=== PATIENT | male | born 1950 | race African-American/Black ===

== ENCOUNTER 2017-07-04 13:39 | Emergency (ER) | payer OTHER ==
[~2017-07-04] VITALS: Ht 180.3 cm; Wt 136.1 kg
[2017-07-04] MEDS ORDERED: METFORMIN HCL500 MG PO (13:54)
[2017-07-04] MEDS ORDERED: GLIPIZIDE 10 MG10 MG PO (13:54)
[2017-07-04] MEDS ORDERED: NEURONTIN300 MG PO (13:55)
[2017-07-04] MEDS ORDERED: ACTOS 30 MG TAB30 M2 PO (13:55)
[2017-07-04] MEDS ORDERED: MAXZIDE-25 MG1 EACH PO (13:55)
[2017-07-04] MEDS ORDERED: PROTONIX40 M1 PO (13:55)
[2017-07-04] MEDS ORDERED: FARXIGA10 MG PO (13:55)
[2017-07-04 16:24] LABS: HEMATOCRIT 39.8 % (42.0-52.0); HEMOGLOBIN 12.7 gm/dL (14.0-18.0); MCH 22.9 pg (26.0-34.0); MCV 71.7 fL (80.0-100.0); RBC 5.55 mil/uL (4.50-6.00); RDW 14.8 % (10.5-14.5); WBC 9.3 thou/uL (4.0-11.0)
[2017-07-04 16:31] LABS: CREATININE 2.1 mg/dL (0.7-1.3); POTASSIUM 3.9 mmol/L (3.5-5.1)
[2017-07-04 16:38] VITALS: BP 163/83
[2017-07-04] MEDS ORDERED: ELIQUIS5 MG PO (16:54)
[2017-07-04] MEDS ORDERED: HYDROCODONE-AP1 EAC6 PO (16:54)
== END 2017-07-04 19:00 | disposition home or self-care (01) ==
LOC: ER 13:39
PROVIDERS: Physician Assistant
DX: I82.412 Acute embolism and thrombosis of left femoral vein (principal); I82.432 Acute embolism and thrombosis of left popliteal vein; N17.9 Acute kidney failure, unspecified

== ENCOUNTER → 2017-07-09 | Outpatient (CLI) | payer OTHER ==
[~2017-07-09] MED LIST: ACTOS 30 MG TAB30 M2 PO; AMLODIPINE BESY10 MG PO; ELIQUIS5 MG PO; ENOXAPARIN150 MG/11 SUBQ; FARXIGA10 MG PO; GLIPIZIDE 10 MG10 MG PO; HYDROCODONE-AP1 EAC6 PO; LISINOPRIL20 MG PO; MAXZIDE-25 MG1 EACH PO; METFORMIN HCL500 MG PO; METOCLOPRAM5 MG/1 ML IV PUSH; MIRALAX17 GM PO; NEURONTIN300 MG PO; NOVOLOG100 UNIT/1 SUBQ; ONDANSETRON HCL4 M1 IV PUSH; PROTONIX40 M1 PO; [UNRECOGNIZED DRUG - CODE] IV
== END ==
LOC: ULTRA 10:44
DX: I82.4Y2 Acute embolism and thrombosis of unspecified deep veins of left proximal lower extremity (principal)

== ENCOUNTER 2017-08-10 12:38 | Inpatient (IN) | payer OTHER ==
[~2017-08-10] VITALS: Ht 180.3 cm; Wt 140.2 kg
--- NOTE | ~2017-08-10 | D ---
[facility] [place] [address] DISCHARGE SUMMARY Name: OLIVERCHRISTOPHER Room #: 459-P [facility] IN ..#: [id number] Admission: 08/10/17 Attend Phys: Emmanuel Carreon MD Discharge: 08/16/17 Date of : 46 Report #: [id number] THIS REPORT FOR: //name// CC: Emmanuel Carreon DATE OF SERVICE: 08/16/2017 SUMMARY OF HISTORY AND PHYSICAL: The patient presented to my office with a history of progressive intermittent abdominal pain with nausea and vomiting that became more constant over the previous 2 weeks. He attributed his symptoms to Eliquis, a new medication that was started when he was diagnosed with an acute left leg DVT in the [facility] on 07/04/2017. He required admission because he was dehydrated, he was unable to keep any fluids down, and he was in constant discomfort. SUMMARY OF HOSPITAL COURSE: He was admitted and placed on intravenous fluids, and had a noncontrast CT scan of his abdomen and pelvis. The CT showed marked distention of the stomach with recently ingested food and fluid with mild stranding along the side of the descending segment of the duodenum to the right of the pancreatic head suggesting possible duodenitis. Minor strand-like atelectasis of the lower lungs bilaterally was the only other abnormal finding. Mild mesenteric fat stranding along the side of the descending segment of the duodenum suggested possible duodenitis. He was seen in GI consultation and underwent an EGD the following day that revealed thickened folds in the second portion of the duodenum, either inflammatory or neoplastic in nature. There was some edema in the second portion of the duodenum as well as thickened folds of otherwise normal mucosa. The lumen was narrowed, but the scope passed easily. There was no obvious mass effect. Multiple biopsies were obtained. The stomach showed retained food material. The rest of the EGD examination and structures examined were normal. The patient was then started on intravenous metoclopramide 10 mg IV every 6 hours. His nausea improved slightly, but persisted over the next 3 days prior to his transfer to [facility]. He was able to drink only a mild amount of clear liquids, and was able to drink an occasional Ensure type supplement drink. Because of his poor oral intake he was started on peripheral intravenous protein solution. LABORATORY DATA: His biopsies from the second portion of the duodenum showed small bowel mucosa with mild peptic duodenitis; no evidence for celiac sprue nor dysplasia was seen. Stool for hidden blood was positive, but was obtained several days after the EGD [address] [address] DISCHARGE SUMMARY Name: CHRISTOPHER OLIVER Room #: 459-P [facility] IN [facility]#: [id number] Admission: 08/10/17 Attend Phys: Emmanuel Carreon MD Discharge: 08/16/17 Date of : 46 Report #: [id number] and biopsy were done. Admitting creatinine was 2.8, baseline in the office had been 2.4, but with adequate rehydration his baseline creatinine dropped to 1.5. BUN was 33 on admission and dropped to 14. His diabetes was handled by sliding scale insulin. His albumin the day after admission, with rehydration, was low at 2.7, fulfilling the criteria for severe malnutrition, consistent with his history of not eating much in the previous 2 weeks. He took a tremendous amount of magnesium containing antacid the 2 weeks prior to admission, and his admitting magnesium was elevated at 2.6. With rehydration it normalized to 1.9, and then immediately prior to transfer it was low at 1.6. WBCs on admission were 10.1 thousand with a very mild left shift of 70% segmented neutrophils. Hemoglobin was 11.8. Immediately prior to discharge hemoglobin was stable at 10.8. MCV was low at 71. Platelets were normal at 374,000. His hemoglobin A1c was elevated at 10.5, consistent with his previous history of poorly controlled diabetes. Urinalysis on admission was normal with the exception of trace protein and trace glucose. Ultrasound of the left leg was compared with 07/04/2017: At that time deep venous thrombosis involved the popliteal vein and the 2 distal left superficial femoral veins above the knee, with the common femoral, posterior tibial and peroneal veins remaining patent. The study of 07/09/2017 showed persisting thrombus in the superficial femoral vein, and the current Doppler on 08/10/2017 showed resolution with the exception of a small portion of the popliteal vein remaining thrombosed. There is an overall decrease in the amount of popliteal thrombus, but it remained occlusive. PA and lateral chest film showed shallow inspiration with mild strand-like atelectasis in both bases. DISCHARGE DIAGNOSES: 1. Functional gastric outlet obstruction. 2. Abnormal second portion of the duodenum with thickened folds and mucosal edema. No mass effect was seen, and the scope passed easily through this region. However, food particles were identified stuck in this area, and it is functionally obstructing drainage from the stomach. 3. Uncontrolled type 2 diabetes. [facility] [address] [place] [address] DISCHARGE SUMMARY Name: CHRISTOPHER OLIVER Room #: 459-P DIS IN M.R.#: [id number] Admission: 08/10/17 Attend Phys: Emmanuel Carreon MD Discharge: 08/16/17 Date of : 46 Report #: [id number] 4. Noncompliance with diet and diabetic medications. 5. Morbid obesity. 6. Criteria are met for severe malnutrition. 7. Hypertension. 8. Microcytic anemia. 9. Creatinine criteria were met for acute renal failure/acute kidney injury. 10. Mild to moderate chronic kidney disease. 11. Diabetic peripheral neuropathy. 12. Other problems as in the H & P. PLAN: The patient is being transferred to [facility] to obtain a procedure not available at our institution, endoscopic ultrasound biopsy of the abnormal area of the second portion of the duodenum. This area is deep to the surface, and not easily reached externally for a needle biopsy. For the patient's safety this procedure is much preferred as the next step in his evaluation. Despite full medical management, he still remains with a functional gastric outlet obstruction. A copy of this dictation will be sent to the accepting institution along with the complete medical record. By: 1118 1150 Emmanuel Carreon MD /nt
--- NOTE | ~2017-08-10 | H ---
[facility] [place] [address] HISTORY AND PHYSICAL Name: CHRISTOPHER OLIVER Room #: 459-P [facility] IN .R.#: [id number] Admission: 08/10/17 Attend Phys: Emmanuel Carreon MD Discharge: Date of : 46 Report #: [id number] THIS REPORT FOR: //name// CC: Emmanuel Carreon DATE OF SERVICE: 08/10/2017 MEDICATIONS: Triamterene 37.5 at nighttime, HCTZ 25 mg 1 daily, dicyclomine 20 mg every hours as needed for stomach pain, metformin 1000 mg twice daily, meloxicam 15 mg once daily as needed for arthritis pain, furosemide 40 mg 1 daily as needed for swelling and he has not needed this medicine recently. Fish oil daily. Amlodipine and/benazepril 20 one daily at nighttime, Farxiga 10 mg twice daily for diabetes, pioglitazone 30 mg once daily at night for diabetes, pantoprazole 40 mg daily at night, glipizide 10 mg twice daily, Eliquis 5 mg twice daily, Toujeo 10 units in the evening at bedtime, warfarin has adjusted, and hydrocodone 5/325 from his recent time in the Emergency Room. OBJECTIVE: GENERAL: Shows an obese -[place]ib[place] male who appears uncomfortable and weak. HEENT: His oropharynx mucosa is dry. LUNGS: Clear. CARDIOVASCULAR: His heart tones are unremarkable. EXTREMITIES: He has trace 1+ ankle edema. LABORATORY DATA: His creatinine is elevated at 2.8 compared with his baseline of 2.4. CT scan of the abdomen with [id number] shows a large amount of retained fluid and food debris in the stomach itself. Blood sugars varied between 146 and 206. His blood pressures are 148/53-172/72. Urinalysis is unremarkable. Abdominal report of the CT scan showed marked distention of the stomach with recently ingested food and fluid as contents. There is mild stranding along the descending segment of the duodenum (to the right of the pancreatic head) thus, suggesting possibly duodenitis. The gallbladder is mildly distended, but no pericholecystic inflammatory changes are identified. ASSESSMENT: 1. Acute gastric retention. 2. Dehydration with acute kidney injury/ creatinine rise criteria for acute renal failure. 3. Hypertension. 4. Uncontrolled DM II [address] [address] HISTORY AND PHYSICAL Name: CHRISTOPHER OLIVER Room #: 459-P [facility] IN [facility].#: [id number] Admission: 08/10/17 Attend Phys: Emmanuel Carreon MD Discharge: Date of : 46 Report #: [id number] 5. Subacute DVT left knee PLAN: He will be seen in GI consultation for an EGD. His INR will be corrected. He was on 1/2 dose of eliquis with last dose yesterday, and it is on hold, to wait up to 5 days from the last dose. With all his nausea and vomiting, he will be n.p.o. If symptoms are worse, then an NG tube will be placed. By: 0133 [id number] Emmanuel Carreon MD /romel
--- NOTE | ~2017-08-10 | P ---
[facility] [place] [address] PROCEDURE REPORT Name: CHRISTOPHER OLIVER Room #: 459-P [facility] IN M.R.#: [id number] Admission: 08/10/17 Attend Phys: Emmanuel Carreon MD Discharge: Date of : 46 Report #: [id number] THIS REPORT FOR: //name// CC: Emmanuel Carreon MD BRIEF HISTORY: The patient is a 67-year-old male with nausea and vomiting and abnormal CT with fat necrosis in the region of the duodenum. PREOPERATIVE DIAGNOSES: Nausea, vomiting, and abnormal duodenum. POSTOPERATIVE DIAGNOSES: 1. Thickened folds in the second portion of duodenum, inflammatory versus neoplastic. 2. Retained food material in the stomach, partial outlet obstruction versus gastroparesis. MEDICATIONS: Deep sedation with propofol per anesthesia. SPECIMEN: Biopsy second portion of duodenum. ESTIMATED BLOOD LOSS: 3 mL. PROCEDURE: EGD with biopsy. DESCRIPTION OF PROCEDURE: Prior to propofol sedation, the procedure of upper endoscopy was discussed with the patient as well as potential risks, benefits, and complications. He indicates he understands and desires to proceed. With the patient in left lateral decubitus position, the [employer] video endoscope was inserted in the cervical esophagus under direct vision without difficulty. Examination of this organ through its entire length revealed normal esophageal mucosa down the squamocolumnar junction. Squamocolumnar junction was inspected and noted to be unremarkable. Scope was advanced in the stomach, which was examined on end view as well as retroflexed views. There was a pool of amorphous specimen material in the fundus of the stomach. There was a minimal amount of liquid. Within these limitations, exam of the stomach on end view as well as retroflexed views revealed unremarkable gastric mucosa. No mass lesions were seen. The pylorus was noted to be unremarkable , duodenal bulb was normal. However, in the very distal bulb, there was a small amount of food debris. The lumen was narrowed, but the scope passed easily through the second portion of duodenum into the third portion of duodenum, which had normal mucosa and normal luminal size. As well as we could the second portion of duodenum was inspected. The mucosa was intact. There was some edema. I do not see any obvious mass effect, but a neoplastic lesion could not be entirely excluded. The scope was passed through this area on several occasions. Multiple biopsies were obtained. At that point, the scope was slowly withdrawn and careful [address] [address] PROCEDURE REPORT Name: OLIVERCHRISTOPHER Room #: 459-P [facility] IN .R.#: [id number] Admission: 08/10/17 Attend Phys: Emmanuel Carreon MD Discharge: Date of : 46 Report #: [id number] circumferential views confirmed the above findings. The patient tolerated the procedure well. DISPOSITION: The patient with evidence of a process in the second portion of duodenum. The mucosa appeared to be edematous, a neoplastic process cannot be entirely excluded. We will follow up on biopsies. If biopsies are nondiagnostic, may need to consider further investigation, possibly a needle biopsy or surgical evaluation. <ELECTRONICALLY SIGNED> By: Steve Gil MD 08/12/17 1759 1403 1624 Steve Gil MD /nt
--- NOTE | ~2017-08-10 | S ---
[facility] [place] [address] SURGICAL PATH RPT PROCEDURE Name: CHRISTOPHER OLIVER Room #: 459-P ADM IN M.R.#: [id number] Admission: 08/10/17 Date of : 46 Discharge: Report #: [id number] Path Case #: [id number] PATHOLOGY REPORT COLLECTION DATE: 08/12/2017 RECEIVED DATE: 08/12/2017 SUBMITTING PHYS: Dr. Steve Gil OTHER PHYS: Dr. Emmanuel Carreon SPECIMEN(S) RECEIVED: A.2nd portion duodenum * * * * * * * * * * * * FINAL DIAGNOSIS: "Second portion duodenum", biopsy: - Small bowel mucosa with mild peptic duodenitis; no evidence of celiac sprue and no dysplasia seen. (CLW:marquita; 08/13/2017) PATHOLOGIST: Arina Lockett M.D. REPORT ELECTRONICALLY SIGNED BY: Arina Lockett M.D. DATE/TIME: 08/13/2017 13:48 * * * * * * * * * * * * GROSS PATHOLOGY: Received in formalin labeled "BOB Vigil second portion duodenum, rule out neoplasm," are 4 segments of moralez soft tissue measuring 1.4 x 1.3 x 0.3 cm in aggregate dimensions and ranging from 0.1 to 0.4 cm in maximum dimension. The specimen is submitted entirely in cassette A1. (TSD; 08/12/2017) CLINICAL HISTORY: Pre-OP DX: Nausea, vomiting, abnormal duodenum on CT Post-OP DX: Abnormal duodenum INITIAL CPT CODE(S): A; 07444 Professional services performed by [facility] at [facility] [address], [place] [address] Technical services performed by [facility] at [address] [place] [address]. [facility] [address] [place] [address] SURGICAL PATH RPT PROCEDURE Name: CHRISTOPHER OLIVER Room #: 459-P ADM IN M.R.#: [id number] Admission: 08/10/17 Date of : 46 Discharge: Report #: [id number] Path Case #: [id number] [facility] [address] [address] PHONE: [phone] DIRECTOR: Nikunj Mary M.D. * * * END OF REPORT * * *
[2017-08-10 13:45] VITALS: BP 143/81
[2017-08-10 15:15] LABS: ABSOLUTE NEUTROPHILS 7.5 thou/uL (1.4-8.2); BASOPHILS 1.2 % (0.0-2.0); EOSINOPHILS 1.7 % (0.0-3.0); HEMATOCRIT 37.5 % (42.0-52.0); HEMOGLOBIN 11.8 gm/dL (14.0-18.0); LYMPHOCYTES 15.3 % (24.0-44.0); MCH 22.3 pg (26.0-34.0); MCHC 31.4 g/dL (28.0-37.0); MONOCYTES 11.6 % (1.0-8.0); PLATELET COUNT 374 thou/uL (150-400); POLYS 70.2 % (36.0-66.0); RBC 5.28 mil/uL (4.50-6.00); RDW 14.6 % (10.5-14.5); WBC 10.6 thou/uL (4.0-11.0)
[2017-08-10 15:30] LABS: ALBUMIN 3.2 g/dL (3.4-5.0); CALCIUM 10.3 mg/dL (8.5-10.1); CREATININE 2.8 mg/dL (0.7-1.3); POTASSIUM 4.4 mmol/L (3.5-5.1); TOTAL BILIRUBIN 0.2 mg/dL (<0.1-1.0); TOTAL PROTEIN 7.6 g/dL (6.4-8.2)
[2017-08-10 15:33] LABS: APTT 32.9 Seconds (24.5-32.8); INR 1.9
[2017-08-10 15:46] LABS: ANISOCYTOSIS 1+; HYPOCHROMASIA 1+
[2017-08-10 15:57] LABS: % SATURATION 15 % (20-39); IRON 38 ug/dL (65-175); TIBC 255 ug/dL (250-450)
[2017-08-10 16:35] VITALS: BP 149/83
[2017-08-10 19:16] VITALS: BP 144/67
[2017-08-11 02:10] LABS: GLYCOHEMOGLOBIN (HGB A1C) 10.5 % (4.8-5.6)
[2017-08-11 04:10] VITALS: BP 147/78
[2017-08-11 06:02] LABS: URINE BILIRUBIN NEGATIVE (Negative); URINE BLOOD NEGATIVE (Negative); URINE CLARITY CLEAR; URINE COLOR YELLOW; URINE GLUCOSE-RANDOM* TRACE (Negative); URINE KETONES NEGATIVE (Negative); URINE LEUKOCYTES-REFLEX NEGATIVE (Negative); URINE NITRITE-REFLEX NEGATIVE (Negative); URINE PROTEIN (DIPSTICK) TRACE (Negative); URINE SPECIFIC GRAVITY 1.015 (1.005-1.035); URINE UROBILINOGEN 0.2 E.U./dl (0.2-1.0)
[2017-08-11 06:12] LABS: HEMATOCRIT 34.7 % (42.0-52.0); HEMOGLOBIN 11.1 gm/dL (14.0-18.0); MCH 22.6 pg (26.0-34.0); MCV 70.7 fL (80.0-100.0); RBC 4.91 mil/uL (4.50-6.00); RDW 14.3 % (10.5-14.5); WBC 7.6 thou/uL (4.0-11.0)
[2017-08-11 06:15] LABS: ALBUMIN 2.7 g/dL (3.4-5.0); CALCIUM 9.4 mg/dL (8.5-10.1); CREATININE 2.4 mg/dL (0.7-1.3); POTASSIUM 3.8 mmol/L (3.5-5.1); TOTAL BILIRUBIN 0.2 mg/dL (<0.1-1.0); TOTAL PROTEIN 6.7 g/dL (6.4-8.2)
[2017-08-11 06:19] LABS: PROTIME 20.6 Seconds (9.3-11.4)
[2017-08-11 08:00] VITALS: BP 137/62
[2017-08-11 15:48] VITALS: BP 147/70
[2017-08-11 20:53] VITALS: BP 153/75
[2017-08-12 03:19] VITALS: BP 157/75
[2017-08-12 06:44] LABS: INR 1.2; PROTIME 12.1 Seconds (9.3-11.4)
[2017-08-12 06:46] LABS: CALCIUM 9.2 mg/dL (8.5-10.1); CREATININE 1.8 mg/dL (0.7-1.3); MAGNESIUM 1.9 mg/dL (1.8-2.4); POTASSIUM 4.1 mmol/L (3.5-5.1)
[2017-08-12 17:05] VITALS: BP 130/84
[2017-08-12 17:20] VITALS: BP 158/78
[2017-08-12 19:12] VITALS: BP 150/62
[2017-08-12 23:57] VITALS: BP 154/86
[2017-08-13 03:18] VITALS: BP 142/60
[2017-08-13 08:13] VITALS: BP 156/70
[2017-08-13 13:04] LABS: HEMATOCRIT 37.8 % (42.0-52.0); MCH 22.4 pg (26.0-34.0); MCHC 31.7 g/dL (28.0-37.0); MCV 70.7 fL (80.0-100.0); RBC 5.35 mil/uL (4.50-6.00); RDW 14.4 % (10.5-14.5); WBC 11.3 thou/uL (4.0-11.0)
[2017-08-13 15:50] VITALS: BP 171/70
[2017-08-13 16:37] LABS: HEMOGLOBIN 11.7 gm/dL (14.0-18.0); MCH 22.3 pg (26.0-34.0); MCHC 31.5 g/dL (28.0-37.0); MCV 70.8 fL (80.0-100.0); RBC 5.22 mil/uL (4.50-6.00); RDW 14.7 % (10.5-14.5); WBC 9.6 thou/uL (4.0-11.0)
[2017-08-13 16:47] LABS: CALCIUM 9.2 mg/dL (8.5-10.1); CREATININE 1.7 mg/dL (0.7-1.3); POTASSIUM 3.6 mmol/L (3.5-5.1)
[2017-08-13 19:46] VITALS: BP 174/87
[2017-08-14 03:11] VITALS: BP 147/78
[2017-08-14 07:08] VITALS: BP 155/83
[2017-08-14 07:37] LABS: CALCIUM 9.1 mg/dL (8.5-10.1); CREATININE 1.6 mg/dL (0.7-1.3)
[2017-08-14] MEDS ORDERED: ENOXAPARIN150 MG/11 SUBQ (09:12)
[2017-08-14] MEDS ORDERED: NOVOLOG100 UNIT/1 SUBQ (09:12)
[2017-08-14] MEDS ORDERED: PROTONIX40 M1 PO (09:12)
[2017-08-14] MEDS ORDERED: ONDANSETRON HCL4 M1 IV PUSH (09:12)
[2017-08-14] MEDS ORDERED: MIRALAX17 GM PO (09:12)
[2017-08-14] MEDS ORDERED: METOCLOPRAM5 MG/1 ML IV PUSH (09:12)
[2017-08-14 16:09] VITALS: BP 150/73
[2017-08-14 19:35] VITALS: BP 155/75
[2017-08-15 03:45] VITALS: BP 165/70
[2017-08-15 06:33] LABS: CREATININE 1.5 mg/dL (0.7-1.3)
[2017-08-15 08:07] VITALS: BP 174/87
[2017-08-15 16:20] VITALS: BP 151/76
[2017-08-15 19:54] VITALS: BP 163/84
[2017-08-16 03:32] VITALS: BP 142/82
[2017-08-16 05:49] LABS: HEMATOCRIT 34.5 % (42.0-52.0); HEMOGLOBIN 10.8 gm/dL (14.0-18.0); MCHC 31.2 g/dL (28.0-37.0); MCV 70.5 fL (80.0-100.0); RBC 4.89 mil/uL (4.50-6.00); RDW 14.5 % (10.5-14.5); WBC 7.3 thou/uL (4.0-11.0)
[2017-08-16 05:57] LABS: ALBUMIN 2.4 g/dL (3.4-5.0); CALCIUM 9.3 mg/dL (8.5-10.1); CREATININE 1.5 mg/dL (0.7-1.3); PHOSPHORUS 3.7 mg/dL (2.5-4.9); POTASSIUM 3.8 mmol/L (3.5-5.1)
[2017-08-16 09:18] VITALS: BP 154/70
[2017-08-16] MEDS ORDERED: MIRALAX17 GM PO (10:31)
[2017-08-16] MEDS ORDERED: LISINOPRIL20 MG PO (10:31)
[2017-08-16] MEDS ORDERED: AMLODIPINE BESY10 MG PO (10:31)
[2017-08-16] MEDS ORDERED: [UNRECOGNIZED DRUG - CODE] IV (10:36)
[2017-08-19 17:09] LABS: URINE 5-HIAA 2.5 mg/L (Undefined); URINE 5-HIAA 6.3 mg/24 hr (0.0-14.9)
== END 2017-08-16 11:52 | disposition short-term general hospital (02) | DRG 380 ==
LOC: TBA 12:38 → 4W 12:40 → TBACV 13:22 → 4W 13:52
PROVIDERS: Internal Medicine; Internal Medicine Gastroenterology; Nurse Practitioner
PROC: 0DB98ZX Excision of Duodenum, Via Natural or Artificial Opening Endoscopic, Diagnostic (ICD-10-PCS; principal; 2017-08-12)
DX: K31.1 Adult hypertrophic pyloric stenosis (principal); E43 Unspecified severe protein-calorie malnutrition; N17.9 Acute kidney failure, unspecified; I82.4Z2 Acute embolism and thrombosis of unspecified deep veins of left distal lower extremity; Z68.41 Body mass index [BMI] 40.0-44.9, adult; E83.41 Hypermagnesemia; E11.43 Type 2 diabetes mellitus with diabetic autonomic (poly)neuropathy; K31.84 Gastroparesis; D50.9 Iron deficiency anemia, unspecified; K59.00 Constipation, unspecified; E86.0 Dehydration; E11.65 Type 2 diabetes mellitus with hyperglycemia; K31.89 Other diseases of stomach and duodenum; E66.01 Morbid (severe) obesity due to excess calories; E11.22 Type 2 diabetes mellitus with diabetic chronic kidney disease; E11.42 Type 2 diabetes mellitus with diabetic polyneuropathy; I12.9 Hypertensive chronic kidney disease with stage 1 through stage 4 chronic kidney disease, or unspecified chronic kidney disease; N18.3 Chronic kidney disease, stage 3 (moderate); Z83.79 Family history of other diseases of the digestive system; Z79.899 Other long term (current) drug therapy; Z79.4 Long term (current) use of insulin; Z79.84 Long term (current) use of oral hypoglycemic drugs; Z91.19 Patient's noncompliance with other medical treatment and regimen
CPT/HCPCS: 10045; 62110; 62900; 70005

== ENCOUNTER → 2017-08-10 | Outpatient (CLI) | payer OTHER ==
[~2017-08-10] MED LIST changes: -AMLODIPINE BESY10 MG PO; -ENOXAPARIN150 MG/11 SUBQ; -LISINOPRIL20 MG PO; -METOCLOPRAM5 MG/1 ML IV PUSH; -MIRALAX17 GM PO; -NOVOLOG100 UNIT/1 SUBQ; -ONDANSETRON HCL4 M1 IV PUSH; -[UNRECOGNIZED DRUG - CODE] IV
== END ==
LOC: ULTRA 05:53 → TBA 12:28 → ULTRA 12:28
DX: I80.202 Phlebitis and thrombophlebitis of unspecified deep vessels of left lower extremity (principal); M79.89 Other specified soft tissue disorders

== ENCOUNTER 2018-07-09 11:36 | Inpatient (IN) | payer OTHER ==
[~2018-07-09] VITALS: Ht 180.3 cm; Wt 93.9 kg
--- NOTE | ~2018-07-09 | P ---
[facility] [place] [address] PROCEDURE REPORT Name: OLIVERCHRISTOPHER Room #: 453-P [facility] IN ..#: [id number] Admission: 07/09/18 ������������������ Attend Phys: Sil Carreon MD Discharge: ������������������ Date of : 46 Report #: [id number] THIS REPORT FOR: //name// CC: SIL Carreon DATE OF SERVICE: 07/13/2018 PROCEDURE PERFORMED: Upper endoscopy with biopsies. HISTORY OF PRESENT ILLNESS: The patient is a 67-year-old male with a history of pancreatic cancer, status post Whipple resection in 02/2018, was admitted with nausea, vomiting and weakness, decreased appetite. Last chemotherapy was performed in May of this year. The patient underwent a CT scan of the abdomen and pelvis on 07/09/2018, which showed diffuse fatty infiltration of the liver, mild circumferential duodenal wall thickening involving the first and second portions of the duodenum, this may represent infectious or inflammatory duodenitis, although could represent a neoplastic process. Endoscopic correlation recommended. Previous cholecystectomy changes noted, no evidence of gastric outlet obstruction. Gastric emptying study was performed on 07/10/2018, normal gastric emptying time noted. Plan is for EGD. DESCRIPTION OF PROCEDURE: The risks and benefits of the procedure were explained to the patient, those risks including but not limited to bleeding, perforation and the risk of sedation. He understood these risks and gave informed consent. Sedation was given using propofol per anesthesia. Next, using a standard Olympus upper endoscope, the scope was placed in the patient's mouth and advanced under direct vision through the esophagus, the remaining stomach and into both the afferent and efferent limbs of his jejunum. The larynx was normal in appearance. The esophagus was normal throughout. The GE junction was normal. There was a diffuse gastritis noted in the remaining stomach. Biopsies were obtained. No evidence of ulcerations or bleeding. The surgical anastomosis was noted. This was widely patent. I was able to advance the scope both down the efferent and afferent limbs. I advanced the scope as far as possible. Close examination of both limbs showed no abnormalities. There was no evidence of inflammation or ulcerations. No masses were noted. Random biopsies were obtained. At this point, the scope was then withdrawn and the procedure terminated. The patient tolerated the procedure well. IMPRESSION: 1. Gastritis. 2. Surgical anastomosis noted, widely patent. 3. Normal efferent and afferent limbs of the jejunum. No abnormalities noted. RECOMMENDATIONS: 1. Await biopsy results. [address] [address] PROCEDURE REPORT Name: CHRISTOPHER OLIVER Room #: 453-P [facility] IN .R.#: [id number] Admission: 07/09/18 ������������������ Attend Phys: Sil Carreon MD Discharge: ������������������ Date of : 46 Report #: [id number] 2. Continue PPI therapy. 3. The patient has improved somewhat with Zofran, could continue this long-term. Also, consider possibly adding a promotility agent. Thank you for allowing me to participate in his care. ��������������������������������������������� ���������������������������������������� By: ��������������������������������������������� 1224 0152 Surya Martini, /romel
--- NOTE | ~2018-07-09 | D ---
[facility] [place] [address] DISCHARGE SUMMARY Name: BENITOCHRISTOPHER Room #: 453-P [facility] IN ..#: [id number] Admission: 07/09/18 ������������������ Attend Phys: Emmanuel Carreon MD Discharge: 07/14/18 ������������������ Date of : 46 Report #: [id number] THIS REPORT FOR: //name// CC: Gertrudis Carreon DATE OF SERVICE: 07/14/2018 SUMMARY OF HISTORY AND PHYSICAL: The patient presented to the Emergency Room because of progressive weakness, dehydration, and electrolyte abnormalities that got to the point that he was so weak that he fell and hit his head at home. He had persistent epigastric discomfort and abdominal pain that was worse on an empty stomach, but did not really feel better when eating and weight loss. In the Emergency Room, he was found to be dehydrated and have a low magnesium and potassium to require full inpatient hospital evaluation to determine the source. Additionally, he reported that his chemotherapy regimen of FOLFIRINOX and Decadron ordinarily every 2 weeks had been on hold for 1-2 months because of his malaise and poor performance status. SUMMARY OF HOSPITAL COURSE: He was admitted and his potassium and magnesium were replaced intravenously. Initially, his abdominal pain was thought to be from rearrangement of his outpatient medications involving a reduction of his pantoprazole from twice to once a day, institution of duloxetine 30 mg once daily for foot pain by his claims processor, and on his own, he thought it best to discontinue his nighttime gabapentin. His duloxetine was discontinued, twice daily pantoprazole was resumed as was his nighttime 600 mg of gabapentin; but he did not have any relief. CT abdomen showed thickened duodenal folds. A gastric emptying study was performed because of a suggestion of gastroparesis last year prior to his Whipple surgery: Residual activity 1 hour was 73%; 2 hours, 55%; 3 hours, 13%; and 4 hours, 4% -- all in the range of normal. An EGD was performed. As far as the scope would go into both the afferent and efferent limbs of his jejunum: The larynx was normal, the esophagus was normal, GE junction normal with diffuse gastritis in the remaining stomach. Surgical anastomosis was widely patent and appeared normal. Random biopsies are pending at the time of dictation. He was seen on the day of discharge by Dr. Mary Anne Glover, who felt that he was experiencing bile reflux gastritis pain as a result of his Whipple surgery. Sucralfate slurry 1 gram half an hour before meals and again at bedtime was [address] [address] DISCHARGE SUMMARY Name: OLIVERCHRISTOPHER Room #: 453-P [facility] IN ..#: [id number] Admission: 07/09/18 ������������������ Attend Phys: Emmanuel Carreon MD Discharge: 07/14/18 ������������������ Date of : 48 Report #: [id number] recommended and embraced by the patient. She noted that the distal antrectomy and vagotomy as part of the Whipple procedure removed his ability to make stomach acid. He was told to set aside his pantoprazole medication as he might not need it. Despite his constipation, he was able to have stools in the hospital after taking MiraLax. His iron levels were low and he was given 200 mg of Venofer. He reported nonspecific dizziness and unsteadiness while walking. This improved slightly with rehydration and replacement of his electrolytes. His blood pressure was low on admission, but with worship of his fluid volume, his blood pressure came up and his amlodipine 10/benazepril 20 mg capsules were resumed. He did have a small bruise in his left forehead from where he fell and his head hit furniture the night before admission; he was followed neurologically in the hospital without evidence of significant head injury. LABORATORY DATA: Potassium on admission was 3.4 and after replaced was 3.7, BUN was 15 and at discharge was 8. Creatinine was 1.3 and at discharge was 1.1. Fingerstick blood sugars varied from 99-246 and he instructed the nurses on how much insulin he would take according to a regimen evaluated by his disc ruler operator at [facility]. Magnesium was 1.7, and replaced, was again mildly low at 1.7 at discharge. Albumin was 1.8 on admission, qualifying for severe malnutrition. Lactic acid 1.1. Troponin negative at 0.06. Iron was low at 48. INR normal at 1.1. Hemoglobin was 9.7 on admission. He indicated this was hemoconcentrated with his usual hemoglobin being in the middle 7s to the middle 8s. He was 8.3 at discharge after rehydration. MCV 74.3, platelets 267,000. Influenza A and B were negative. Folate 19.6, B12 964. Low iron levels (see below) and given 200mg of venofer. Urinalysis was negative except for trace of glucose and 1+ blood. Blood cultures and urine cultures showed no growth. CT of the head without contrast on admission showed imaged portions of his paranasal sinuses to be well aerated. CT scan of the abdomen and pelvis on admission with 75 mL of Omnipaque showed degenerative diseases of the thoracolumbar spine. Extensive fatty liver. Left adrenal adenoma/mild lipoma is unchanged over the previous year. Calcified atherosclerotic vascular disease was seen. Mild circumferential duodenal wall thickening involving the first and second portions of the duodenum was seen. No pathologic adenopathy was identified. [facility] [address] [place] [address] DISCHARGE SUMMARY Name: CHRISTOPHER OLIVER Room #: 453-P [facility] IN [facility]#: [id number] Admission: 07/09/18 ������������������ Attend Phys: Emmanuel Carreon MD Discharge: 07/14/18 ������������������ Date of : 48 Report #: [id number] Nuclear medicine gastric emptying study was normal. Venous ultrasound of the left leg where an acute DVT was seen 07/04/2017 and three-quarter resolution was seen 08/10/2017, now showed no evidence for DVT or abnormalities in the function of veins of the left leg. DISCHARGE DIAGNOSES: 1. Reflux bile gastritis is felt to be the source of his dyspepsia, malaise and poor performance, volume depletion and electrolyte abnormalities. 2. Profound volume depletion. 3. Hypokalemia. 4. Hypomagnesemia. 5. Anemia with low serum iron and normal folate and B12. 6. Thickened duodenal fold seen on CT scan, normal appearing on EGD with multiple biopsies pending. 7. Constipation, responded to MiraLax. 8. Severe malnutrition. 9. Status post Whipple procedure. 10. Chronic foot pain/diabetic neuropathic pain. 11. Type 2 diabetes requiring low doses of insulin. 12. Imaged portions of the head and skull showed no significant sinusitis -- he was concerned he might have sinusitis. 13. Nonspecific dizziness related to his multiple medical problems. 14. Hypertension. 15. Hyperlipidemia. 16. History of deep venous thrombosis of the left calf in 06/2017 with pulmonary embolus - deep venous thromboses completely resolved. 17. History of obstructive sleep apnea. 18. Chronic abdominal pain requiring oxycodone. 19. Other medical problems as mentioned above. PLAN: 1. He is discharged on 1 gram of sucralfate slurry half an hour before meals and at bedtime - This can be increased to 2 grams later. 2. He is to set aside his pantoprazole in as much as he no longer makes acid. 3. He is to continue his regimen of oxycodone 10, ondansetron 4 or 8 mg, gabapentin 600 mg, Tylenol, and 2 stool softeners at bedtime. He is to continue his morning regimen of tramadol and MiraLax. Amlodipine 10/benazepril 20 mg daily. Eliquis 5 mg twice daily. Sliding scale insulin as he used before at home. 4. Oral iron is to be postponed until his abdominal pain and symptoms have responded to treatment. Oral magnesium may be indicated. 5. He is to see me in my office in approximately 10 days with all of his medications and to bring his insulin; CMP, CBC and magnesium levels will be repeated at that time. [address] [address] DISCHARGE SUMMARY Name: CHRISTOPHER OLIVER Room #: 453-P [facility] IN M.R.#: [id number] Admission: 07/09/18 ������������������ Attend Phys: Emmanuel Carreon MD Discharge: 07/14/18 ������������������ Date of : 46 Report #: [id number] 6. Note: He still has an Infusaport in his right upper chest. 7. Biopsies of duodenum/jejunem pending. Add: June 2017 he delevoped a DVT in his left leg. It is completely resolved now. It may have been caused by his pancreatic cancer, which is now treated. ��������������������������������������������� ���������������������������������������� By: ��������������������������������������������� [id number] Emmanuel Carreon MD /nt
--- NOTE | ~2018-07-09 | H ---
[facility] [place] [address] HISTORY AND PHYSICAL Name: CHRISTOPHER OLIVER Elliott Room #: 453-P [facility] IN ..#: [id number] Admission: 07/09/18 ������������������ Attend Phys: Emmanuel Carreon MD Discharge: ������������������ Date of : 48 Report #: [id number] THIS REPORT FOR: //name// CC: Emmanuel Carreon DATE OF SERVICE: 07/09/2018 CHIEF COMPLAINT: Progressive dyspepsia with dehydration and electrolyte abnormalities. HISTORY OF PRESENT ILLNESS: The patient presented to the Emergency Room with a 1-2 week period of progressive weakness that became so severe that he tripped and fell hitting his left forehead last night. He has had several other falls without injury over the last several days. He had progressive loss of appetite and reduced fluid intake. He had nausea and some vomiting. In the ER he was found to be dehydrated with a low magnesium of 1.7 and a low potassium of 3.4. He remembers that his hemoglobin was either 7+ or 8+ when he was at the oncologist's office 2 weeks ago, and in the Emergency Room, it was markedly elevated at 9.7. A very dry oropharynx on exam also showed significant volume depletion. He was given a liter of IV fluid, but that was not sufficient to relieve the weakness and nausea, and inpatient admission was indicated. Approximately 2 weeks ago, several medication changes took place within a few days of each other: His insurance company refused to cover pantoprazole twice a day, indicating that it simply was not a covered benefit no matter what the medical indication was, so he was no longer able to take the afternoon dose. His emts started a new medication, duloxetine 30 mg once daily. At the same time, he and his thought that it was for swelling in his feet, and hat he should stop taking his gabapentin. He was progressively weak through nausea and not eating or drinking such that he was weak enough that he fell several times. Last night, he fell and hit his left forehead. PMH: An EGD was performed by Dr. Gil on 08/12/2017 at which time, he was felt to have gastroparesis from his diabetes, as well as a possible more distal duodenal obstruction. He was transferred to the [facility] where he was found to have a pancreatic cancer and underwent surgery followed by chemotherapy. He had a port and PEG tube placed. The PEG tube was since removed. He also has morbid obesity and longstanding uncontrolled type 2 diabetes mellitus with diabetic neuropathy. Currently he needs very little insulin because of his baseline weakness, reduced appetite, and poor GI motility. He has essential hypertension, hyperlipidemia, history of deep venous thrombosis in the left calf, history of pulmonary embolus, obstructive sleep apnea, GERD, [facility] [address] [place] [address] HISTORY AND PHYSICAL Name: CHRISTOPHER OLIVER Room #: 453-P [facility] IN ..#: [id number] Admission: 07/09/18 ������������������ Attend Phys: Emmanuel Carreon MD Discharge: ������������������ Date of : 48 Report #: [id number] and blood loss anemia. CURRENT MEDICATIONS: Consist of amlodipine 10/benazepril 20 mg 1 daily, Eliquis 5 mg twice daily, gabapentin 300 mg 2 capsules at bedtime was stopped 2 weeks ago. He is on sliding scale insulin, using only 1or 2 units at bedtime for the last couple of nights. He is on ondansetron 4 mg po two times a day chronicly for nausea, pantoprazole 40 mg once in the morning (used to have a second one in the afternoon), and MiraLax 17 gms powder packet/two packages daily. His bedtime regimen is Oxycodone 10 mg, Zofran 4 or 8mg, Tylenol and 2 stool softeners. His morning regimen is Tramadol and MiraLax. He also uses a liquid antacid like Maalox and unnamed stimulant laxative. REVIEW OF SYSTEMS: As in the HPI above, except he would like a strong effective laxative for his constipation, which has been worse recently. PHYSICAL EXAMINATION: GENERAL: Shows an obese male, appearing pale and weak. HEENT: Oropharynx is quite dry. NECK: Negative. LUNGS: Clear. CARDIOVASCULAR: Heart tones are normal. ABDOMEN: Soft, nontender, without hepatosplenomegaly or masses. EXTREMITIES: There is mild edema in both lower extremities. LABORATORY DATA: His magnesium is low as 1.7. His baseline hemoglobin is around 7+, and in the ER is 9.7. ASSESSMENT: 1. Significant volume depletion/dehydration caused by recent complex change in medications, not the least of which is the unwanted effect of dose reduction by his insurance company from reduction of pantoprazole 40 mg once a day. The discontinuation of gabapentin 600 mg at bedtime, which has been helpful with chronic neuropathic pain, and the initiation of a new medicine duloxetine and its frequent side effect of nausea. 2. Low potassium and low magnesium. 3. Hemoconcentration with an elevated hemoglobin compared to earlier this week. 4. Longstanding poorly controlled type 2 diabetes and neuropathy and gastroparesis. 5. Morbid obesity. 6. Gastroparesis. 7. Pancreatic cancer, stable on chemotherapy with current several month long chemotherapy holiday. 8. Other medical problems in his previous records. 9. Constipation. [facility] [address] [place] [address] HISTORY AND PHYSICAL Name: CHRISTOPHER OLIVER Room #: 453-P [facility] IN [facility]#: [id number] Admission: 07/09/18 ������������������ Attend Phys: Emmanuel Carreon MD Discharge: ������������������ Date of : 48 Report #: [id number] He was given a liter of IV fluid during his 4-hour Emergency Room stay without improvement in his symptoms and without his ability to walk without falling. PLAN: Full admission with slow intravenous fluids. Oral and intravenous potassium and magnesium replacement. Close clinical monitoring. Institution of lactulose protocol for his constipation. ��������������������������������������������� ���������������������������������������� By: ��������������������������������������������� 0122 [id number] Emmanuel Carreon MD /nt
--- NOTE | ~2018-07-09 | D ---
[facility] [place] [address] DISCHARGE SUMMARY Name: CHRISTOPHER OLIVER Room #: 453-P [facility] IN ..#: [id number] Admission: 07/09/18 ������������������ Attend Phys: Emmanuel Carreon MD Discharge: 07/14/18 ������������������ Date of : 48 Report #: [id number] THIS REPORT FOR: //name// CC: Emmanuel Carreon DATE OF SERVICE: 07/14/2018 ADDENDUM. EGD: He first developed a DVT in 06/2017. He thought it was caused by a fall and leg injury that he had at that time. Two months later, he was discovered to have a pancreatic cancer, which is known to be a cause for venous thrombotic activity. With complete resolution of his thrombus, removal and treatment of his pancreatic cancer, it could be considered to discontinue his anticoagulation or relax anticoagulation a little bit more if undergoing procedures. ��������������������������������������������� ���������������������������������������� By: ��������������������������������������������� [id number] Emmanuel Carreon MD /nt
--- NOTE | ~2018-07-09 | H ---
[facility] [place] [address] HISTORY AND PHYSICAL Name: CHRISTOPHER OLIVER Elliott Room #: 453-P [facility] IN ..#: [id number] Admission: 07/09/18 ������������������ Attend Phys: Emmanuel Carreon MD Discharge: ������������������ Date of : 48 Report #: [id number] THIS REPORT FOR: //name// CC: Emmanuel Carreon DATE OF SERVICE: 07/09/2018 CHIEF COMPLAINT: Weakness, nausea, vomiting and decreased appetite. He fell and hit his head. HISTORY OF PRESENT ILLNESS: He reported to the Emergency Room physician for about the last 5-7 days, he has been feeling progressively weaker and lethargic. He has malaise and diffuse dull body aches and constipation. His weakness has made it more difficult for him to walk around his house. He actually fell last night at home and hit his left forehead on some furniture. He did not lose consciousness. He has had episodes of vomiting. He has been able to continue drinking water. He presented to the Emergency Room where he was found to be dehydrated with a low potassium and markedly elevated hemoglobin. His hemoglobin when he saw his cancer doctor last week was either a 7+ or an 8+ and today in the Emergency Room, his hemoglobin is markedly elevated to 9.7. His magnesium was low at 1.7 and his potassium low at 3.4. PHYSICAL EXAMINATION: His oropharynx is very dry. On further questioning, the patient reveals significant medication changes that took place within a few days of each other. His insurance company refused to cover pantoprazole 40 mg twice daily and he was forced (due to the expense of the pantoprazole) to cut out his evening dose of the 40 mg twice a day that he had been on for some time. His community case manager started him on duloxetine 30 mg once daily. He thought it was for swelling in his feet. DICTATION ENDS HERE. ��������������������������������������������� ���������������������������������������� By: ��������������������������������������������� 0103 [id number] Emmanuel Carreon MD /nt
[~2018-07-09 11:36] MED LIST changes: +AMLODIPINE BESY10 MG PO; +ENOXAPARIN150 MG/11 SUBQ; +LISINOPRIL20 MG PO; +METOCLOPRAM5 MG/1 ML IV PUSH; +MIRALAX17 GM PO; +NOVOLOG100 UNIT/1 SUBQ; +ONDANSETRON HCL4 M1 IV PUSH; +[UNRECOGNIZED DRUG - CODE] IV
[2018-07-09 11:37] VITALS: BP 131/84
[2018-07-09 12:10] LABS: HEMOGLOBIN 9.7 gm/dL (14.0-18.0); MCHC 31.6 g/dL (28.0-37.0); PLATELET COUNT 267 thou/uL (150-400); WBC 4.5 thou/uL (4.0-11.0)
[2018-07-09 12:12] LABS: HEMATOCRIT 30.6 % (42.0-52.0); MCH 23.5 pg (26.0-34.0); MCV 74.3 fL (80.0-100.0); RBC 4.12 mil/uL (4.50-6.00); RDW 16.4 % (10.5-14.5)
--- NOTE | 2018-07-09 12:17 | EKG ---
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1950 Requested By: Ambrose Hilton Order Number: [id number] MD: Matt Daniels Measurements Intervals Remer Rate: 100 P: 5 ND: 147 QRS: -8 QRSD: 86 T: 55 QT: 347 QTc: 448 Interpretive Statements Sinus tachycardia Ventricular premature complex Borderline low voltage, extremity leads Baseline wander in lead(s) V2,V4 Compared to ECG 09/22/2017 13:11:01 Ventricular premature complex(es) now present Electronically Signed On 07-09-2018 12:17:37 PMO MANAGER by Matt Daniels [email or web address] ��������������������������������������������� <ELECTRONICALLY SIGNED> ���������������������������������������� By: Matt Daniels MD ��������������������������������������������� 07/09/18 1217 1150 49 Matt Daniels MD /EPI
[2018-07-09 12:18] LABS: ANION GAP 4 mmol/L (7-16); BUN 15 mg/dL (7-18); CALCIUM 8.5 mg/dL (8.5-10.1); CHLORIDE 103 mmol/L (98-107); CO2 30 mmol/L (21-32); CREATININE 1.3 mg/dL (0.7-1.3); GLUCOSE 175 mg/dL (74-106); POTASSIUM 3.4 mmol/L (3.5-5.1); SODIUM 137 mmol/L (136-145)
[2018-07-09 12:21] LABS: INR 1.1; PROTIME 11.6 Seconds (9.3-11.4)
[2018-07-09 12:26] LABS: ALBUMIN 1.8 g/dL (3.4-5.0); LIPASE 95 U/L (73-393); SGOT 34 U/L (15-37); SGPT 40 U/L (30-65); TOTAL BILIRUBIN 0.4 mg/dL (<0.1-1.0); TOTAL PROTEIN 5.8 g/dL (6.4-8.2); TROPONIN-I <0.06 ng/mL (<0.06)
[2018-07-09 13:13] LABS: ABSOLUTE NEUTROPHILS 2.6 thou/uL (1.4-8.2); ANISOCYTOSIS 1+; ATYPICAL LYMPHS 5 %
[2018-07-09 13:14] LABS: MICROCYTES SLIGHT; OVALOCYTES OCCASIONAL; POIKILOCYTOSIS SLIGHT; TARGET CELLS FEW
[2018-07-09] MEDS ORDERED: PROTONIX40 M1 PO (13:50)
[2018-07-09 14:10] LABS: URINE BILIRUBIN NEGATIVE (Negative); URINE BLOOD 1+ (Negative); URINE CLARITY CLEAR; URINE COLOR YELLOW; URINE GLUCOSE-RANDOM* TRACE (Negative); URINE KETONES NEGATIVE (Negative); URINE LEUKOCYTES-REFLEX NEGATIVE (Negative); URINE NITRITE-REFLEX NEGATIVE (Negative); URINE PROTEIN (DIPSTICK) NEGATIVE (Negative); URINE SPECIFIC GRAVITY 1.015 (1.005-1.035)
[2018-07-09 14:21] LABS: BACTERIA-REFLEX None Seen /HPF (None Seen); CASTS None Seen /LPF (None Seen); CRYSTALS None Seen /LPF (None Seen); SQUAMOUS 0-3 Few /LPF (0-3); URINE RBC 3-10 Few /HPF (0-2); URINE WBC-REFLEX None Seen /HPF (0-5)
[2018-07-09 17:24] VITALS: BP 133/72
[2018-07-09 19:16] VITALS: BP 131/70
[2018-07-09 21:12] VITALS: BP 125/65
[2018-07-09] MEDS ORDERED: TYLENOL EXTRA500 MG PO (23:35)
[2018-07-10] VITALS: BP 115/60
[2018-07-10] MEDS ORDERED: ELIQUIS5 MG PO (00:20)
--- NOTE | 2018-07-10 00:47 | NUR ---
ADMITTED PATIENT TO FLOOR FROM ER AT 1940 PER CART. ADMISSION PROCESS COMPLETED. PATIENT RESTING QUIETLY WITHOUT PRESENT COMPLAINTS OF NAUSEA OR PAIN. FAMILY GONE HOME. ORIENTED TO ROOM AND FLOOR POLICIES. VOICED UNDERSTANDING. FALL PRECAUTIONS IN PLACE. CONTINUE TO ASSES CLOESLY.
[2018-07-10 02:24] VITALS: BP 115/60
--- NOTE | 2018-07-10 02:35 | NUR ---
SLEEPING WITHOUT COMPLAINTS. USING URINAL AT BEDSIDE. WORKING ON GOALS AND PLAN OF CARE FOR NOC. NOT PROGRESSING AT THIS TIME TOWARDS DISCHARGE GOALS. CONTINUE TO ASSES.
[2018-07-10 04:23] VITALS: BP 131/75
[2018-07-10 06:22] LABS: HEMATOCRIT 26.8 % (42.0-52.0); HEMOGLOBIN 8.6 gm/dL (14.0-18.0); MCH 24.1 pg (26.0-34.0); MCHC 32.3 g/dL (28.0-37.0); MCV 74.4 fL (80.0-100.0); RBC 3.59 mil/uL (4.50-6.00); RDW 16.4 % (10.5-14.5); WBC 3.9 thou/uL (4.0-11.0)
[2018-07-10 06:31] LABS: ALBUMIN 1.5 g/dL (3.4-5.0); CALCIUM 7.9 mg/dL (8.5-10.1); CREATININE 1.1 mg/dL (0.7-1.3); MAGNESIUM 1.7 mg/dL (1.8-2.4); POTASSIUM 3.4 mmol/L (3.5-5.1); TOTAL BILIRUBIN 0.4 mg/dL (<0.1-1.0)
[2018-07-10 07:30] VITALS: BP 137/65
--- NOTE | 2018-07-10 11:33 | NUR ---
TOWARDS POC PT A/O X4, VSS, AFEBRILE, DENIES PAIN. NO EPISODES OF NV, NO BM AT THIS MOMENT, PRN MEDS GIVEN. NO CONCERNS VOICED, WILL CONTINUE TO MONITOR.
[2018-07-10 14:54] VITALS: BP 144/83
[2018-07-10 19:35] VITALS: BP 141/82
--- NOTE | 2018-07-11 01:04 | NUR ---
patient aox4 makes needs known. pain controlled this shift.patient had bowel movement this shift. patient denied nausea, weakness or vomit this shift. patient ambulates to the bathroom with steady gaits. patient needs minimum assistance with adl, bed mobility, transfer and toileting. patient in bed asleep at this time breathing regular and unlaoured.
[2018-07-11 03:15] VITALS: BP 155/83
[2018-07-11 06:09] LABS: HEMATOCRIT 26.4 % (42.0-52.0); HEMOGLOBIN 8.5 gm/dL (14.0-18.0); MCHC 32.3 g/dL (28.0-37.0); MCV 74.3 fL (80.0-100.0); RBC 3.55 mil/uL (4.50-6.00); RDW 16.6 % (10.5-14.5)
[2018-07-11 06:10] LABS: CALCIUM 7.9 mg/dL (8.5-10.1); CREATININE 1.1 mg/dL (0.7-1.3); MAGNESIUM 1.9 mg/dL (1.8-2.4); POTASSIUM 3.7 mmol/L (3.5-5.1)
[2018-07-11 06:13] LABS: % SATURATION 40 % (20-39); IRON 48 ug/dL (65-175); TIBC 119 ug/dL (250-450)
[2018-07-11 06:41] LABS: FOLIC ACID 19.6 ng/mL (8.6-58.9)
[2018-07-11 07:38] VITALS: BP 187/92
--- NOTE | 2018-07-11 08:30 | NUR ---
ASSUMED CARE OF PT AT 0700. ASSESSMENT COMPLETED. A&O,X4. DENIES PAIN OR CONCERNS AT THIS TIME. ROOM AIR, NO SOA. SR ON VETERINARY MEDICAL OFFICER. LAST BOWEL MOVEMENT LAST NIGHT. RIGHT CHEST PORT IN PLACE, FLUIDS INFUSING. ACHS, NO INSULIN COVERAGE NEEDED THIS AM. PLAN FOR GASTRIC PROCEDURE TOMORROW. WILL CONTINUE TO MONITOR.
[2018-07-11 14:15] VITALS: BP 133/87
--- NOTE | 2018-07-11 18:01 | NUR ---
HGB 48, NEW ORDERS FOR IRON INFUSION. DR. VIEYRA AT BEDSIDE THIS EVENING. ONE LARGE LOOSE BOWEL MOVEMENT NOTED. NO OTHER CHANGE IN STATUS. VSS.
[2018-07-11 19:24] VITALS: BP 142/79
--- NOTE | 2018-07-12 01:21 | NUR ---
PATIENT C/O HEADACHE AND STOMACH BLOATING. TYLENOL GIVEN PER DR. MILLS. PATIENT REQUESTED MALOOX. CALLED AND ODER GIVEN. PATIENT HAS BEEN NPO SINCE MIDNIGHT FOR GASTRIC EMPTYING. DRESSING ON LEFT ABD C/D/I. PATIENT USES A URINAL AT NIGHT. PATIENT AMBULATES WITH STABLE TO THE BATHROOM. PATIENT IN BED ASLEEP NO S/S OF PAIN OR DISCOMFORT. PATIENT IN BED ASLEEP AT THIS TIME BREATHING REGULAR AND UNLABOURED.
[2018-07-12 03:11] VITALS: BP 157/84
[2018-07-12 07:41] LABS: HEMOGLOBIN 8.4 gm/dL (14.0-18.0); MCH 24.3 pg (26.0-34.0); MCHC 32.5 g/dL (28.0-37.0); MCV 74.6 fL (80.0-100.0); RBC 3.48 mil/uL (4.50-6.00); RDW 16.6 % (10.5-14.5); WBC 4.4 thou/uL (4.0-11.0)
[2018-07-12 07:45] VITALS: BP 145/74
[2018-07-12 07:52] LABS: CALCIUM 8.2 mg/dL (8.5-10.1); CREATININE 1.1 mg/dL (0.7-1.3); MAGNESIUM 1.9 mg/dL (1.8-2.4); POTASSIUM 3.9 mmol/L (3.5-5.1)
--- NOTE | 2018-07-12 13:34 | NUR ---
ORDERS RECEIVED FOR EVAL AND TREAT. SPOKE WITH Pt WHO STATES HE IS HAVING NO PROBLEMS WITH HIS STRENGTH OR MOBILITY. HAS BEEN UP ALREADY WITHOUT DIFFICULTY. DECLINING FORMAL P.T. EVAL. FAMILY MEMBER IN ROOM CONFIRMS Pt IS HAVING NO PROBLEMS WITH HIS MOBILITY AND HOPEFULLY HOME TOMORROW
--- NOTE | 2018-07-12 13:41 | NUR ---
PT ADMITTED RELATED TO NAUSEA AND WEAKNESS. CM REVIEWED CHART AND SPOKE WITH CARE TEAM. CM MET WITH PT AND SPOUSE AT BEDSIDE THIS DAY. PT IS A&O X4. CM ROLE INTRODUCED. PT INDICATED HHE LIVES IN A HOUSE WITH HIS WITH 12 STEPS TO ENTER AND NO STEPS INSIDE. 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 PT INDICATED HE HAD HH IN THE PAST BUT CAN'T RECALL PROVIDER. PT PLANS TO RETURN HOME ONCE MEDICALLY STABLE. CM TO FOLLOW INDICATED WITH DC PLANNING.
[2018-07-12 14:30] VITALS: BP 157/85
--- NOTE | 2018-07-12 15:23 | NUR ---
ASSUMED CARE AT 0700. ALERT X4, DENIES PAIN. GASTRIC EMPTY TEST COMPLETED TODAY. RESUMED DIET. EGD PLANNED FOR TOMORROW. NPO TONIGHT MIDNIGHT. SINUS TACH WITH AMBULATION. UP AB YUKI. CALLS APPROPRIATLEY. CALL LIGHT IN REACH. CONTINUE TO MONITOR.
[2018-07-12 20:05] VITALS: BP 137/72
[2018-07-13 04:05] VITALS: BP 141/82
--- NOTE | 2018-07-13 07:24 | NUR ---
Pt. slept fair during the night. Intermittent abdominal pain and nausea. Has scheduled pain med and nausea med. Did not require prn. Kept NPO since MN for EGD today. Consent signed and has no questions. Uses urinal. Up with supervision / SBA. Bed alarm on for safety. Will continue to monitor.
[2018-07-13 07:25] VITALS: BP 146/86
[2018-07-13 13:24] VITALS: BP 170/94
[2018-07-13 16:00] VITALS: BP 151/89
--- NOTE | 2018-07-13 16:42 | NUR ---
PT A&OX4, VSS, WITH NO C/O PAIN. NO SIGNS OF DISTRESS, NO N/V/D NOTED. PT HAD EGD EARLIER TODAY AND HAS REMAINED STABLE ORDER PLACED FOR ANTIHYPERTENSIVE MEDICATION AND PT HAS TAKEN. WILL CONTINUE TO MONITOR.
[2018-07-13 19:27] VITALS: BP 135/70
--- NOTE | 2018-07-14 04:49 | NUR ---
Pt. rested quietly at intervals during the night when checked on during frequent rounds. He was given mylanta (see emar) for c/o a upset stomach with some relief. No c/o shortness of air.
[2018-07-14 05:40] VITALS: BP 130/63
[2018-07-14 07:41] VITALS: BP 129/71
[2018-07-14 08:08] LABS: HEMATOCRIT 25.6 % (42.0-52.0); HEMOGLOBIN 8.3 gm/dL (14.0-18.0); MCH 24.1 pg (26.0-34.0); MCHC 32.4 g/dL (28.0-37.0); MCV 74.2 fL (80.0-100.0); RBC 3.45 mil/uL (4.50-6.00); RDW 16.3 % (10.5-14.5); WBC 4.4 thou/uL (4.0-11.0)
[2018-07-14 08:25] LABS: CALCIUM 8.3 mg/dL (8.5-10.1); CREATININE 1.1 mg/dL (0.7-1.3); MAGNESIUM 1.7 mg/dL (1.8-2.4); POTASSIUM 3.7 mmol/L (3.5-5.1)
[2018-07-14] MEDS ORDERED: OXYCODONE HCL10 MG PO (12:51)
[2018-07-14 14:48] VITALS: BP 133/64
--- NOTE | 2018-07-14 17:01 | NUR ---
CARE TEAM INDICATED THAT PT WILL LIKELY DISCHARGE HOME THIS DAY. IT IS ANTICPATED THAT PT WILL NOT HAVE ANY NEEDS UPON DISHCARGE. SHOULD ANY DC NEEDS ARISE CM IS ABLE TO ASSIST.
[2018-07-14] MEDS ORDERED: NEURONTIN 300300 M1 PO (17:42)
[2018-07-14] MEDS ORDERED: AMLODIPINE-BEN1 EACH PO (17:42)
[2018-07-14] MEDS ORDERED: COLACE 100 MG100 MG PO (17:42)
[2018-07-14] MEDS ORDERED: ONDANSETRON HCL4 M2 PO (17:42)
[2018-07-14] MEDS ORDERED: PROTONIX40 M1 PO (17:42)
[2018-07-14] MEDS ORDERED: CARAFATE 11 GM/10 M1 PO (17:47)
[2018-07-14 18:01] VITALS: BP 133/64
--- NOTE | 2018-07-14 19:46 | NUR ---
Assumed pt care this am, no complaints of nausea and vomiting. Pt requested for mylanta for discomfor through out the day. Pt on blood sugar checks no insulion was required. DC orders given by Dr. Carreon, instructions and scripts given. Heparin flush done for chest port and needle removed. Pt is no dc and went hopme with his .
--- NOTE | 2018-07-15 12:08 | PATH ---
Formerly [facility] [address] [address] PATHOLOGY RPT PROCEDURE Name: ALFREDO MOSS Room #: 453-P DIS IN M.R.#: [id number] ������������������ Admission: 07/09/18 ������������������ Date of : 46 Discharge: 07/14/18 Report #: [id number] Path Case #: [id number] [facility] Accession Number: [id number] . 01 Material submitted: . PART A: JEJUNUM BIOPSY R/O CELIAC PART B: GASTRITIS BIOPSY R/O H. PYLORI . 01 Clinical history: . Pre-OP DX: Nausea and vomiting Post-OP DX: Gastritis . 02 Diagnosis: A. Small bowel mucosa, jejunum rule out celiac, endoscopic biopsy: - No significant diagnostic abnormalities present. - Negative for villous blunting or increase in intraepithelial lymphocytes. . B. Gastric mucosa, gastritis rule out H. pylori, endoscopic biopsy: - Mild active gastritis along with features of reactive gastropathy. - Negative for intestinal metaplasia or atrophy. - Negative for Helicobacter pylori (properly controlled immunohistochemical stain performed). . 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 02 Electronically signed: . Maude Gray MD, Pathologist NPI- [id number] . 01 Gross description: . A. Received in formalin labeled "Alfredo Moss, jejunum BX, rule out celiac," are multiple segments of moralez soft tissue measuring 0.6 x 0.4 x 0.1 cm in aggregate dimensions. The specimen is filtered and entirely submitted in cassette A1. . B. Received in formalin labeled "Alfredo Moss, gastritis, rule out H. pylori," are multiple segments of moralez soft tissue measuring 0.6 x 0.4 x 0.1 cm in aggregate dimensions. The specimen is filtered and entirely submitted in cassette B1. (TSD; 07/13/2018) TOB/TOB . 02 Pathologist provided ICD-10: K29.70, K31.9, R11.2 . 02 [place] [address] PATHOLOGY RPT PROCEDURE Name: ALFREDO MOSS W Room #: 453-P DIS IN M.R.#: [id number] ������������������ Admission: 07/09/18 ������������������ Date of : 46 Discharge: 07/14/18 Report #: [id number] Path Case #: [id number] [facility] . [id number], [id number], [id number] Specimen Comment: A courtesy copy of this report has been sent to Specimen Comment: [phone], . Specimen Comment: Report sent to / DR BARKER Specimen Comment: A duplicate report has been generated due to demographic updates. Performed at: [address], [place] [id number] MD Mike Cordon MD Phone: [phone] Performed at: [address] [id number] MD Maude Gray MD Phone: [phone]
== END 2018-07-14 19:51 | disposition home or self-care (01) | DRG 391 ==
LOC: ER 11:36 → 4W 14:47 → EROBS 14:47 → 4W 20:32 → ENTRNSPT 07-14 19:19 → 4W 07-14 19:51
PROVIDERS: Internal Medicine; Physician Assistant; ADMIT Internal Medicine
PROC: 0DB68ZX Excision of Stomach, Via Natural or Artificial Opening Endoscopic, Diagnostic (ICD-10-PCS; principal; 2018-07-13)
DX: K29.70 Gastritis, unspecified, without bleeding (principal); E43 Unspecified severe protein-calorie malnutrition; E83.42 Hypomagnesemia; E87.6 Hypokalemia; K21.9 Gastro-esophageal reflux disease without esophagitis; I10 Essential (primary) hypertension; E86.9 Volume depletion, unspecified; D50.9 Iron deficiency anemia, unspecified; K59.00 Constipation, unspecified; E78.5 Hyperlipidemia, unspecified; G47.33 Obstructive sleep apnea (adult) (pediatric); E66.01 Morbid (severe) obesity due to excess calories; E86.0 Dehydration; K29.80 Duodenitis without bleeding; E11.43 Type 2 diabetes mellitus with diabetic autonomic (poly)neuropathy; K31.84 Gastroparesis; R26.9 Unspecified abnormalities of gait and mobility; W01.190A Fall on same level from slipping, tripping and stumbling with subsequent striking against furniture, initial encounter; Y93.89 Activity, other specified; Y92.89 Other specified places as the place of occurrence of the external cause; Y99.8 Other external cause status; Z86.718 Personal history of other venous thrombosis and embolism; Z85.07 Personal history of malignant neoplasm of pancreas; Z90.49 Acquired absence of other specified parts of digestive tract; Z92.21 Personal history of antineoplastic chemotherapy; Z68.28 Body mass index [BMI] 28.0-28.9, adult; Z86.711 Personal history of pulmonary embolism; Z87.11 Personal history of peptic ulcer disease; Z79.4 Long term (current) use of insulin; Z79.899 Other long term (current) drug therapy
CPT/HCPCS: 10045; 62110; 62900; 70005

== ENCOUNTER 2018-07-26 16:08 | Inpatient (IN) | payer OTHER ==
[~2018-07-26] VITALS: Ht 180.3 cm; Wt 113.9 kg
--- NOTE | ~2018-07-26 | H ---
[facility] [place] [address] HISTORY AND PHYSICAL Name: CHRISTOPHER OLIVER Elliott Room #: 219-P [facility] IN ..#: [id number] Admission: 07/26/18 ������������������ Attend Phys: Emmanuel Carreon MD Discharge: ������������������ Date of : 46 Report #: [id number] THIS REPORT FOR: //name// CC: Emmanuel Carreon DATE OF SERVICE: 07/26/2018 CHIEF COMPLAINT: New lesion on head CT scan, persistent abdominal pain, nausea, volume depletion and syncope. HISTORY OF PRESENT ILLNESS: The patient is accompanied by his who gives helpful history. Yesterday while taking a shower, he passed out. He does not think he hit his head. He had a similar blackout spell the day before coming to the hospital, 07/09/2018. 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 The cranberry grower noticed that his eyes were widely dilated and was worried that there might be something serious going on. He was referred to the Emergency Room where CT scan showed a low density area, right frontal deep white matter lateral to the anterior right lateral ventricle consistent with a developing infarct. This was not present on the previous CT head from 07/09/2018. In addition to this lesion, he continues to have abdominal pain and nausea and vomiting. 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 This responded favorably to 1 g of sucralfate before meals and at bedtime; however, over the last week or so, his abdominal pain has returned, and he called the office today asking for his prescription to be increased from 1 g dose to 2 g dose. His dictated summary as details of the 07/09/2018 to 07/14/2018 admission: Bile reflux gastritis was felt to be the source of his symptoms. He had profound volume depletion, hypokalemia, hypomagnesemia, persistent anemia with low serum iron and normal folate and B12, thickened duodenal fold seen on CT scan, appeared normal on EGD and multiple biopsies were normal except gastric mucosa that showed mild active gastritis with reactive gastropathy. He had severe malnutrition. He has [facility]. He had type 2 diabetes requiring only low doses of insulin. CT of his head was unremarkable then. Nonspecific dizziness was felt to be related to his multiple medical problems. Hypertension, hyperlipidemia; history of DVT of the left calf, was now completely resolved. He has obstructive sleep apnea, chronic abdominal pain requiring oxycodone and other medical problems as in the body of the history and physical. MEDICATIONS AT THE TIME OF DISCHARGE: He is to set his pantoprazole aside since he no longer makes acid after his Whipple procedure. He is to continue with oxycodone 10, ondansetron 4 or 8 mg, gabapentin 600 mg, Tylenol and 2 stool softeners at bedtime. His morning regimen of tramadol and MiraLax is to be continued, amlodipine 10/benazepril 20 mg 1 daily, Eliquis 5 mg twice daily. [facility] [address] [place] [address] HISTORY AND PHYSICAL Name: CHRISTOPHER OLIVER Room #: 219-P ADM IN M.R.#: [id number] Admission: 07/26/18 ������������������ Attend Phys: Emmanuel Carreon MD Discharge: ������������������ Date of : 46 Report #: [id number] Sliding scale insulin as he has used before. He is to postpone oral iron replacement until his abdominal pain and symptoms have responded to treatment. Oral magnesium might be needed. PHYSICAL EXAMINATION: GENERAL: Shows an elderly male in his Emergency Room bed and he appears mildly uncomfortable. HEENT: Unremarkable except for the dry oral mucosa. NECK: Negative. LUNGS: Clear. CARDIOVASCULAR: The heart tones are normal and regular. ABDOMEN: Soft with mild epigastric tenderness. EXTREMITIES: There is no significant pedal edema. NEUROLOGIC: There are no focal neurological deficits. Electrocardiogram shows atrial fibrillation with ventricular rate varying from 82-91. LABORATORY DATA: His potassium is again low at 3.3, creatinine is down to 1.3, glucose is 228. Troponin is negative. WBCs are 3.8 thousand. Hemoglobin is 8.3. Chest x-ray is unremarkable. Three views of left knee shows joint space narrowing with a small effusion and chronic vascular calcifications with chronic knee joint space narrowing involving the patellofemoral joint. CT of the head shows an interval development of a low density area in the right frontal deep white matter laterally to the anterior right lateral ventricle consistent with a developing infarct measuring 13.9 mm. ASSESSMENT: 1. Persistent abdominal pain and discomfort -- diagnosed on 07/09/2018 as bile reflux gastritis. 2. New right frontal lesion on noncontrast CT scan that may represent a subcortical acute stroke. 3. Pancreatic cancer treated with a Whipple last fall with failure to thrive this spring. 4. Pancreatic cancer -- chemotherapy has been held May, June and up until now in July because of abdominal pain, nausea and poor performance status. 5. Other medical problems as in the history and physical. PLAN: The patient is admitted and given intravenous fluid replacement. He will be seen in neurology consultation after an MRI of his brain is obtained in the morning. He will be seen in Gastroenterology consultation for his persistent abdominal distress. His usual home medications will be continued, and his Carafate slowly will be increased from 1 g to 2 g 4 times daily. [facility] [address] [place] [address] HISTORY AND PHYSICAL Name: CHRISTOPHER OLIVER Elliott Room #: 219-P ADM IN .R.#: [id number] Admission: 07/26/18 ������������������ Attend Phys: Emmanuel Carreon MD Discharge: ������������������ Date of : 46 Report #: [id number] Marques Addison to obtain the information as to why his chemotherapy has been held since May. Also, information as to why his hemoglobin is still low given the fact that he has not been getting chemotherapy. He will be seen in Gastroenterology consultation regarding the abdominal pain. ��������������������������������������������� ���������������������������������������� By: ��������������������������������������������� 0134 0250 Emmanuel Carreon MD /nt
[~2018-07-26 16:08] MED LIST changes: +AMLODIPINE-BEN1 EACH PO; +CARAFATE 11 GM/10 M1 PO; +COLACE 100 MG100 MG PO; +NEURONTIN 300300 M1 PO; +ONDANSETRON HCL4 M2 PO; +OXYCODONE HCL10 MG PO; +TYLENOL EXTRA500 MG PO
[2018-07-26 16:10] VITALS: BP 126/72
--- NOTE | 2018-07-26 16:27 | NUR ---
FAMILY REPORTS THAT THE DECISION TO COME TO THE ER TODAY WAS R/T GOING TO THE EYE DR MARISSA SHEEHAN AND NOTED PUPILS DILATED
--- NOTE | 2018-07-26 17:16 | EKG ---
[place] [address] [facility] [place] [address] ELECTROCARDIOGRAM REPORT Name: BENITOCHRISTOPHER [id number] ������������������ Admission: 07/26/18 ������������������ Attend Phys: Discharge: ������������������ Date of : 46 Report #: [id number] ����������������������������������������������������������������� [id number] THIS REPORT FOR: //name// [facility] ED Test Date: 2018-07-26 Test Time: 16:44:03 Pat Name: CHRISTOPHER OLIVER Department: Room: Gender: Diffusion Operator: RAULNatanael : 1950 Requested By: Chuck Tucker Order Number: [id number] MD: Freddy Virk Measurements Intervals Adrian Rate: 86 P: CO: QRS: 27 QRSD: 76 T: 54 QT: 379 QTc: 454 Interpretive Statements Baseline artifact limits interpretation Probable sinus rhythm Compared to ECG 07/09/2018 11:50:26 No significant change was found Electronically Signed On 07-26-2018 17:16:10 CDT by Freddy Virk [email or web address] ��������������������������������������������� <ELECTRONICALLY SIGNED> ���������������������������������������� By: Freddy Virk MD, [facility] ��������������������������������������������� 07/26/18 1716 1644 1644 Freddy Virk MD, FACC /EPI
[2018-07-26 17:25] LABS: BASOPHILS 0.4 % (0.0-2.0); EOSINOPHILS 1.4 % (0.0-3.0); HEMATOCRIT 25.6 % (42.0-52.0); HEMOGLOBIN 8.3 gm/dL (14.0-18.0); LYMPHOCYTES 34.3 % (24.0-44.0); MCH 23.8 pg (26.0-34.0); MCHC 32.4 g/dL (28.0-37.0); MCV 73.7 fL (80.0-100.0); MONOCYTES 11.6 % (1.0-8.0); PLATELET COUNT 208 thou/uL (150-400); POLYS 52.3 % (36.0-66.0); RBC 3.47 mil/uL (4.50-6.00); RDW 15.9 % (10.5-14.5); WBC 3.8 thou/uL (4.0-11.0)
[2018-07-26 17:33] LABS: ANION GAP 6 mmol/L (7-16); BUN 10 mg/dL (7-18); CALCIUM 7.3 mg/dL (8.5-10.1); CHLORIDE 107 mmol/L (98-107); CO2 27 mmol/L (21-32); CREATININE 1.3 mg/dL (0.7-1.3); GLUCOSE 325 mg/dL (74-106); POTASSIUM 3.3 mmol/L (3.5-5.1); SODIUM 140 mmol/L (136-145)
[2018-07-26 17:42] LABS: TROPONIN-I <0.06 ng/mL (<0.06)
[2018-07-26 20:02] VITALS: BP 141/75
[2018-07-26 20:23] VITALS: BP 126/67
[2018-07-26 20:41] VITALS: BP 134/66
[2018-07-27] VITALS (7 sets, daily range): BP systolic 126–153; BP diastolic 56–91
[2018-07-27 06:39] LABS: ABSOLUTE RETIC COUNT 0.0313 10^6/uL; HEMATOCRIT 24.1 % (42.0-52.0); HEMOGLOBIN 7.9 gm/dL (14.0-18.0); MCH 23.9 pg (26.0-34.0); MCHC 32.9 g/dL (28.0-37.0); MCV 72.9 fL (80.0-100.0); OBSERVED RETIC COUNT 0.95 % (0.6-2.6); PLATELET COUNT 189 thou/uL (150-400); RDW 15.7 % (10.5-14.5)
[2018-07-27 06:58] LABS: % SATURATION 46 % (20-39); ALBUMIN 1.2 g/dL (3.4-5.0); CALCIUM 7.2 mg/dL (8.5-10.1); CREATININE 1.1 mg/dL (0.7-1.3); IRON 47 ug/dL (65-175); MAGNESIUM 1.4 mg/dL (1.8-2.4); POTASSIUM 3.2 mmol/L (3.5-5.1); TIBC 103 ug/dL (250-450); TOTAL BILIRUBIN 0.2 mg/dL (<0.1-1.0); TOTAL PROTEIN 4.4 g/dL (6.4-8.2)
[2018-07-27 07:25] LABS: FOLIC ACID 19.3 ng/mL (8.6-58.9)
--- NOTE | 2018-07-27 07:38 | NUR ---
PT IS ADMITTED FORM THE ER AT 2230 WITH SYNCOPE. NO SIGN OF DISTRESS NOTED, PT IS ALERT AND ORIENTED, FAMILY AT BEDSIDE, MEDS ADMINISTERED TO PT. ADMISSION ASSESSMENT, AND EDUCATION COMPLETED, VITAL SIGNS STABLE. NO SIGN OF DISTRESS NOTED, PT IS ON ROOM AIR AND NSR ON THE HEART MONITOR. PORT-A-CATH ACCESSED IN THE ER, NO FURTHER NEEDS AT THIS TIME
[2018-07-27 08:10] LABS: ABSOLUTE NEUTROPHILS 1.7 thou/uL (1.4-8.2); ATYPICAL LYMPHS 1 %; HYPOCHROMASIA 1+
[2018-07-27 08:11] LABS: MICROCYTES 1+
[2018-07-27 10:40] LABS: CHOLESTEROL 84 mg/dL (<200); HDL CHOLESTEROL 34 mg/dL (>40); LDL CHOLESTEROL 43 mg/dL (<100); TC:HDL 2.5 Ratio (Not establshd); TRIGLYCERIDE 35 mg/dL (<150); VLDL 7 mg/dL (<40)
--- NOTE | 2018-07-27 12:23 | 2DMMODE ---
[facility] [place] [address] 2 D/M-MODE ECHOCARDIOGRAM Name: CHRISTOPHER OLIVER Room #: 219-P [facility] IN [facility]#: [id number] ������������� Admission: 07/26/18 ������������� Attend Phys: Emmanuel Carreon, Discharge: ��� ������������� ��� Date of : 46 Date of Service: 07/27/18 1223 �� Report #: [id number] �������� ��������������������������������������������[id number] THIS REPORT FOR: //name// APPROVED REPORT Study performed: 07/27/2018 10:48:36 EXAM: Comprehensive 2D, Doppler, and color-flow Echocardiogram Patient Location: Echo lab Room #: 219 Status: routine BSA: 2.14 HR: 78 bpm BP: 135/80 mmHg Rhythm: NSR/irregular Other Information Study Quality: Good Indications Emolic strokes, Afib. Hx: HTN, DM, HLP. Echo Enhancing Agent Indication: Rule out Shunt Agent(s) / Amount(s) Used: Agitated Saline 6 cc 2D Dimensions RVDd: 35.90 mm IVSd: 12.00 (7-11mm) LVOT Diam: 22.00 (18-24mm) LVDd: 47.00 mm PWd: 12.00 (7-11mm) Ascending Ao: 36.00 (22-36mm) LVDs: 34.00 (25-40mm) Aortic Root: 40.00 mm Volumes Left Atrial Volume (Systole) Single Plane 4CH: 53.03 mL Single Plane 2CH: 52.55 mL LA ESV Index: 27.00 mL/m2 Aortic Valve AoV Peak Gabriele.: 2.73 m/s AO Peak Gr.: 29.79 mmHg LVOT Max P.11 mmHg AO Mean Gr.: 18.57 mmHg AO V2 Mean: 2.06 m/s LVOT Max V: 1.24 m/s AO V2 VTI: 57.71 cm [facility] [place] [address] 2 D/M-MODE ECHOCARDIOGRAM Name: CHRISTOPHER OLIVER Room #: 219-P [facility] IN ..#: [id number] ������������� Admission: 07/26/18 ������������� Attend Phys: Emmanuel Carreon, Discharge: ��� ������������� ��� Date of : 46 Date of Service: 07/27/18 1223 �� Report #: [id number] �������� ��������������������������������������������[id number] DANGELO Vmax: 1.71 cm2 Mitral Valve E/A Ratio: 0.8 MV Decel. Time: 244.13 ms MV E Max Gabriele.: 0.82 m/s MV A Gabriele.: 0.97 m/s MV PHT: 70.80 ms IVRT: 79.58 ms Pulmonary Valve PV Peak Gabriele.: 0.77 m/s PV Peak Gr.: 2.40 mmHg Pulmonary Vein P Vein S: 0.64 m/s P Vein A: 0.36 m/s P Vein D: 0.28 m/s P Vein A Dur.: 90.0 msec P Vein S/D Ratio: 2.29 Tricuspid Valve TR Peak Gabriele.: 2.08 m/s RAP Estimate: 5.00 mmHg TR Peak Gr.: 17.27 mmHg PA Pressure: 22.00 mmHg Left Ventricle The left ventricle is normal size. There is normal LV segmental wall motion. Mild concentric left ventricular hypertrophy. Left ventricular systolic function is normal. LVEF is 55-60%. Mild diastolic dysfunction is present (impaired relaxation pattern). Right Ventricle The right ventricle is normal size. The right ventricular systolic function is normal. Atria The left atrium size is normal. No shunting with contrast bubble injection. The right atrium size is normal. Aortic Valve Aortic valve is moderately calcified. Mild aortic regurgitation. There is mild valvular aortic stenosis. Calculated aortic valve area is 1.7 cm2 with maximum pressure gradient of 30 mmHg and mean pressure gradient of 19 mmHg. Mitral Valve Mild mitral annular calcification. Trace mitral regurgitation. No [facility] [address] [place] [address] 2 D/M-MODE ECHOCARDIOGRAM Name: CHRISTOPHER OLIVER Room #: 219-P [facility] IN [facility].#: [id number] ������������� Admission: 07/26/18 ������������� Attend Phys: Emmanuel Carreon, Discharge: ��� ������������� ��� Date of : 46 Date of Service: 07/27/18 1223 �� Report #: [id number] �������� ��������������������������������������������[id number] evidence of mitral valve stenosis. Tricuspid Valve The tricuspid valve is normal in structure. Trace tricuspid regurgitation. Estimated PAP is 20-25mmHg. Pulmonic Valve The pulmonary valve is normal in structure. Trace pulmonic regurgitation. Great Vessels Aortic root is borderline dilated at 4.0cm. The ascending aorta is normal in size. IVC is normal in size and collapses >50% with inspiration. Pericardium There is no pericardial effusion. <Conclusion> Left ventricular systolic function is normal. There is normal LV segmental wall motion. LVEF is 55-60%. Mild diastolic dysfunction No shunting with contrast bubble injection. Aortic valve is moderately calcified. Mild stenosis and insufficiency Calculated aortic valve area is 1.7 cm2 with maximum pressure gradient of 30 mmHg and mean pressure gradient of 19 mmHg. Mild mitral annular calcification. Trace mitral regurgitation. Trace tricuspid regurgitation. Estimated pulmonary artery pressure of 20-25mmHg. There is no pericardial effusion. ��������������������������������������������� <ELECTRONICALLY SIGNED> ���������������������������������������� By: Freddy Virk MD, FACC ��������������������������������������������� 07/27/18 1223 1223 1223 Freddy Virk MD, FACC /INF
--- NOTE | 2018-07-27 14:41 | NUR ---
ORDERS RECEIVED FOR EVAL AND TREAT. PER IMAGING, Pt HAD ACUTE R INFARCT IN CORONARY PARIETAL PERIVENTRICULAR WHITE MATTER. SPOKE WITH Pt WHO STATED HE WAS NOT HAVING DIFFICULTY WITH MOBILITY AT THIS TIME. Pt ABLE TO DEMONSTRATE FOR PT THAT HE COULD WALK 200 FT WITHOUT AD SUPERVISION. INDEPENDENT WITH BED MOBILITY AND SIT<>STAND AT THIS TIME. Pt STATED HE WAS AWARE OF WHEN HE BECOMES LIGHTHEADED AND HAS BEEN TAKING RESTS BETWEEN TRANSITIONS TO PREVENT LIGHTHEADEDNESS WITH MOBILITY; Pt WAS ABLE TO DEMO THIS FOR PT. NO ACUTE PT NEEDS IDENTIFIED AT THIS TIME. ACUTE PT TO SIGN OFF. PER Pt, HE PLANS TO CONTINUE WITH HIS OP PT UPON D/C.
--- NOTE | 2018-07-27 15:53 | NUR ---
ASSUMED CARE OF PT AT 0700. PT A&OX4, UP WITH STANDBY DUE TO HISTORY OF FALLS. PT HAD MRI SHOWING POSITIVE FOR INFARCT. DR. BARKER NOTIFIED AND ORDERED CARDIOLOGY CONSULT, MRA, AND LOVENOX. DR. WHITE ROUNDED ON PT AND PUT IN ORDERS. DR. WHITE RECOMMENDED XARELTO INSTEAD OF LOVENOX. DR. WHITE PUT IN ORDERS FOR US CAROTIDS. WILL CONTINUE WITH POC.
--- NOTE | 2018-07-27 17:33 | NUR ---
PT ADMITTED RELATED TO SYNCOPE AND ABN CT OF THE HEAD. CM REVIEWED CHART AND SPOKE WITH CARE TEAM. CM HAD ASSESSED PT PREVIOUSLY. CM MET WITH PT AND SPOUSE AT BEDSIDE THIS DAY. PT IS A&O X4. CM ROLE INTRODUCED. PT DIDN'T ANSWER ASSESSMENT QUESTIONS PT'S SPOUSE DID. SHE INDICATED THEY LIVE IN A HOUSE WITH 8-12 STEPS TO ENTER AND NO STEPS INSIDE. 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 SPOUSE INDICATED THAT HE HAD HH IN THE PAST BUT CAN'T RECALL PROVIDER. PT PLANS TO RETURN HOME ONCE MEDICALLY STABLE. CM TO FOLLOW INDICATED WITH DC PLANNING. PT HAD BEEN UNDERGOING CHEMO TREATMENT BUT HAD STOPPED RECIEVING THEM IT SPECIALIST.
[2018-07-28 01:09] LABS: GLYCOHEMOGLOBIN (HGB A1C) 6.4 % (4.8-5.6)
[2018-07-28 05:04] VITALS: BP 142/91
--- NOTE | 2018-07-28 05:32 | NUR ---
ASSUMED PT CARE AT 1900 WITH NO SIGN OF DISTRESS NOTED. PT IS STABLE LAYING IN BED. PT IS COMPLIANING ABOUT CONSTIPATION. PT IS SEEN BY DR BARKER WHO ORDERS LACTULOSE. LABS ORDERS ON PATIENT. SCHEDULED MEDS ADMINISTERED TO PT. PT TOLERATED PO INTAKE. PT IS STABLE THROUGHOUT THE NIGHT. DENIES ANY FURTHER NEEDS AT THIS TIME.
[2018-07-28 07:07] LABS: CALCIUM 7.6 mg/dL (8.5-10.1); CREATININE 1.1 mg/dL (0.7-1.3); MAGNESIUM 1.7 mg/dL (1.8-2.4); POTASSIUM 3.6 mmol/L (3.5-5.1)
--- NOTE | 2018-07-28 08:14 | HC ---
[facility] [place] [address] CONSULTATION Name: CHRISTOPHER OLIVER Room #: 219-P [facility] IN ..#: [id number] Admission: 07/26/18 ������������������ Attend Phys: Emmanuel Carreon MD Discharge: ������������������ Date of : 48 Report #: [id number] THIS REPORT FOR: //name// CC: Surya Carreon MD REQUESTING PHYSICIAN: Emmanuel Carreon MD REASON FOR CONSULTATION: Pancreatic cancer. HISTORY OF PRESENT ILLNESS: The patient is a 67-year-old gentleman followed by my partner, Dr. Perez Crocker, who began having GI difficulties about a year ago, had an EUS 09/08/2017 with an FNA that showed adenocarcinoma. He received neoadjuvant FOLFIRINOX times 6 between 09/30/2017 and 12/15/2017. He underwent a Whipple by Dr. Landeros on 01/26/2018. The pathology found a 3.7 cm tumor with negative margins and none of 21 lymph nodes involved. This will be a stage 1B, T2 N0 M0 cancer. He then began adjuvant FOLFIRINOX on 01/07/2018 and I believe received 4 cycles, was held after cycle 10 because of poor performance status. His last CAT scan in the office in 06/01/2018 did not reveal any disease. The patient was in the hospital about 2 weeks ago for GI upset, had an EGD that found changes consistent with bile reflux gastritis, also received one dose of iron sucrose. The patient states that he is feeling better than he did last 2 weeks ago. He was admitted because he was at home in a shower and lost consciousness and fell. CT here shows a developing lesion. This may be infarct. MRI of his head is pending and Neurology consult is pending. Second part of the consult is related to anemia. The patient had a hemoglobin of around 11 or so about a year ago. MCV at that time was around in the low 70s. He has had repeat iron studies several times that were normal. Most recently, his iron panels were essentially not strongly suggestive of iron deficient. He did receive one dose of iron sucrose on about 07/09/2018. He has not had any improvement. B12 and folic acid were normal. Erythropoietin level is pending. Note that absolute retic count is around 31, which is very low for this degree of anemia. This suggests hypoproliferation. On the other hand, we need to be careful about administering erythropoietin agents in the adjuvant as this may increase cancer recurrence risk. PAST MEDICAL HISTORY: Notable for the stage 1B pancreatic cancer resected this past year. Currently, no sign of recurrent disease. Also, history of hypertension, diabetes type 2, also past DVT with small segmental PE, had been on Eliquis prior to this admission. Also, hypertension. SOCIAL HISTORY: The patient works for the [employer]. 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 MEDICATIONS: At this time currently include gabapentin 600 at bedtime, docusate 200 at bedtime, MiraLax 34 grams daily, sucralfate suspension 1 gram before meals and at bedtime, pantoprazole 40 daily, Tylenol p.r.n., Zofran p.r.n., insulin on a sliding scale, oxycodone 10 mg b.i.d. p.r.n., Note that at this time, his Eliquis has not been restarted nor his amlodipine. PHYSICAL EXAMINATION: GENERAL: The patient appears his stated age. VITAL SIGNS: Height is 5 feet 11 inches, 180.34 cm. Weight is 207.5 pounds or 94.12 kilograms. Blood pressure is 128/68 with O2 sat of 97%, respirations 18, pulse 92, afebrile at 98.0. HEENT: Face, the patient's face appears to be symmetrical. Speech and thought pattern appear to be normal. Oropharynx clear. LUNGS: Clear without wheezes or rhonchi. HEART: Regular rate. LYMPHATIC: No enlarged lymph nodes in the supraclavicular, cervical, axillary region. ABDOMEN: Slightly obese, nontender. EXTREMITIES: No clubbing, cyanosis. NEUROLOGIC: Generally, his neuro exam appears to be grossly normal. LABORATORY DATA: Notable for a BUN of 9, creatinine of 1.1. Transaminases normal. Total bilirubin 0.2, calcium 7.2. Recent transaminases normal. Total protein 4.4. Recent albumin 1.2 on this admit, iron of 47, TIBC 103, percent saturation 46. Coags last admit were normal. White count 4 today, hemoglobin 7.9, MCV 72.9, which again is essentially unchanged since the year in 06/2017, and MCHC 32.9. Note that thalassemia discriminant suggest this is most likely iron deficiency, platelets 189. Absolute retic count was 0.0313, immature reticulocyte fraction was 0.46. Folate was 19.3 normal, B12 553 normal. Erythropoietin level is pending. UA last admission was 1+ blood and 3-10 on micro. X-rays recently include MRI head is pending. Chest x-ray yesterday showed no evidence of acute processes. CT head done yesterday compared to 07/09/2018 showed development of a low density lesion of right frontal deep white matter, lateral to the anterior lateral ventricle consistent with developing infarct, region measures 13 x 9 mm. This was not seen previously. The patient had CAT scan of abdomen and pelvis on 07/09/2018 that showed diffuse fatty infiltration of the liver, mild circumferential duodenal wall thickening involving the first and second portion of duodenum. Note that it did show this inflammation or solid thickening could not represent infectious or inflammatory duodenitis. Of note, I am not sure, if they realize the patient had radiation therapy there in the past and they were comparing this to a year ago in 08/2017. They do not see any pathologic adenopathy. ASSESSMENT AND PLAN: [address] [address] CONSULTATION Name: CHRISTOPHER OLIVER Room #: 219-P [facility] IN .R.#: [id number] Admission: 07/26/18 ������������������ Attend Phys: Emmanuel Carreon MD Discharge: ������������������ Date of : 48 Report #: [id number] 1. History of stage IB pancreatic cancer from 09/08/2017. Status post neoadjuvant therapy, then Whipple, then adjuvant chemotherapy, held due to poor performance status. No sign of recurrent disease. I can speak for Dr. Crocker, but I doubt he plans to continue more chemotherapy because of minimal benefit and poor tolerance by the patient. 2. Anemia appears to be hypoproliferative, blood test would suggest that this is iron deficiency, but the patient has not benefited. We will await erythropoietin level, but will need to balance the danger of this drug versus the benefit. We also consider creatinine clearance. If EPO levels are appropriately low, do not see a reason for transfusion. 3. Bile acid reflux, gastritis. Continue Carafate. 4. Loss of consciousness and fall and abnormal CT head with possible developing infarct. Await MRI. We will then need to see whether, continued anticoagulation is appropriate. 5. History of small segmental PE and DVT in the past. Again, we will need to wait to see what the MRI head shows. 6. Diabetes type 2 per others. 7. Hypertension per others. 8. Protein-calorie malnutrition or prior at some point need to ask dietary to see the patient. ��������������������������������������������� <ELECTRONICALLY SIGNED> ���������������������������������������� By: Marques Addison MD ��������������������������������������������� 07/28/18 0814 0750 0916 Marques Addison MD /nt
[2018-07-28 09:10] VITALS: BP 138/84
--- NOTE | 2018-07-28 09:43 | HC ---
[facility] [address] [place] [address] CONSULTATION Name: OLIVERCHRISTOPHER Room #: 219-P [facility] IN .#: [id number] Admission: 07/26/18 ������������������ Attend Phys: Emmanuel Carreon MD Discharge: ������������������ Date of : 48 Report #: [id number] THIS REPORT FOR: //name// CC: Emmanuel Carreon HISTORY OF PRESENT ILLNESS: The patient is a 67-year-old male who yesterday had a syncopal episode while he was in the shower. The patient states that he has had syncopal episodes before. 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 He was sitting in a chair and realizes that it became inseamer the room and he passed out from that. EMS came to his assistance and apparently, orthostatic blood pressures were checked. The patient does not remember any of the numbers, but remembers being told that when he stood up, his blood pressure was low. The patient also has a history of stage 1b pancreatic cancer resected. This past year, the patient tried to complete chemotherapy, but did not tolerate it. The margins were clear and no lymph nodes were involved. The patient has a longstanding history of diabetes mellitus. He states that he does keep his blood sugar under control. However, on admission, his blood sugar was 325. I do not know if anything had been given to him en route or in the Emergency Room. Reviewing his lab work, I did see a hemoglobin A1c from 08/2017 and the hemoglobin A1c was 10.5. The patient also has a history of DVT and is currently on Eliquis. According to the nurse, he has not had any Eliquis since Thursday. PAST MEDICAL HISTORY: Hypertension, diabetes mellitus, pancreatic cancer, diabetic peripheral neuropathy, hyperlipidemia, iron deficiency anemia. PAST SURGICAL HISTORY: Whipple procedure, cholecystectomy. MEDICATIONS AT HOME: NovoLog insulin, MiraLax 34 grams daily, oxycodone 10 mg b.i.d. p.r.n. pain, Colace 200 mg at bedtime, ondansetron 8 mg p.r.n., pantoprazole 40 mg daily, amlodipine/benazepril 10/20 mg daily, gabapentin 600 mg at bedtime, Carafate 1 gram 4 times a day. ALLERGIES: None. VITAL SIGNS: Temperature 36.8, pulse rate 82, respiratory rate 16, blood pressure 135/86, bedside pulse oximetry 96% on room air. The patient's blood pressure on admission was 126/72. LABORATORY WORK: White blood cell count 4, hemoglobin 7.9, hematocrit 24.1, MCV 72.9, platelet count 189,000. Chemistry: Sodium 141, potassium 3.2, chloride 108, carbon dioxide 29, BUN 9, creatinine 1.1, GFR 80, glucose 138. On admission, the patient's glucose was 325, calcium 7.2, magnesium 1.4, iron 47, [address] [address] CONSULTATION Name: CHRISTOPHER OLIVER Room #: 219-P [facility] IN ..#: [id number] Admission: 07/26/18 ������������������ Attend Phys: Emmanuel Carreon MD Discharge: ������������������ Date of : 48 Report #: [id number] TIBC 103, iron saturation 46%. Liver functions normal with the exception of the AST, which is 38, total protein 4.4, albumin 1.2, amylase 35, lipase 95. B12 552. Folate 19.3. IMAGING: MRI of the head demonstrates a small recent infarct within the right centrum semiovale and in the right parietal subcortical matter. NEUROLOGIC: Cranial nerves 2-12 are grossly intact. Motor exam demonstrates symmetrical strength in all 4 extremities with tone and bulk normal. Plantar responses are flexor bilaterally. Coordination reveals intact soenem-ub-bsba. The patient has diminished light touch to midcalf bilaterally. IMPRESSION: This patient has had a stroke. This may be secondary to small vessel ischemic disease. He does have an MRA of the head ordered. The patient also has risk factors for stroke including hypertension, although it appears to be well controlled and diabetes. I have ordered a hemoglobin A1c. He has an echocardiogram ordered and I have ordered a carotid ultrasound and a lipid profile as well. I read through Dr. Carreon's note and he states the patient has a history of hyperlipidemia, although I do not see any cholesterol lowering medications on his list. The patient is currently on Eliquis, although he has not had a dose since Thursday according to the nurse. Perhaps a change to another medication such as Xarelto would be indicated. The patient probably has autonomic dysfunction. I have asked the nurse to check orthostatic blood pressures. His anemia does not help, but this is currently being worked up by Oncology. I have also asked physical therapy to come and see him to make sure he is safe to walk. The patient states that he had just gone to physical therapy the day of this event. I thank you for your kind referral of the patient and we will continue to follow him with you. ��������������������������������������������� <ELECTRONICALLY SIGNED> ���������������������������������������� By: Irene Barakat DO ��������������������������������������������� 07/28/18 0943 1043 1257 Irene Barakat DO /nt
[2018-07-28 12:10] VITALS: BP 147/85
[2018-07-28 16:43] VITALS: BP 145/79
[2018-07-28 18:59] VITALS: BP 139/79
--- NOTE | 2018-07-28 22:17 | NUR ---
ASSUMED CARE ABOUT 1000 WITH PATIENT ALERT AND ORIENTED. PATIENT CONTINUES WITH 24 HOUR URINE OUTPUT JUG. PATIENT DICTATES AMOUNT OF INSULIN HE REQUIRES FOR POC BLOOD SUGAR. NO STOOL OUTPUT TODAY DESPITE TAKING LACTULOSE. SPOUSE AT BEDSIDE.
[2018-07-29] VITALS (7 sets, daily range): BP systolic 103–153; BP diastolic 61–87
--- NOTE | 2018-07-29 05:58 | NUR ---
ASSUMED PT CARE AT 1900 WITH NO SIGN OF DISTRESS NOTED IN PT. PT IS ALERT AND ORIENTED WITH FAMILY AT BEDSIDE. PT IS STABLE WITH NO COMPLAINT STATED. SCHEDULED MEDS ADMINISTERED TO PT. VITAL SIGNS STABLE. DENIES ANY FURTHER NEEDS AT THIS TIME. CONTINUED NURSING POC.
[2018-07-29 06:48] LABS: HEMATOCRIT 25.6 % (42.0-52.0); HEMOGLOBIN 8.4 gm/dL (14.0-18.0); MCH 23.9 pg (26.0-34.0); MCHC 32.7 g/dL (28.0-37.0); MCV 73.2 fL (80.0-100.0); RBC 3.5 mil/uL (4.50-6.00); WBC 4.2 thou/uL (4.0-11.0)
[2018-07-29 06:59] LABS: CALCIUM 7.8 mg/dL (8.5-10.1); MAGNESIUM 1.7 mg/dL (1.8-2.4); POTASSIUM 3.9 mmol/L (3.5-5.1)
--- NOTE | 2018-07-29 20:46 | NUR ---
ASSUMED CARE AT 0700. PT A&OX4. PT ON ROOM AIR. PT HAD CT WITH ORAL CONTRAST THIS AM WHICH HE WAS NPO SINCE MIDNIGHT FOR. PT THEN RETURNED TO ROOM. PT TAKES INSULIN SS ACCORDING TO HIS HOME SS AND NOT THE L[facility] DOSE [facility]OS[facility] SS. PT GETS UP TO BATHROOM WITH 1 ASSIST. PT HAD TO BOWEL MOVEMENTS TODAY AFTER BEING GIVEN LACTULOSE PRIOR SHIFT. PT HAD NO BREATHING ISSUES THIS SHIFT AND REMAINED ABOVE 94% ON ROOM AIR.
[2018-07-30 00:38] VITALS: BP 129/83
[2018-07-30 05:22] VITALS: BP 151/91
[2018-07-30 06:55] LABS: ABSOLUTE NEUTROPHILS 1.7 thou/uL (1.4-8.2); BASOPHILS 0.8 % (0.0-2.0); EOSINOPHILS 2.5 % (0.0-3.0); HEMATOCRIT 29.3 % (42.0-52.0); HEMOGLOBIN 9.5 gm/dL (14.0-18.0); LYMPHOCYTES 43.6 % (24.0-44.0); MCH 23.8 pg (26.0-34.0); MCHC 32.6 g/dL (28.0-37.0); MCV 73.1 fL (80.0-100.0); MONOCYTES 9.5 % (1.0-8.0); PLATELET COUNT 220 thou/uL (150-400); POLYS 43.6 % (36.0-66.0); RBC 4.01 mil/uL (4.50-6.00); RDW 15.9 % (10.5-14.5); WBC 3.9 thou/uL (4.0-11.0)
[2018-07-30 07:05] LABS: CALCIUM 8.2 mg/dL (8.5-10.1); MAGNESIUM 1.8 mg/dL (1.8-2.4); POTASSIUM 4.1 mmol/L (3.5-5.1)
--- NOTE | 2018-07-30 07:39 | NUR ---
ASSUME CARE 1900. PT/VITALS STABLE. DENIES ANY PAIN. UP WITH ASSISTANCE TO BATHROOM. ASSESSMENT CHARTED. PROGRESSING WELL TO PLAN OF CARE. MAG/POTASSIUM AND IRON REPLACEMENT. ADEQUATE REST NOTED THROUGH THE NIGHT. SR ON MONITOR. ORTHOSTTIC PRESSURES Q SHIFT. WILL CONTINUE TO MONITOR AND FOLLOW WITH POC.
[2018-07-30 09:01] VITALS: BP 139/86; BP 145/82
[2018-07-30 09:02] VITALS: BP 121/72
[2018-07-30 09:03] VITALS: BP 139/86
[2018-07-30] MEDS ORDERED: LACTULOSE20 GM/30 M PO (10:02)
[2018-07-30] MEDS ORDERED: CARAFATE 11 GM/10 M1 PO (10:02)
[2018-07-30] MEDS ORDERED: COREG6.25 MG PO (10:02)
[2018-07-30] MEDS ORDERED: ASPIR 8181 MG PO (10:02)
[2018-07-30 11:50] VITALS: BP 139/86
--- NOTE | 2018-07-30 18:11 | NUR ---
ASSUMED CARE AT 0700, SHIFT ASSESSMENT DONE, MEDS GIVEN, VSS. DENIES ANY PAIN. DISCHARGE ORDERS RECEIVED. DISCHARGE PAPER WORKS AND SCRIPTS GIVEN. PORT-D-CATH WAS TAKEN OUT AFTER HEP LOCK FLUSH. PATIENT LEFT WITH [facility] TRANSPORT AT 1300
[2018-08-02 15:10] LABS: HGB SOLUBILITY Negative (Negative)
== END 2018-07-30 14:03 | disposition home or self-care (01) | DRG 64 ==
LOC: ER 16:08 → EROBS 18:52 → 2N 18:52 → ENTRNSPT 07-30 13:02 → EDTRNSPTSTS 07-30 13:05 → 2N 07-30 14:03
PROVIDERS: Emergency Medicine; Internal Medicine Gastroenterology; Psychiatry & Neurology Neurology; ADMIT Internal Medicine
DX: I63.9 Cerebral infarction, unspecified (principal); E43 Unspecified severe protein-calorie malnutrition; D61.9 Aplastic anemia, unspecified; E46 Unspecified protein-calorie malnutrition; C25.9 Malignant neoplasm of pancreas, unspecified; G90.8 Other disorders of autonomic nervous system; I95.1 Orthostatic hypotension; E11.40 Type 2 diabetes mellitus with diabetic neuropathy, unspecified; K59.00 Constipation, unspecified; E78.00 Pure hypercholesterolemia, unspecified; K29.70 Gastritis, unspecified, without bleeding; E78.70 Disorder of bile acid and cholesterol metabolism, unspecified; E78.5 Hyperlipidemia, unspecified; E11.42 Type 2 diabetes mellitus with diabetic polyneuropathy; R62.7 Adult failure to thrive; D50.9 Iron deficiency anemia, unspecified; G47.33 Obstructive sleep apnea (adult) (pediatric); I12.9 Hypertensive chronic kidney disease with stage 1 through stage 4 chronic kidney disease, or unspecified chronic kidney disease; G89.29 Other chronic pain; N18.9 Chronic kidney disease, unspecified; E11.22 Type 2 diabetes mellitus with diabetic chronic kidney disease; K27.9 Peptic ulcer, site unspecified, unspecified as acute or chronic, without hemorrhage or perforation; Z79.4 Long term (current) use of insulin; Z68.35 Body mass index [BMI] 35.0-35.9, adult; Z90.49 Acquired absence of other specified parts of digestive tract; Z86.718 Personal history of other venous thrombosis and embolism; Z86.711 Personal history of pulmonary embolism; Z87.891 Personal history of nicotine dependence; Z86.010 Personal history of colon polyps; Z79.899 Other long term (current) drug therapy
CPT/HCPCS: 10081

== ENCOUNTER 2018-08-19 10:47 | Emergency (ER) | payer OTHER ==
[~2018-08-19] VITALS: Ht 180.3 cm; Wt 98.4 kg
[~2018-08-19 10:47] MED LIST changes: +ASPIR 8181 MG PO; +COREG6.25 MG PO; +LACTULOSE20 GM/30 M PO
[2018-08-19 12:11] VITALS: BP 162/78
[2018-08-19] MEDS ORDERED: LASIX 40 MG TAB40 M2 PO (12:17)
== END 2018-08-19 12:42 | disposition home or self-care (01) ==
LOC: ER 10:47
DX: H02.843 Edema of right eye, unspecified eyelid (principal); R60.0 Localized edema; E11.40 Type 2 diabetes mellitus with diabetic neuropathy, unspecified; I10 Essential (primary) hypertension; E78.00 Pure hypercholesterolemia, unspecified; Z79.4 Long term (current) use of insulin

== ENCOUNTER 2018-09-08 14:19 | Emergency (ER) | payer OTHER ==
[~2018-09-08] VITALS: Ht 180.3 cm; Wt 102.1 kg
[~2018-09-08 14:19] MED LIST changes: +LASIX 40 MG TAB40 M2 PO
[2018-09-08 15:12] LABS: HEMATOCRIT 26.8 % (42.0-52.0); HEMOGLOBIN 8.9 gm/dL (14.0-18.0); MCH 23.8 pg (26.0-34.0); MCHC 33.1 g/dL (28.0-37.0); MCV 71.9 fL (80.0-100.0); PLATELET COUNT 198 thou/uL (150-400); RBC 3.73 mil/uL (4.50-6.00); RDW 15.6 % (10.5-14.5); WBC 3.5 thou/uL (4.0-11.0)
[2018-09-08 15:41] LABS: ALBUMIN 1.4 g/dL (3.4-5.0); CALCIUM 7.9 mg/dL (8.5-10.1); TOTAL BILIRUBIN 0.5 mg/dL (<0.1-1.0); TOTAL PROTEIN 4.9 g/dL (6.4-8.2)
[2018-09-08 15:42] LABS: POTASSIUM 2.8 mmol/L (3.5-5.1)
[2018-09-08 15:47] LABS: ABSOLUTE NEUTROPHILS 1.9 thou/uL (1.4-8.2)
[2018-09-08 15:48] LABS: HYPOCHROMASIA 1+; MICROCYTES 1+; TARGET CELLS 1+
[2018-09-08 16:29] LABS: URINE BILIRUBIN NEGATIVE (Negative); URINE BLOOD 1+ (Negative); URINE CLARITY CLEAR; URINE COLOR YELLOW; URINE GLUCOSE-RANDOM* NEGATIVE (Negative); URINE KETONES NEGATIVE (Negative); URINE LEUKOCYTES-REFLEX NEGATIVE (Negative); URINE NITRITE-REFLEX NEGATIVE (Negative); URINE PROTEIN (DIPSTICK) NEGATIVE (Negative); URINE SPECIFIC GRAVITY <= 1.005 (1.005-1.035); URINE UROBILINOGEN 0.2 E.U./dl (0.2-1.0)
[2018-09-08 16:38] LABS: BACTERIA-REFLEX 1-9 Few /HPF (None Seen); CASTS None Seen /LPF (None Seen); CRYSTALS None Seen /LPF (None Seen); SQUAMOUS None Seen /LPF (0-3); URINE RBC 0-2 Rare /HPF (0-2); URINE WBC-REFLEX None Seen /HPF (0-5)
[2018-09-08] MEDS ORDERED: OXYCODONE HCL 55 MG PO (18:01)
[2018-09-08 18:35] VITALS: BP 156/82
--- NOTE | 2018-09-09 07:11 | EKG ---
[place] [address] [facility] [place] [address] ELECTROCARDIOGRAM REPORT Name: CHRISTOPHER OLIVER 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 : 1950 Requested By: Padmini Heller Order Number: [id number] MD: Freddy Virk Measurements Intervals [place] Rate: 77 P: 8 LA: 154 QRS: -7 QRSD: 77 T: 24 QT: 434 QTc: 492 Interpretive Statements Sinus rhythm Borderline prolonged QT interval Compared to ECG 07/26/2018 16:44:03 No significant changes Electronically Signed On 09-09-2018 7:11:24 CDT by Freddy Virk [email or web address] ��������������������������������������������� <ELECTRONICALLY SIGNED> ���������������������������������������� By: Freddy Virk MD, [facility] ��������������������������������������������� 09/09/18 0711 1447 1447 Freddy Virk MD, FACC /EPI
== END 2018-09-08 18:52 | disposition home or self-care (01) ==
LOC: ER 14:19
PROVIDERS: Nurse Practitioner Family
DX: R10.12 Left upper quadrant pain (principal); R10.13 Epigastric pain; E87.6 Hypokalemia; E83.42 Hypomagnesemia; I10 Essential (primary) hypertension; E78.00 Pure hypercholesterolemia, unspecified; E11.42 Type 2 diabetes mellitus with diabetic polyneuropathy; Z85.07 Personal history of malignant neoplasm of pancreas

== ENCOUNTER 2018-10-14 16:07 | Emergency (ER) | payer OTHER ==
[~2018-10-14] VITALS: Ht 180.3 cm; Wt 99.8 kg
[~2018-10-14 16:07] MED LIST changes: +OXYCODONE HCL 55 MG PO
[2018-10-14 17:13] LABS: ABSOLUTE NEUTROPHILS 3.6 thou/uL (1.4-8.2); BASOPHILS 0.5 % (0.0-2.0); HEMATOCRIT 28.1 % (42.0-52.0); HEMOGLOBIN 9.3 gm/dL (14.0-18.0); LYMPHOCYTES 29.1 % (24.0-44.0); MCH 24.1 pg (26.0-34.0); MCV 72.9 fL (80.0-100.0); MONOCYTES 9.1 % (1.0-8.0); PLATELET COUNT 214 thou/uL (150-400); POLYS 60.3 % (36.0-66.0); RBC 3.86 mil/uL (4.50-6.00); WBC 5.9 thou/uL (4.0-11.0)
[2018-10-14 17:22] LABS: CALCIUM 7.9 mg/dL (8.5-10.1); CREATININE 1.1 mg/dL (0.7-1.3); POTASSIUM 3.3 mmol/L (3.5-5.1)
[2018-10-14 17:28] LABS: ALBUMIN 1.3 g/dL (3.4-5.0); TOTAL BILIRUBIN 0.4 mg/dL (<0.1-1.0); TOTAL PROTEIN 5.1 g/dL (6.4-8.2)
[2018-10-14 17:47] LABS: URINE BILIRUBIN NEGATIVE (Negative); URINE BLOOD NEGATIVE (Negative); URINE CLARITY CLEAR; URINE COLOR YELLOW; URINE GLUCOSE-RANDOM* TRACE (Negative); URINE KETONES NEGATIVE (Negative); URINE LEUKOCYTES-REFLEX NEGATIVE (Negative); URINE NITRITE-REFLEX NEGATIVE (Negative); URINE PROTEIN (DIPSTICK) TRACE (Negative); URINE SPECIFIC GRAVITY 1.015 (1.005-1.035)
[2018-10-14 19:59] VITALS: BP 160/73
== END 2018-10-14 20:00 | disposition home or self-care (01) ==
LOC: ER 16:07
PROVIDERS: Physician Assistant
DX: S70.01XA Contusion of right hip, initial encounter (principal); R07.81 Pleurodynia; E11.42 Type 2 diabetes mellitus with diabetic polyneuropathy; I10 Essential (primary) hypertension; E78.00 Pure hypercholesterolemia, unspecified; Z85.07 Personal history of malignant neoplasm of pancreas; Z79.4 Long term (current) use of insulin; W01.0XXA Fall on same level from slipping, tripping and stumbling without subsequent striking against object, initial encounter; Y93.89 Activity, other specified; Y92.512 Supermarket, store or market as the place of occurrence of the external cause; Y99.8 Other external cause status

== ENCOUNTER 2018-10-21 11:32 | Emergency (ER) | payer OTHER ==
[~2018-10-21] VITALS: Ht 180.3 cm; Wt 99.8 kg
[2018-10-21 13:33] LABS: ABSOLUTE NEUTROPHILS 2.8 thou/uL (1.4-8.2); BASOPHILS 0.4 % (0.0-2.0); EOSINOPHILS 0.4 % (0.0-3.0); HEMATOCRIT 29.2 % (42.0-52.0); HEMOGLOBIN 9.6 gm/dL (14.0-18.0); MCH 24.1 pg (26.0-34.0); MCHC 32.8 g/dL (28.0-37.0); MCV 73.3 fL (80.0-100.0); MONOCYTES 8.8 % (1.0-8.0); PLATELET COUNT 212 thou/uL (150-400); POLYS 63.4 % (36.0-66.0); RBC 3.98 mil/uL (4.50-6.00); RDW 15.8 % (10.5-14.5); WBC 4.4 thou/uL (4.0-11.0)
[2018-10-21 13:42] LABS: CREATININE 1.1 mg/dL (0.7-1.3); POTASSIUM 3.2 mmol/L (3.5-5.1)
[2018-10-21 13:49] LABS: ALBUMIN 1.3 g/dL (3.4-5.0); TOTAL BILIRUBIN 0.5 mg/dL (<0.1-1.0); TOTAL PROTEIN 5.2 g/dL (6.4-8.2)
[2018-10-21] MEDS ORDERED: MIRALAX17 GM PO (15:36)
[2018-10-21] MEDS ORDERED: LIDOCAINE1 EACH TOP (15:36)
[2018-10-21] MEDS ORDERED: COLACE100 MG PO (15:36)
[2018-10-21 15:50] VITALS: BP 135/72
== END 2018-10-21 16:39 | disposition home or self-care (01) ==
LOC: ER 11:32
PROVIDERS: Physician Assistant
DX: K59.00 Constipation, unspecified (principal); E11.42 Type 2 diabetes mellitus with diabetic polyneuropathy; I10 Essential (primary) hypertension; E78.00 Pure hypercholesterolemia, unspecified; Z85.07 Personal history of malignant neoplasm of pancreas; Z79.899 Other long term (current) drug therapy

== ENCOUNTER 2018-12-12 15:24 | Emergency (ER) | payer OTHER ==
[~2018-12-12] VITALS: Ht 180.3 cm; Wt 104.3 kg
[~2018-12-12 15:24] MED LIST changes: +COLACE100 MG PO; +LIDOCAINE1 EACH TOP
[2018-12-12] MEDS ORDERED: CONSTULOSE10 GM/15 M PO (19:59)
[2018-12-12 21:48] LABS: ABSOLUTE NEUTROPHILS 3.7 thou/uL (1.4-8.2); BASOPHILS 0.7 % (0.0-2.0); EOSINOPHILS 0.2 % (0.0-3.0); HEMATOCRIT 26.9 % (42.0-52.0); HEMOGLOBIN 8.8 gm/dL (14.0-18.0); LYMPHOCYTES 20.9 % (24.0-44.0); MCH 23.6 pg (26.0-34.0); MCHC 32.9 g/dL (28.0-37.0); MCV 71.9 fL (80.0-100.0); MONOCYTES 7.9 % (1.0-8.0); PLATELET COUNT 266 thou/uL (150-400); POLYS 70.3 % (36.0-66.0); RBC 3.74 mil/uL (4.50-6.00); RDW 15.5 % (10.5-14.5); WBC 5.3 thou/uL (4.0-11.0)
[2018-12-12 21:54] LABS: CALCIUM 7.6 mg/dL (8.5-10.1); CREATININE 1.3 mg/dL (0.7-1.3); POTASSIUM 3.6 mmol/L (3.5-5.1)
[2018-12-12 22:01] LABS: TOTAL BILIRUBIN 0.4 mg/dL (<0.1-1.0); TOTAL PROTEIN 5.1 g/dL (6.4-8.2)
[2018-12-12 23:31] VITALS: BP 140/74
--- NOTE | 2018-12-13 08:22 | EKG ---
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: : 1950 Requested By: Jaydon Albarado Order Number: [id number] MD: Freddy Virk Measurements Intervals [place] Rate: 97 P: 41 NH: 137 QRS: -17 QRSD: 76 T: 42 QT: 375 QTc: 477 Interpretive Statements Sinus rhythm Borderline left axis deviation Borderline low voltage, extremity leads Abnormal R-wave progression, early transition Baseline wander in lead(s) V2 Compared to ECG 09/08/2018 14:47:02 Early R-wave progression is now present Electronically Signed On 12-13-2018 8:21:42 CDT by Freddy Virk [email or web address] ��������������������������������������������� <ELECTRONICALLY SIGNED> ���������������������������������������� By: Freddy Virk MD, FACC ��������������������������������������������� 12/13/18 0821 2149 2149 Freddy Virk MD, [facility] /EPI
== END 2018-12-12 23:32 | disposition home or self-care (01) ==
LOC: ER 15:24
PROVIDERS: Emergency Medicine
DX: K59.00 Constipation, unspecified (principal); I10 Essential (primary) hypertension; E11.40 Type 2 diabetes mellitus with diabetic neuropathy, unspecified; E78.00 Pure hypercholesterolemia, unspecified; Z85.07 Personal history of malignant neoplasm of pancreas; Z79.4 Long term (current) use of insulin

== ENCOUNTER 2018-12-19 12:35 | Emergency (ER) | payer OTHER ==
[~2018-12-19] VITALS: Ht 180.3 cm; Wt 104.3 kg
[~2018-12-19 12:35] MED LIST changes: +CONSTULOSE10 GM/15 M PO
[2018-12-19 14:12] LABS: ABSOLUTE NEUTROPHILS 4.3 thou/uL (1.4-8.2); BASOPHILS 0.4 % (0.0-2.0); EOSINOPHILS 0.2 % (0.0-3.0); HEMATOCRIT 27.2 % (42.0-52.0); HEMOGLOBIN 9.1 gm/dL (14.0-18.0); LYMPHOCYTES 16.8 % (24.0-44.0); MCHC 33.3 g/dL (28.0-37.0); MONOCYTES 8.9 % (1.0-8.0); PLATELET COUNT 264 thou/uL (150-400); POLYS 73.7 % (36.0-66.0); RBC 3.79 mil/uL (4.50-6.00); RDW 15.6 % (10.5-14.5); WBC 5.8 thou/uL (4.0-11.0)
[2018-12-19 14:20] LABS: ANION GAP 1 mmol/L (7-16); BUN 14 mg/dL (7-18); CALCIUM 7.8 mg/dL (8.5-10.1); CHLORIDE 104 mmol/L (98-107); CO2 30 mmol/L (21-32); CREATININE 1.5 mg/dL (0.7-1.3); GLUCOSE 158 mg/dL (74-106); POTASSIUM 4.5 mmol/L (3.5-5.1); SODIUM 135 mmol/L (136-145)
[2018-12-19 14:30] LABS: DIRECT BILIRUBIN 0.3 mg/dL (<0.1-0.3); SGOT 36 U/L (15-37); SGPT 44 U/L (30-65); TOTAL BILIRUBIN 0.5 mg/dL (<0.1-1.0); TOTAL PROTEIN 5.3 g/dL (6.4-8.2); TROPONIN-I <0.06 ng/mL (<0.06)
[2018-12-19 14:57] LABS: TARGET CELLS 2+
[2018-12-19 14:58] LABS: HYPOCHROMASIA 3+; MICROCYTES 2+
[2018-12-19 16:10] LABS: URINE BILIRUBIN NEGATIVE (Negative); URINE BLOOD NEGATIVE (Negative); URINE CLARITY CLEAR; URINE COLOR YELLOW; URINE GLUCOSE-RANDOM* NEGATIVE (Negative); URINE KETONES NEGATIVE (Negative); URINE LEUKOCYTES-REFLEX NEGATIVE (Negative); URINE NITRITE-REFLEX NEGATIVE (Negative); URINE PROTEIN (DIPSTICK) NEGATIVE (Negative); URINE UROBILINOGEN 0.2 E.U./dl (0.2-1.0)
[2018-12-19 18:23] VITALS: BP 106/63
== END 2018-12-19 18:24 | disposition home or self-care (01) ==
LOC: ER 12:35
PROVIDERS: Emergency Medicine
DX: E63.8 Other specified nutritional deficiencies (principal); R60.0 Localized edema; E11.40 Type 2 diabetes mellitus with diabetic neuropathy, unspecified; I10 Essential (primary) hypertension; E78.00 Pure hypercholesterolemia, unspecified; Z85.07 Personal history of malignant neoplasm of pancreas

== ENCOUNTER 2018-12-20 10:21 | Inpatient (IN) | payer OTHER ==
[~2018-12-20] VITALS: Ht 180.3 cm; Wt 89.4 kg
[2018-12-20 15:07] LABS: HEMOGLOBIN 7.7 gm/dL (14.0-18.0); MCH 23.6 pg (26.0-34.0); MCHC 32.1 g/dL (28.0-37.0); MCV 73.5 fL (80.0-100.0); PLATELET COUNT 196 thou/uL (150-400); RBC 3.26 mil/uL (4.50-6.00); RDW 16.5 % (10.5-14.5)
[2018-12-20 15:19] LABS: CALCIUM 7.8 mg/dL (8.5-10.1); CREATININE 1.5 mg/dL (0.7-1.3); POTASSIUM 4.8 mmol/L (3.5-5.1)
[2018-12-20 15:25] LABS: ALBUMIN 0.8 g/dL (3.4-5.0); MAGNESIUM 2.2 mg/dL (1.8-2.4); TOTAL BILIRUBIN 0.3 mg/dL (<0.1-1.0); TOTAL PROTEIN 4.4 g/dL (6.4-8.2)
[2018-12-20 15:40] LABS: ANISOCYTOSIS 1+; HYPOCHROMASIA 1+; MICROCYTES 1+
--- NOTE | 2018-12-20 18:30 | NUR ---
PT RECEIVED DIRECT ADMIT FROM HOME AT 1350 ALERT AND IN NO ACUTE DISTRESS. PT ASSISTED TO BED AND HELPED TO UNDRESS. LEGS VERY HEAVY FROM PITTING EDEMA AND NEEDS ASSIST TO GET THEM INTO BED. PT ADMITTED TO UNIT. DR. BARKER NOTIFIED FOR ORDERS. HE CAME TO SEE PT AND MORE ORDERS WRITTEN. RT CHEST PORT ACCESSED PER IV TEAM.
[2018-12-20 19:19] LABS: OBSERVED RETIC COUNT 2.13 % (0.6-2.6)
[2018-12-20 19:20] LABS: ABSOLUTE RETIC COUNT 0.0697 10^6/uL
[2018-12-20 20:20] VITALS: BP 122/66
--- NOTE | 2018-12-20 23:45 | NUR ---
ASSUMED PT CARE 1899. PT ALERT AND ORIENTED. REASSESSMENTR COMPLETE. VSS. LABS DRAWN. UA COLLECTED. GLENDA BADILLO ORDERED. REPORTS PAUIN, SEE EMATR. ESTELAS N/V. ALTA GRAYIN INTACT. ORDETRS ACKNOWLEDGED. CALL LIGHT WITHIN REACH. WILL CONTRINUE POC UNTIL EOS.
[2018-12-20 23:59] LABS: URINE BILIRUBIN NEGATIVE (Negative); URINE BLOOD NEGATIVE (Negative); URINE CLARITY CLEAR; URINE COLOR YELLOW; URINE GLUCOSE-RANDOM* NEGATIVE (Negative); URINE KETONES NEGATIVE (Negative); URINE LEUKOCYTES-REFLEX NEGATIVE (Negative); URINE NITRITE-REFLEX NEGATIVE (Negative); URINE PROTEIN (DIPSTICK) NEGATIVE (Negative); URINE UROBILINOGEN 0.2 E.U./dl (0.2-1.0)
[2018-12-21 00:05] LABS: % SATURATION 128 % (20-39); IRON 59 ug/dL (65-175); TIBC 46 ug/dL (250-450)
[2018-12-21 00:33] LABS: FOLIC ACID 14.3 ng/mL (8.6-58.9)
[2018-12-21 04:03] VITALS: BP 118/72
[2018-12-21 06:06] LABS: HEMATOCRIT 21.8 % (42.0-52.0); HEMOGLOBIN 7.3 gm/dL (14.0-18.0); MCH 23.8 pg (26.0-34.0); MCHC 33.6 g/dL (28.0-37.0); MCV 70.9 fL (80.0-100.0); RBC 3.08 mil/uL (4.50-6.00); RDW 15.8 % (10.5-14.5); WBC 4.6 thou/uL (4.0-11.0)
[2018-12-21 06:18] LABS: CALCIUM 7.5 mg/dL (8.5-10.1); CREATININE 1.3 mg/dL (0.7-1.3); MAGNESIUM 2.1 mg/dL (1.8-2.4)
[2018-12-21 07:57] LABS: PROT/CREAT RATIO 0.3; URINE CREATININE-RANDOM* 51.8 mg/dL; URINE POTASSIUM-RANDOM* 30.2 mmol/L; URINE PROTEIN-RANDOM* 14.3 mg/dL (<11.9)
[2018-12-21 08:09] VITALS: BP 122/71
--- NOTE | 2018-12-21 17:35 | NUR ---
PT ADMITTED RELATED TO WEAKNESS, ANASARCA. CM REVIEWED CHART AND SPOKE WITH KEIRY TEAM. CM MET WITH PT AT BEDSIDE THIS DAY. PT IS A&O X4. CM ROLE INTRODUCED. PT INDICATED HE LIVES IN A HOUSE WITH HIS SPOUSE WITH 12 STEPS TO ENTER AND NO STEPS INSIDE. 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 PT INDICATED NO HH HX. PT INDICATED HE WANTED HH UPON DC. CM TO FOLLOW INDICATED WITH DC PLANNING.
[2018-12-21 19:40] VITALS: BP 140/62
--- NOTE | 2018-12-21 20:13 | NUR ---
ASSUMED CARE OF PT AT 0700. ASSESSMENT CHARTED. A&O,X4. C/O BLE PAIN/TINGLING - MEDS GIVEN ORDERED. MRI AND CT SCAN COMPLETED TODAY. PT NPO BEFORE IMAGING. ACHS, NOT INDICATED PER SLIDING SCALE. SKIN INTACT. BM TODAY, SENT FOR OCCULT BLOOD TEST. GENERALIZED EDEMA AND +3/+4 BLE, LASIX GIVEN ORDERED. FAMILY AT BEDSIDE THIS EVENING. PT WEAK AND SLOWLY PROGRESSING TOWARDS GOALS.
[2018-12-22 00:08] LABS: GLYCOHEMOGLOBIN (HGB A1C) 6.3 % (4.8-5.6)
[2018-12-22 05:08] VITALS: BP 116/73
--- NOTE | 2018-12-22 05:38 | NUR ---
ASSUMED CARE OF PT @1900 PT ASSESSED AT START OF SHIFT. A&OX4 AT THIS SHIFT. WEAK AND UP WITH WALKER TO BATHROOM AND URINAL AT BEDSIDE FOR THE NIGHT. ADMINISTERED PAIN MEDICATION FOR BLE PAIN SEE EMAR. ELEVATED FOOT ON PILLOWS DIDN'T WANT THE BOOTS ON. EVENING MEDS GIVEN AND PT FLOR IT WELL. POC DONE AND WILL CONTINUE TO MONITOR TILL EOS
[2018-12-22 06:02] LABS: ALBUMIN 1.1 g/dL (3.4-5.0); CALCIUM 7.6 mg/dL (8.5-10.1); CREATININE 1.4 mg/dL (0.7-1.3); PHOSPHORUS 3.8 mg/dL (2.5-4.9); POTASSIUM 3.7 mmol/L (3.5-5.1)
[2018-12-22 07:15] VITALS: BP 126/70
[2018-12-22 07:33] VITALS: BP 126/70
--- NOTE | 2018-12-22 11:12 | HC ---
[facility] [place] [address] CONSULTATION Name: CHRISTOPHER OLIVER Room #: 420-P [facility] IN M.R.#: [id number] Admission: 12/20/18 Attend Phys: Emmanuel Carreon MD Discharge: Date of : 48 Report #: [id number] THIS REPORT FOR: //name// CC: Emmanuel Carreon DATE OF SERVICE: 12/21/2018 NEPHROLOGY CONSULTATION ATTENDING PHYSICIAN: Dr. Carreon. REASON FOR CONSULTATION: Anasarca. HISTORY OF PRESENT ILLNESS: This 68-year-old gentleman had stage IIB pancreatic cancer, underwent chemotherapy, did not complete his full 6 cycles, only 4 cycles because of poor performance status. He had a Whipple procedure and he tells us that they got all the cancer out at that time and he has been since that time had persistent nausea, vomiting and poor appetite. Because of his poor nutritional status, he has extremely low albumin of 0.8 and subsequently has developed progressive anasarca. PAST MEDICAL HISTORY: In addition, he also had a small stroke earlier this year and a history of diabetes mellitus. HOME MEDICATIONS: Include furosemide 40 mg b.i.d., gabapentin 300 mg a.m. and 600 mg p.m., carvedilol 3.125 mg b.i.d., aspirin 81 mg daily, Eliquis 5 mg b.i.d. and Carafate as well as insulin and oxycodone. He also gets MiraLax and lactulose p.r.n. for constipation. SOCIAL HISTORY: No substantial cigarettes or alcohol. Lives at home with his . REVIEW OF SYSTEMS: GENERAL: He has been feeling poorly. EYES: His vision is okay. ENT: Hearing okay, swallows okay. No mouth sores. ENDOCRINE: Positive for diabetes. RESPIRATORY: He does get somewhat easily short-winded with exertion. CARDIAC: No chest pain or angina. He did have AFib and palpitations at that time. GASTROINTESTINAL: Poor appetite with occasional nausea and vomiting. GENITOURINARY: Good urinary stream without dysuria, hematuria or renal stones. NEUROLOGIC: Generalized weakness. MUSCULOSKELETAL: No arthritis. PHYSICAL EXAMINATION: [facility] [address] [place] [address] CONSULTATION Name: CHRISTOPHER OLIVER Room #: 420-P [facility] IN M.R.#: [id number] Admission: 12/20/18 Attend Phys: Emmanuel Carreon MD Discharge: Date of : 46 Report #: [id number] GENERAL: This is a chronically ill-appearing gentleman. SKIN: Otherwise unremarkable. SKELETAL: Well developed, well nourished, but very swollen. HEENT: Extraocular movements are full. Vision and hearing are intact. Mucous membranes are moist. CHEST: Shows diminished breath sounds at the bases. HEART: Regular. ABDOMEN: Soft and nontender, somewhat distended. EXTREMITIES: Show generalized anasarca with pitting edema. NEUROLOGIC: Grossly intact. LABORATORY DATA: Hemoglobin 7.7, creatinine 0.8, albumin 0.8. ASSESSMENT AND PLAN: 1. Anasarca. He has anasarca from poor nutrition and hypoalbuminemia. I suspect he may have ongoing difficulties with pancreatic cancer or simply the result of his surgery and poor nutrition on the basis of postoperative result. In any event, diuresis will be pursued. We will increase his Lasix, add spironolactone and some potassium chloride, add some IV albumin. I suspect we will be able to diurese him. 2. Diabetes mellitus. DICTATION ENDS HERE <ELECTRONICALLY SIGNED> By: Tommy Vora MD 12/22/18 1112 1208 0035 Tommy Vora MD /nt
--- NOTE | 2018-12-22 12:16 | NUR ---
PATIENT PLEASANT AND AGREEABLE. ALERT 1-2 - SPENT MORNING READING NOVEL. MEDICATION COMPLIANT. NO PAIN WHEN ASSESSED. THICKENED LIQUIDS - NECTAR WITH MEDS.
[2018-12-22 15:49] VITALS: BP 113/79
--- NOTE | 2018-12-22 17:38 | NUR ---
PATIENT VERY LETHARGIC. MEDICATION COMPLIANT. BLOOD SUGARS BEEN STABLE - FAMILY CONCERNED ON DOSAGES OF INSULIN AND HELD AT DINNER. PATIENT AMBULATORY WITH STAND BY ASSIST TO GET OUT OF BED. AFFECT FLAT AND MOOD QUIET - HAD FAMILY VISIT AND TOLERATED WELL. PICC LINE PATENT - ENEMA +1 LOWER EXTREMITIES.
[2018-12-22 19:28] VITALS: BP 130/71
[2018-12-23 03:42] VITALS: BP 135/74
--- NOTE | 2018-12-23 04:59 | NUR ---
ASSESSMENT COMPLETED.PT WITH GEN. EDEMA,LASIX GIVEN ORDERED,ADEQUATE OUTPUT NOTED.ALBUMIN GIVEN ORDERED.PT REPOSITIONED PER HIS REQUEST.PT ON 1200CC FLUID RESTRICTION/24HRS.NO BM NOTED SO FAR.UP WITH ASSIST X1.PT RESTING ON HIS BED AT THIS TIME.FALL PRECAUTIONS IN PLACE,CALL LIGHT WITHIN REACH.
[2018-12-23 05:00] LABS: HEMOGLOBIN 6.6 gm/dL (14.0-18.0)
[2018-12-23 05:12] LABS: HEMATOCRIT 19.9 % (42.0-52.0)
[2018-12-23 05:29] LABS: ALBUMIN 1.3 g/dL (3.4-5.0); CALCIUM 7.4 mg/dL (8.5-10.1); CREATININE 1.4 mg/dL (0.7-1.3); MAGNESIUM 1.5 mg/dL (1.8-2.4); PHOSPHORUS 3.9 mg/dL (2.5-4.9); POTASSIUM 3.6 mmol/L (3.5-5.1)
[2018-12-23 07:01] LABS: % SATURATION 71 % (20-39); IRON 45 ug/dL (65-175); TIBC 63 ug/dL (250-450)
[2018-12-23 07:10] VITALS: BP 125/68
[2018-12-23 13:49] VITALS: BP 103/49; BP 131/75
--- NOTE | 2018-12-23 15:13 | NUR ---
Assumed pt care at 7am.Pt in bed sleeping but arousable.Assessment completed.vss.Hgb was low today and pt needs blood transfusion.Noc rn already got order for 2 units prbc to be given today.Pt tolerated meds and diet but has poor appetite.Family here to visit,updates given.Adequate u/o noted per urinal.Will continue to monitor.
[2018-12-23 16:08] VITALS: BP 128/64
[2018-12-23 19:06] VITALS: BP 109/58
--- NOTE | 2018-12-24 00:03 | NUR ---
ASSESSMENT COMPLETED.PT LETHARGIC BUT EASILY AROUSABLE.MEDS GIVEN ORDERED.PT WAS SUPPOSED TO GET THE SECOND UNIT OF BLOOD BUT WAS NOT READY AT THE BLOOD BANK.DR BARKER NOTIFIED ORDER NOTED TO GIVE THE SECOND UNIT TOMORROW IF HGB <7.2.(DON'T HAVE TO CALL DR BARKER).PT WITH GOOD URINE OUTPUT.FAMILY HERE TO VISIT.PT RESTING COMFORTABLY ON HIS BED.REPOSITIONED PER HIS REQUEST.FALL PRECAUTIONS IN PLACE,CALL LIGHT WITHIN REACH.
[2018-12-24 03:36] VITALS: BP 124/66
[2018-12-24 05:47] LABS: HEMATOCRIT 25.1 % (42.0-52.0); HEMOGLOBIN 8.3 gm/dL (14.0-18.0); MCH 24.5 pg (26.0-34.0); MCHC 33.2 g/dL (28.0-37.0); MCV 73.9 fL (80.0-100.0); RBC 3.39 mil/uL (4.50-6.00); RDW 17.7 % (10.5-14.5)
[2018-12-24 06:01] LABS: ALBUMIN 1.3 g/dL (3.4-5.0); CALCIUM 7.7 mg/dL (8.5-10.1); CREATININE 1.2 mg/dL (0.7-1.3); PHOSPHORUS 3.9 mg/dL (2.5-4.9); POTASSIUM 3.4 mmol/L (3.5-5.1)
[2018-12-24 06:02] LABS: ALBUMIN 1.4 g/dL (3.4-5.0); DIRECT BILIRUBIN 0.3 mg/dL (<0.1-0.3); TOTAL BILIRUBIN 0.7 mg/dL (<0.1-1.0); TOTAL PROTEIN 4.4 g/dL (6.4-8.2)
[2018-12-24 07:08] VITALS: BP 137/93
--- NOTE | 2018-12-24 12:23 | NUR ---
WOUND CONSULT; IDENTIFIED A FRICTION WOUND TO THE COCCYX, LINEAR LINES SEEN. A PARTIAL THICKNESS TEAR. ALSO AN AREA TO THE BACK. PARTIAL THICKNESS RE; FRICTION WELL. RECOMMENDATION; ZGUARD TO COXXYX, A BOARDERED FOAM TO THE BACK. I WILL ADD A LOW AIR LOSS PUMP TO THE BED. RN PRESENT
[2018-12-24 14:50] VITALS: BP 118/64
--- NOTE | 2018-12-24 16:26 | NUR ---
PATIENT CONTINUES WITH WEAKNESS, CONTINUES TO BE A HIGH FALL RISK. HEMAGLOBIN NOTED TO BE 8.3 TODAY, DR BARKER NOTIFIED; HE GAVE NO NEW ORDERS. CLIENT HAS REQUESTED ET RECIEVED PAIN MEDICATION FOR "MY FOOT PAIN." PAIN MEDICATION WAS EFFECTIVE, CLIENT HAS SPENT MOST OF THE DAY SLEEPING AND HAS BEEN VERY LETHARGIC. CLIENT DENIES PAIN RELIEF AT X'S , STATING "YOU GUYS DON'T DO NOTHING ABOUT MY PAIN!" HE SEEMS TO BE FORGETFUL ABOUT RECIEVING THIS MEDICATION. PORT-A-CATH TO RIGHT CHEST IS PATENT; DRESSING IS CLEAN ET INTACT. WOUND CARE NURSE NOTIFIED OF EXCORIATION TO COCCYX. Z-GUARD IS TO BE USED TO THIS AREA Q SHIFT ET PRN. INSULIN HAS NOT BEEN NEEDED DURING THIS SHIFT.FAMILY HERE MOST OF THE DAY.
--- NOTE | 2018-12-24 16:53 | NUR ---
ASSUMED CARE AT 0700, SHIFT ASSESSMENT DONE, MEDS GIVEN, VSS. REPORTED PAIN, PRN PAIN MEDS GIVEN, VSS. DENIES NAUSEA, VOMITING. ROOM AIR, WILL CONTINUE TO ASSESS AND ASSSIST WITH ADLs NEEDED.
[2018-12-24 19:47] VITALS: BP 126/76
--- NOTE | 2018-12-25 01:37 | NUR ---
ASSESSMENT COMPLETED. PT IS ALERT AND ORIENTED.VERY SOFT SPOKEN, SWALLOWS MEDS OKAY. REPOSITIONING PROVIDED. Z-GUARD APPLIED TO BOTTOM. TENDERNESS AND PAIN TO BLE MOSTLY DUE TO NEUROPATHY-LYRICA STARTED AND REGULAR PRN MEDS GIVEN. PT USES URINAL. INSULIN(SSI) ADJUSTED.AFEBRILE. PT REFUSES TO USE PRAFO BOOTS.BLE OFFLOADED ON PILLOWS.ON CLARISA MATTRESS.CALL LIGHT WITHIN REACH. WILL CONTINUE WITH POC TILL EOS.
[2018-12-25 04:52] VITALS: BP 121/57
[2018-12-25 06:43] LABS: ALBUMIN 1.2 g/dL (3.4-5.0); CALCIUM 7.7 mg/dL (8.5-10.1); CREATININE 1.3 mg/dL (0.7-1.3); PHOSPHORUS 3.5 mg/dL (2.5-4.9); POTASSIUM 3.8 mmol/L (3.5-5.1)
[2018-12-25 07:03] LABS: HEMATOCRIT 25.1 % (42.0-52.0); HEMOGLOBIN 8.4 gm/dL (14.0-18.0)
[2018-12-25 07:45] VITALS: BP 120/57
[2018-12-25 10:44] VITALS: BP 100/66
[2018-12-25 16:10] VITALS: BP 132/65
--- NOTE | 2018-12-25 16:47 | NUR ---
PATIENT HAS BEEN IRRITABLE AT TIMES TODAY. HE HAS COMPLAINED THAT "YOU GUYS AREN'T GIVING ME ANYTHING FOR MY PAIN!" CLIENT WILL DENY THAT HE IS IN PAIN THEN COMPLAIN THAT HE IS IN PAIN WITHIN THE NEXT FIVE MINUTES. HE HAS BEEN GIVEN PAIN MEDICATION NEEDED, HAS BEEN SLEEPING OFF-ET-ON THROUGHOUT THE DAY. HE HAS NOT NEEDED AN INSULIN THUS FAR TODAY. FAMILY HAS BEEN AT BEDSIDE. PATIENT HAS BEEN USING A URINAL IN BED BUT IS INCONTINENT AT TIMES. PATIENT CONTINUES TO BE A [facility] FALL RISK. WILL CONTINUE TO MONITOR.
[2018-12-25 20:15] VITALS: BP 120/59
--- NOTE | 2018-12-26 04:59 | NUR ---
ASSUMED CARE OF PT @1900. PT A&OX4. C/O OF 3/10 PAIN, DIDN'T WANT ANYTHING FOR PAIN. NO C/O OF N/V. PT IS Q2HR REPOSITIONING.
[2018-12-26 07:19] VITALS: BP 106/64
[2018-12-26 13:54] LABS: HEMATOCRIT 28.9 % (42.0-52.0); HEMOGLOBIN 9.5 gm/dL (14.0-18.0)
[2018-12-26 14:05] LABS: ALBUMIN 1.3 g/dL (3.4-5.0); ANION GAP < 0 mmol/L (7-16); BUN 22 mg/dL (7-18); CALCIUM 7.8 mg/dL (8.5-10.1); CHLORIDE 101 mmol/L (98-107); CO2 36 mmol/L (21-32); CREATININE 1.4 mg/dL (0.7-1.3); GLUCOSE 312 mg/dL (74-106); MAGNESIUM 1.6 mg/dL (1.8-2.4); PHOSPHORUS 3.6 mg/dL (2.5-4.9); POTASSIUM 4.3 mmol/L (3.5-5.1); SODIUM 136 mmol/L (136-145)
[2018-12-26 16:10] VITALS: BP 118/72
--- NOTE | 2018-12-26 16:32 | NUR ---
PATIENT HAS BEEN LESS IRRITABLE DURING THIS SHIFT. HE CONSUMED 95% OF HIS BREAKFAST. HE HAS BEEN STARTED ON CLEAR LIQUIDS PER DR. DAILEY AND IS TOO BEGIN COLONOSCOPY PREP AT 1800. PATIENT IS TO BE NPO AFTER MIDNIGHT. PATIENT EDUCATION PROVIDED PER THESE NEW ORDERS; HE VERBALIZED AN UNDERSTANDING. ASSISTED WITH WALKING THIS AFTERNOON WITH STANDBY ASSIST OF CPA. HE WAS ASSISED WITH A BED BATH WELL. PAIN HAS BEEN WELL CONTROLLED WITH OXYCODONE ET LYRICA. HE HAS BEEN ASSISTED TO CHAIR ET REPOSITIONED IN BED. EXCORIATION TO COCCYX AREA HAS NO NOTED CHANGES; HE HAS NOT COMPLAINED OF PAIN TO THIS AREA. FAMILY HAS BEEN AT BEDSIDE SINCE LATE MORNING. WILL CONTINUE TO MONITOR.
[2018-12-26 19:00] VITALS: BP 116/71
--- NOTE | 2018-12-27 03:17 | NUR ---
ASSESSMENT COMPLETED.PT FINISHED HIS BOWEL PREP ORDERED.PT HAVING BM BUT NOT CLEAR YET.PT REPOSITIONED Q2 BUT OCCASIONALLY REF.PT REF TO WEAR HIS PRAFO BOOTS ON,LEGS ELEVATED WITH A PILLOW.TX DONE TO HIS COCCYX.PT RESTING ON HIS BED AT THIS TIME.
[2018-12-27 04:45] VITALS: BP 104/72
[2018-12-27 06:59] LABS: HEMATOCRIT 28.3 % (42.0-52.0); HEMOGLOBIN 9.3 gm/dL (14.0-18.0)
[2018-12-27 07:10] LABS: ALBUMIN 1.3 g/dL (3.4-5.0); CALCIUM 7.9 mg/dL (8.5-10.1); CREATININE 1.2 mg/dL (0.7-1.3); PHOSPHORUS 3.8 mg/dL (2.5-4.9); POTASSIUM 3.9 mmol/L (3.5-5.1)
[2018-12-27 07:20] VITALS: BP 118/68
--- NOTE | 2018-12-27 12:13 | NUR ---
WOUND CARE FOLLOW UP; ASSESSMENT REALEALS SIGNIFICANT HEALLING. THE WAS EDUCATED IN HOME CARE OF THESE WOUND. I WILL CONTINUE TO EDUCATE AND ASSESS THE LEARNING NEEDS. CURRENTLY SHE VERBALIZED UNDERSTANDING. RECOMMENDATION; CONTINUE CURRENT TREATMENT. DISCUSSED WITH RN
--- NOTE | 2018-12-27 13:27 | NUR ---
ASSUMED CARE AT 0700, SHIFT ASSESSMENT DONE, MEDS GIVEN, VSS. NPO SINCE LAST NIGHT, WENT FOR COLONOSCPY THIS AFTERNOON. ACCORDING TO THE NIGHT NURSE, BOWEL PREP WAS COMPLETE. REPORTED SOME PAIN THIS AM, PRN FENTANYL GIVEN. WILL CONTINUE TO ASSESS AND ASSIST WITH ADLs NEEDED.
[2018-12-27 16:15] VITALS: BP 140/64; BP 88/51
[2018-12-27 19:52] VITALS: BP 107/55
--- NOTE | 2018-12-28 03:44 | NUR ---
PT DENIED PAIN SO FAR.REPOSITIONED WHILE IN BED.PT MORE ALERT THIS SHIFT.URINAL AT BEDSIDE FOR ELIMINATION.UP WITH ONE ASSIST.PT ABLE TO MAKE HIS NEEDS KNOWN.TX TO COCCYX WOUND.FALL PRECAUTIONS IN PLACE,CALL LIGHT WITHIN REACH.
[2018-12-28 04:42] VITALS: BP 118/57
[2018-12-28 07:45] VITALS: BP 113/65
[2018-12-28 09:29] LABS: HEMATOCRIT 27.1 % (42.0-52.0); HEMOGLOBIN 9.1 gm/dL (14.0-18.0)
[2018-12-28 09:45] LABS: ALBUMIN 1.2 g/dL (3.4-5.0); CALCIUM 7.7 mg/dL (8.5-10.1); CREATININE 1.4 mg/dL (0.7-1.3); PHOSPHORUS 3.2 mg/dL (2.5-4.9); POTASSIUM 3.8 mmol/L (3.5-5.1)
--- NOTE | 2018-12-28 14:32 | P ---
[facility] [place] [address] PROCEDURE REPORT Name: CHRISTOPHER OLIVER Room #: 420-P [facility] IN M.R.#: [id number] Admission: 12/20/18 Attend Phys: Emmanuel Carreon MD Discharge: Date of : 46 Report #: [id number] THIS REPORT FOR: //name// CC: Dr. Cyn Carreon MD DATE OF SERVICE: 12/27/2018 PROCEDURE PERFORMED: Colonoscopy. HISTORY OF PRESENT ILLNESS: The patient is a 68-year-old male who was admitted on 12/20/2018 for generalized weakness, lower extremity edema. He has a history of pancreatic cancer status post Whipple procedure. Also with coronary artery disease, DVT, CVA, history of obesity. Previous upper endoscopy in July showing gastritis, otherwise negative. He has been on PPI therapy as well as Carafate. Hemoglobin on admission was 7.3. The patient has a Hemoccult positive stool. No obvious blood in general. Last colonoscopy was approximately 5 years ago reportedly at [facility]. Hemoglobin today is 9.3. Plan is for colonoscopy. DESCRIPTION OF PROCEDURE: The risks and benefits of the procedure were explained to the patient. Those risks including but not limited to bleeding, perforation and the risk of sedation. He understood these risks and gave informed consent. Sedation was given using propofol per anesthesia. Next, a digital rectal exam was initially performed, which was normal. Next, using a standard Olympus colonoscope, the scope was placed in the patient's anus and advanced under direct vision to the cecum. The overall prep was good in most areas. It was somewhat fair in a few small areas. Multiple washings and aspirations were performed. The cecum and ileocecal valve were normal in appearance. Ascending, transverse, descending and sigmoid colon were all normal. The rectal mucosa was normal. On retroflexion, small nonbleeding internal hemorrhoids were noted. The scope was then withdrawn and the procedure terminated. The patient tolerated the procedure well. IMPRESSION: 1. Small internal hemorrhoids. 2. Otherwise, normal colonoscopy. RECOMMENDATIONS: The patient with anemia, heme-positive stool. No evidence of bleeding on exam today. Previous upper endoscopy was in July of this year in which only mild gastritis was noted. We would continue to monitor hemoglobin. Recommend iron supplementation. We will advance diet. [address] [address] PROCEDURE REPORT Name: CHRISTOPHER OLIVER Room #: 420-P [facility] IN M.R.#: [id number] Admission: 12/20/18 Attend Phys: Emmanuel Carreon MD Discharge: Date of : 48 Report #: [id number] Thank you for allowing me to participate in his care. <ELECTRONICALLY SIGNED> By: Surya Martini MD 12/28/18 1432 [id number] Surya Martini MD /nt
[2018-12-28 15:54] VITALS: BP 112/51
--- NOTE | 2018-12-28 16:08 | NUR ---
CARE TEAM ARE RECOMMENDING POST ACUTE CARE STAY. CM MET WITH PT'S SPOUSE AT BEDSIDE THIS DAY. THEY INDICATED THAT THEY WERE INTERESTED IN 5N AND IF NOT APPROPRIATE FOR 5N THEY WERE INTERESTED IN REFERRAL BEING SENT TO [facility]. REFERRAL SENT. CM TO FOLLOW INDICATED WITH DC PLANNING.
--- NOTE | 2018-12-28 16:32 | NUR ---
FAXED REFERRAL TO [facility] SPOKE WITH ELIAS IN ADM SHE RECEIVED REFERRAL AND WILL REVIEW. DCP TO FOLLOW.
--- NOTE | 2018-12-28 17:05 | NUR ---
ASSUMED CARE AT 0700, SHIFT ASSESSMENT DONE, MEDS GIVEN, VSS. WORKED WITH PHYSICAL AND OCCUPATIONAL THERAPHY. HGB AT 8.7, TOLERATING PO DIET FINE. GOT A BATH TODAY. WILL CONTINUE TO ASSESS AND ASSIST WITH ADLs NEEEDED.
--- NOTE | 2018-12-28 17:33 | NUR ---
PATIENT SEEN BY LOLA MONGE NP WITH DR. MAC. PATIENT HAS REHAB NEEDS, BUT NOT MEDICAL COMPLEXITY REQUIRED FOR ACUTE REHAB STAY. SKILLED RECOMMENDED FOR DISCHARGE LOCATION. PHYSICIAN AND SCHOOL LUNCH MONITOR NOTIFIED. THANK YOU FOR THIS REFERRAL.
[2018-12-28 19:23] VITALS: BP 127/75
--- NOTE | 2018-12-29 01:02 | NUR ---
ASSUMED CARE OF PT @1900 PT ASSESED AT START OF SHIFT A&OX4 AT THIS SHIFT. UP WITH X1 ASSIST TO THE BATHROOM AND URINAL AT BEDSIDE. EVENING MEDS GIVEN AND PT FLOR IT WELL. ZYGARD APPLIED ON SACRAL. PT HELPS REPOSITIONS SELF. INSULIN GIVEN FOR BLOOD SUGAR. FALL PREC IN PLACE AND CALL LIGHT WITHIN REACH WILL CONT TO MONITOR TILL EOS.
[2018-12-29 04:19] VITALS: BP 113/67
[2018-12-29 06:07] LABS: HEMATOCRIT 24.7 % (42.0-52.0); HEMOGLOBIN 8.1 gm/dL (14.0-18.0)
[2018-12-29 06:20] LABS: CALCIUM 7.5 mg/dL (8.5-10.1); CREATININE 1.3 mg/dL (0.7-1.3); POTASSIUM 3.4 mmol/L (3.5-5.1)
[2018-12-29 07:52] VITALS: BP 112/61
--- NOTE | 2018-12-29 10:50 | NUR ---
WOUND CARE FOLLOW UP; THE BACK WOUND IS HEALED. WE WILL KEEP A BOARDERED FOAM ON FOR PROTECTION ONLY. THE COCCYX WOUND IS HEALING WELL USING ZGUARD NO S/S OF INFECTION SEEN. GRANULATION BUDS NOTED. RECOMMENDATION; CONTINUE CURRENT TRREATMENT. DISCUSSED WITH CHERI
--- NOTE | 2018-12-29 16:07 | NUR ---
UPATED THERAPY NOTES WERE SENT TO [facility] THIS MORNING AND THEY HAVE SUBMITTED THEM FOR AUTH. CM TO [facility] INDICATED WITH DC PLANNING.
[2018-12-29 16:28] VITALS: BP 121/72
--- NOTE | 2018-12-29 19:46 | NUR ---
ASSUMED CARE OF PATIENT AT 0715, PATIENT ALERT AND ORIENTED X 4. PATIENT UP WITH ASSIST X 1 WITH GAIT BELT AND WALKER. PATIENT C/O WEAKNESS. PT/OT WORKED WITH PATIENT TODAY. PATIENT DENIES PAIN THIS SHIFT, BUT C/O SOME PAIN WITH LEFT FOOT, NEW ULCER NOTED THIS EVENING ON LEFT 4TH TOE, DR BARKER HERE THIS EVENING AND CONSULTED WOUND CARE TO SEE PATIENT IN AM. TOP OF SACRUM AREA PINK WITH Z-MARK APPLIED/TOSHIA, TURN Q2HRS. BLOOD SUGAR MONITORING ORDERED, DINNER BS 305, RECEIVED 3 UNITS OF INSULIN. LABS ORDERED IN AM. POTASSIUM 3.4, POTASSIUM ORDERED 20MEQ X 3 DOSES. FAMILY AT BEDSIDE THIS EVENING, UPDATE GIVEN. WILL CONTINUE TO MONITOR.
[2018-12-29 21:05] VITALS: BP 103/62
[2018-12-30 05:38] LABS: HEMATOCRIT 24.4 % (42.0-52.0); HEMOGLOBIN 8.1 gm/dL (14.0-18.0)
[2018-12-30 05:44] LABS: ALBUMIN 1.1 g/dL (3.4-5.0); CALCIUM 7.5 mg/dL (8.5-10.1); CREATININE 1.2 mg/dL (0.7-1.3); PHOSPHORUS 2.7 mg/dL (2.5-4.9); POTASSIUM 3.9 mmol/L (3.5-5.1)
--- NOTE | 2018-12-30 05:56 | NUR ---
ASSUMED CARE OF PT @1900 PT ASSESSED AT START OF SHIFT, SITTING UP IN CHAIR LATER TRANSFERRED TO COMMODE AND PT HAD 1 BM THIS EVENING. C/O PAIN PAIN MEDS GIVEN ALONG SIDE WITH EVENING MEDS. PT BACK IN BED REPOSITIPONED FOR COMFORT. ENCOURAGED PT TO MOVE EXTREMITIES. PILLOWS PLACED ON BOTH FOOT. ZYGARD CREAM APPLIED ON SACRAL. HOURLY ROUNDING DONE AND PT USES URINAL AT BEDSIDE. POC DONE AND WILL CONTINUE TO MONITOR TILL EOS.
[2018-12-30 08:03] VITALS: BP 109/63
--- NOTE | 2018-12-30 09:49 | NUR ---
WOUND CARE FOLLOW UP; I WAS CONSULTED TO SEE THIS PATIENT FOR A WOUND THE PATIENT "HAS HAD FOR SOME TIME PRIOR TO THIS ADMISION", THE PATIENT STATES. THE WOUND IS BETWEEN THWE 3-4TH TOES/RIGHT FOOT FROM 3 TO 9:00 BETWEEN AND UNDER THE TOE. THE FOOT TEMP WAS WNL AND CONSISTANT WITH THE RIGHT FOOT. RECCOMMENDATION; THE WOUND IS SIGNIFICANT ENOUGH TO CONSULT DR CAITLYN MIX FOR HIS RECOMMENDATIONS. FOR NOW SUSY HENSON, SECURE WITH JUSTUS. DISCUSSED WITH CHERI
[2018-12-30 16:40] VITALS: BP 115/63
--- NOTE | 2018-12-30 19:32 | NUR ---
ASSUMED CARE OF PATIENT AT 0715, PATIENT ALERT AND ORIENTED X 4. PATIENT C/O PAIN WITH LEFT FOOT/COCCYX AREA. PATIENT RECEIVED OXYCODONE 10 MG X 1 THIS SHIFT, WITH GOOD RELIEF. PATIENT UP TO THE CHAIR TODAY X 2. PATIENT HAS RIGHT CHEST POC IN PLACE, RECEIVED IRON IVPB X 1 THIS SHIFT. BLOOD SUGAR MONITORING ORDERED, WITH S/S INSULIN PER BLOOD SUGAR READING. WOUND CARE SAW THE PATIENT TODAY, NEW WOUND TO LEFT FOOT, 4TH TOE, NEW ORDERS FOR WOUND CARE IN COMPUTER. Z-GUARD TO COCCYX AREA, HEALING, MID-BACK AREA HEALED. US ARTERIAL LOWER EXT. BILATERAL TO CHECK BLOOD FLOW DONE THIS AFTERNOON. LABS ORDERED IN AM. PATIENT WILL DISCHARGE TO [facility] TOMORROW. FAMILY AT BEDSIDE TODAY. WILL CONTINUE TO MONITOR.
[2018-12-30 21:20] VITALS: BP 103/59
[2018-12-31 03:50] VITALS: BP 109/64
[2018-12-31 05:50] LABS: HEMOGLOBIN 8.1 gm/dL (14.0-18.0)
[2018-12-31 06:01] LABS: ALBUMIN 1.1 g/dL (3.4-5.0); CALCIUM 7.8 mg/dL (8.5-10.1); CREATININE 1.3 mg/dL (0.7-1.3); MAGNESIUM 1.5 mg/dL (1.8-2.4); PHOSPHORUS 2.6 mg/dL (2.5-4.9); POTASSIUM 3.9 mmol/L (3.5-5.1)
--- NOTE | 2018-12-31 06:38 | NUR ---
ASSUMED CARE OF PT AT 1900. PT A&OX4. ASSESSMENT COMPLETED. OPEN EXCORIATION ON COCCYX AREA, ZGUARD APPLIED ON IT. WOUND ON LEFT 4TH TOE. PT IS Q2HR TURNS. FALL PREC. IN PLACE. CALL MCMULLEN WITHIN REACH
[2018-12-31 07:52] VITALS: BP 113/71
--- NOTE | 2018-12-31 14:22 | NUR ---
WOUND CARE FOLLOW UP; THE COCCYX WOUND IS STABLE WITH NO PERCEPTIABLE CHANGES SINCE LAST VISIT. NO S/S OF INFECTION.THE LEFT FOOT TOE WOUNDS SHOWS IMPROVEMENT SINCE LAST DRESSING CHANGE. RECOMMENDATIONS; CHANGE FROM AQUACEL AG TO XEROFORM FAMILY PRESENT, CONCERNED AND POLITE. ANSWERED MANY QUESTIONS. I DID NOT LEAVE UNTIL ALL QUESTIONS WERE ANSWERED.
--- NOTE | 2018-12-31 16:36 | NUR ---
CARE TEAM INDICATED THAT THEY ARE TO DO AN ANGIOGRAM THURSDAY. [facility] WAS NOTIFIED. WE WILL NEED TO SEEK AUTH AGAIN ONCE PT IS MEDICALLY STABLE. CM TO FOLLOW INDICATED WITH DC PLANNIG.
--- NOTE | 2018-12-31 16:41 | NUR ---
ASSUMED CARE OF PT APPROX 0715, A&0X4, AMB W/SBA AND WALKER. C/O PAIN LATER IN SHIFT, GAVE PAIN MEDICATION NEEDED, PT SLEPT AND THANKED STAFF FOR ACKNOWLEDGING HIS PAIN. FAMILY VISITED. SOMETHING INTERESTING TO NOTE HE SPEAKS IN A NORMAL TONE OF VOICE THEN WHEN HE TALKS ON THE PHONE HE SPEAKS IN A CRYING VOICE. ENCOURAGED HIM AND FAMILY TO CALL FOR ANY NEEDS
[2018-12-31 16:53] VITALS: BP 113/65
[2018-12-31 20:30] VITALS: BP 110/60
[2018-12-31 23:25] VITALS: BP 99/47
--- NOTE | 2019-01-01 03:04 | NUR ---
ASSUMED PT CARE 1899. PT ALERT AND ORIENTED. REASSESSMENT COMPLETE. VSS. URINAL AT BEDSIDE. DENIES PAIN, ISSAC N/V. WORKING TOWARD POC. CALL LIGHT AND PERSONAL BELONINGS WITHIN REACH. WILL CONTINUE POC UNTIL EOS.
[2019-01-01 05:50] VITALS: BP 116/69
[2019-01-01 07:49] VITALS: BP 106/62
[2019-01-01 07:59] LABS: ALBUMIN 1.1 g/dL (3.4-5.0); CALCIUM 7.6 mg/dL (8.5-10.1); CREATININE 1.2 mg/dL (0.7-1.3); MAGNESIUM 1.8 mg/dL (1.8-2.4); PHOSPHORUS 2.4 mg/dL (2.5-4.9); POTASSIUM 3.8 mmol/L (3.5-5.1)
[2019-01-01 15:55] VITALS: BP 118/65
--- NOTE | 2019-01-01 19:40 | NUR ---
RESUMED CARE AT 0700, PATIENT STATED THAT HE WAS FEELING WELL THIS MORNING, BUT HE STARTED TO FEEL BETTER THROUGHOUT THE DAY. VITAL SIGNS STABLE, COMPLAINED OF PAIN AND THE PATIENT RECIEVED OXYCODONE WITH GOOD RELIEF. WOUND CARE COMPLETED. FAMILY AT BEDSIDE AND UPDATED. RIGHT PORT-A-CATH STILL IN PLACE. WILL CONTINUE TO MONITOR.
[2019-01-01 19:45] VITALS: BP 103/63
[2019-01-01 23:30] VITALS: BP 86/41
[2019-01-02 00:19] LABS: HEMATOCRIT 24.4 % (42.0-52.0); MCH 24.7 pg (26.0-34.0); MCHC 32.6 g/dL (28.0-37.0); MCV 75.8 fL (80.0-100.0); RBC 3.22 mil/uL (4.50-6.00); RDW 17.7 % (10.5-14.5); WBC 5.6 thou/uL (4.0-11.0)
[2019-01-02 00:27] LABS: CALCIUM 7.4 mg/dL (8.5-10.1); CREATININE 1.3 mg/dL (0.7-1.3); POTASSIUM 3.7 mmol/L (3.5-5.1)
[2019-01-02 01:15] VITALS: BP 110/57
--- NOTE | 2019-01-02 03:42 | NUR ---
ASSUMED PT CARE 1899. PT ORIENTED, LETHARGIC. REASESSMENT COMPLETE. VSS. CLOSELY MONITORING BP. MIDNIGHT BP LOW, PT TACHY. SEE CHARTING. DOCTOR CONTACTED. ORDERS FOR 500CC BOLUS AND STAT LABS RECEIVED. BP RECHECKED, STABLE. PT DENIED ANY SYMPTOMS. WORKING TOWARD POC. CALL LIGHT AND PERSONAL BELONINGS WITHIN REACH, WILL CONTINUE POC UNTIL EOS.
[2019-01-02 04:46] VITALS: BP 134/63
[2019-01-02 05:01] LABS: HEMATOCRIT 24.3 % (42.0-52.0); HEMOGLOBIN 7.9 gm/dL (14.0-18.0); MCH 24.6 pg (26.0-34.0); MCHC 32.5 g/dL (28.0-37.0); MCV 75.9 fL (80.0-100.0); RBC 3.21 mil/uL (4.50-6.00); RDW 17.3 % (10.5-14.5)
[2019-01-02 05:09] LABS: CALCIUM 7.9 mg/dL (8.5-10.1); CREATININE 1.1 mg/dL (0.7-1.3); MAGNESIUM 1.7 mg/dL (1.8-2.4); POTASSIUM 3.6 mmol/L (3.5-5.1)
[2019-01-02 07:13] VITALS: BP 115/69
[2019-01-02 15:33] VITALS: BP 11/67
--- NOTE | 2019-01-02 17:46 | NUR ---
Patient has been very lethargic during this shift. He has complained of pain to his coccyx area but, positioning has helped with this. Medication has been applied with relief noted from this as well. Patient complained of pain to his toe on left foot (only during wound care). Patient has denied the need for po pain medication. He walked today, using his walker et stand-by assist. He was given a bed bath as well. Patient was assisted to the toilet for BM x's 2. Family is at bedside. Will continue to monitor.
[2019-01-02 19:47] VITALS: BP 109/65
--- NOTE | 2019-01-02 22:00 | NUR ---
ASSESSMENT COMPLETED. PT IS ALERT AND ORIENTED.ATE SOME FOOD THAT BROUHT IN. PT IS AFEBRILE. ALERT AND CONVERSATIONAL. DENIES PAIN. SSD CRM APLIED TO COCCYX. PT REPOSITIONED. PASSING FLATUS. DENIES ANY N/V. APPETITE IS FAIR. PLAN FOR IR PROCEDURE TOMORROW.BLE ELEVATED.CALL LIGHT WITHIN REACH. WILL CONTINUE WITH POC TILL EOS.
[2019-01-03] VITALS (7 sets, daily range): BP systolic 105–120; BP diastolic 46–71
--- NOTE | 2019-01-03 08:31 | HC ---
[facility] [place] [address] CONSULTATION Name: CHRISTOPHER OLIVER Room #: 420-P [facility] IN .R.#: [id number] Admission: 12/20/18 Attend Phys: Emmanuel Carreon MD Discharge: Date of : 48 Report #: [id number] THIS REPORT FOR: //name// CC: Emmanuel Carreon DATE OF SERVICE: 12/30/2018 WOUND CARE CONSULTATION PERSONAL PHYSICIAN: Emmanuel Carreon MD CHIEF COMPLAINT: Left fourth toe ulceration and coccygeal ulcer. HISTORY OF PRESENT ILLNESS: This is a 68-year-old black male who is hospitalized now for bilateral lower extremity swelling and progressive weakness. The patient has been treated with diuretics for the edema, which is now improving. However, it was noted the patient had an ulceration on the base of his plantar left fourth toe of unknown etiology. The patient states that it does cause him some mild pain. He is unclear of how this has occurred. The patient also was noted to have a small pressure ulcer in his sacral region, which we have been asked to assist in care as well. The patient denies any previous wounds he could not heal on his own in the past. The patient states he does have mild pain in the sacral ulcer as well, which he describes as a burning type pain, worse when he lies on it but better when he is off of it on one side. PAST MEDICAL HISTORY: Significant for bilateral lower extremity edema, pancreatic cancer with status post Whipple procedure in 2018, diabetes, hypertension, peptic ulcer disease, chronic kidney disease, obstructive sleep apnea, atrial fibrillation, and previous CVA. CURRENT MEDICATIONS: Multiple, I reviewed the patient's medication list. DRUG ALLERGIES: None. SOCIAL HISTORY: The patient resides at home with his . Denies history of smoking or drinking alcohol. FAMILY HISTORY: Not pertinent to current medical condition. REVIEW OF SYSTEMS: CONSTITUTIONAL: The patient denies fevers or chills. NEUROLOGIC: The patient has overall generalized weakness, but no isolated weakness in arms or legs. EYES: No complaints. ENT: No complaints. CARDIAC: The patient has chronic lower extremity edema, which has been [facility] [address] [place] [address] CONSULTATION Name: CHRISTOPHER OLIVER Room #: 420-P [facility] IN M.R.#: [id number] Admission: 12/20/18 Attend Phys: Emmanuel Carreon MD Discharge: Date of : 48 Report #: [id number] progressively getting worse, but no chest pain or palpitations. RESPIRATORY: The patient denies shortness of breath, cough or wheezes. GASTROINTESTINAL: The patient denies nausea, vomiting, or abdominal pain. GENITOURINARY: The patient denies urgency or frequency. MUSCULOSKELETAL: No complaints. SKIN: There is a wound in the past on the plantar aspect of the left fourth toe as well as an ulceration in the coccygeal region. PHYSICAL EXAMINATION: VITAL SIGNS: Temperature 36.6, pulse 94, respirations 15, BP 115/69. GENERAL: This is an alert and oriented x 3, thin black male who is in no obvious distress. HEENT: Normocephalic, atraumatic. Mucous membranes are somewhat dry. Pupils are round. Sclerae white. NECK: Supple, nontender, without JVD. LUNGS: Clear. HEART: Irregularly irregular without murmur. ABDOMEN: Soft, nontender. EXTREMITIES: The patient has 1+ edema bilateral lower extremities with faint distal pulses. The plantar aspect of the left fourth toe is an open wound, which is clean and granulating, tender to palpation. There is minimal serosanguineous drainage without odor. The toe itself is minimally edematous. There is no involvement of deeper structures. No undermining or tunneling. Bilateral heels are intact. Rest of the left foot and right foot are all without any other associated ulcerations. Evaluation of sacral region reveals a stage 3 decubitus ulcer, which is fairly clean and granulating. Periwound is mildly macerated and tender. There is no undermining or tunneling. There is no involvement of deeper structures. Rest of the regions are without signs of pressure changes. NEUROLOGIC: Cranial nerves 2-12 grossly intact. Motor and sensory grossly intact. LABORATORY DATA: White count 5.6, hemoglobin 8.1. Creatinine 1.1. Albumin 1.1. IMPRESSION: 1. Chronic wound to the plantar aspect of the left fourth toe of unknown etiology. 2. Stage 3 sacral decubitus ulcer. 3. Concern for peripheral arterial disease. 4. Bilateral lower extremity edema -- improving. 5. History of pancreatic cancer, status post Whipple procedure. 6. Severe protein calorie malnutrition with albumin of 1.1. 7. Generalized debility. PLAN: At this time, we will start Aquacel Ag to the left plantar fourth toe [address] [address] CONSULTATION Name: CHRISTOPHER OLIVER Room #: 420-P [facility] IN M.R.#: [id number] Admission: 12/20/18 Attend Phys: Emmanuel Carreon MD Discharge: Date of : 48 Report #: [id number] ulceration, have this changed once daily. We will check an arterial Doppler to evaluate for underlying arterial disease. We will start zinc barrier cream to the sacral ulcer 3 times daily and p.r.n. We will place the patient on low air loss mattress and have him turn every 2 hours. We will make sure we maximize the patient's oral protein supplementation for healing. We will utilize physical and occupational therapy for strengthening. Continue all other current medications. We will continue to follow the patient. I appreciate the ability to consult. <ELECTRONICALLY SIGNED> By: Dany Tamez MD 01/03/19 0831 [id number] [id number] Dany Tamez MD /romel
--- NOTE | 2019-01-03 11:37 | NUR ---
WOUND CARE FOLLOW UP; ASSESSMENT OF THE LEFT 3RD AND 4TH TOE WOUND. FUR EXAMINER. THE WOUND IS STABLE AT THIS TIME. CONTINUE CURRENT TREATMENT. DISCUSSED WITH CHERI
--- NOTE | 2019-01-03 15:25 | NUR ---
FAXED CLINICAL UPDATE TO [facility] SPOKE WITH ELIAS IN ADMISSION AND SHE RECEIVED UPDATE AND WILL RESUBMIT FOR AUTH. DCP TO FOLLOW.
--- NOTE | 2019-01-03 19:06 | NUR ---
Patient had Angiogram today. He has been NPO until approximately 1800, when he awoke to ask for food. Patient's vital signs have been stable since arriving back from procedure. He has a Manx Closure to right side of groin; this is clean, dry et intact. Will report to oncoming nurse.
[2019-01-04 00:22] VITALS: BP 103/50
--- NOTE | 2019-01-04 01:28 | NUR ---
[facility]. PT ALERT AND ORIENTED. REASSESSMENT COMPLETE, VSS. MONITORING BP. DENIES PAIN, DENIES N/V. POSITION CHANGE Q2 HOURS. WORKING TOWARD POC. CALL LIGHT AND PERSONAL BELOGINGS WITHIN REACH, WILL CONTINUE POC UNTIL EOS.
[2019-01-04 05:13] VITALS: BP 108/60
[2019-01-04 05:51] LABS: HEMATOCRIT 23.6 % (42.0-52.0); MCH 25.2 pg (26.0-34.0); MCHC 33.7 g/dL (28.0-37.0); MCV 74.8 fL (80.0-100.0); RBC 3.16 mil/uL (4.50-6.00); RDW 17.7 % (10.5-14.5); WBC 4.8 thou/uL (4.0-11.0)
[2019-01-04 06:43] LABS: CALCIUM 7.6 mg/dL (8.5-10.1); CREATININE 1.1 mg/dL (0.7-1.3); POTASSIUM 3.1 mmol/L (3.5-5.1)
[2019-01-04 07:33] VITALS: BP 109/58
[2019-01-04 16:45] VITALS: BP 110/65
[2019-01-04 19:38] VITALS: BP 90/55
--- NOTE | 2019-01-04 19:54 | NUR ---
ASSUMED CARE OF PATIENT AT 0715, PATIENT ALERT AND ORIENTED X 4. PATIENT DENIES PAIN THIS SHIFT. PATIENT HAS RIGHT CHEST POC IN PLACE. POTASSIUM 3.1, RECEIVED POTASSIUM 20 MEQ X 1 THIS SHIFT. MAGNESIUM IVPB X 1 THIS SHIFT. PATIENT HAS DRESSING TO RIGHT GROIN AREA, STENT PLACED YESTERDAY. TURN Q2HRS, COCCYX AREA APLIED SILVADENE/MORPHINE AND Z-GUARD. LEFT 4TH TOE DRESSING DONE, HEALING. BLOOD SUGAR MONITORING ORDERED, INSULIN GIVEN PER S/S, LAST BS 305, RECEIVED 3 UNITS. POSSIBLE D/C TO [facility] TOMORROW. WILL CONTINUE TO MONITOR.
[2019-01-05] MEDS ORDERED: MIRALAX17 GM PO ×2 (01:54)
[2019-01-05] MEDS ORDERED: ASPIR 8181 MG PO (01:54)
[2019-01-05] MEDS ORDERED: CARVEDILOL3.125 MG PO (01:54)
[2019-01-05] MEDS ORDERED: LYRICA 50 MG50 MG PO (01:54)
[2019-01-05] MEDS ORDERED: SPIRONOLACTONE25 M1 PO (01:54)
[2019-01-05] MEDS ORDERED: TYLENOL EXTRA500 MG PO (01:54)
[2019-01-05] MEDS ORDERED: CARAFATE 11 GM/10 M1 PO (01:54)
[2019-01-05] MEDS ORDERED: ELIQUIS5 MG PO (01:54)
[2019-01-05] MEDS ORDERED: TORSEMIDE20 MG PO (01:54)
[2019-01-05] MEDS ORDERED: COLACE 100 MG100 MG PO (01:54)
[2019-01-05] MEDS ORDERED: LYRICA 75 MG CA75 MG PO (01:54)
[2019-01-05] MEDS ORDERED: NOVOLOG100 UNIT/1 SUBQ (01:54)
[2019-01-05] MEDS ORDERED: OXYCODONE HCL10 MG PO (01:54)
[2019-01-05 04:01] VITALS: BP 112/65
--- NOTE | 2019-01-05 05:52 | NUR ---
ASSUMED CARE AROUND 1900. AXOX3. CHEST PORT INTACT. L FOOT DRESSING CDI. WOUND CARE DONE TO COXYXX AREA WITH MORPHINR SILVERENE AND ZGUARD. PT TOLERASTED WELL. NO S/S ACUTE DISTRESS NOTED OR REPORTED AT THIS TIME. WILL CONT TO MONITOR FOR ANY CHANGES IN CONDITION.
[2019-01-05 08:23] VITALS: BP 104/63
[2019-01-05 08:50] VITALS: BP 104/63
[2019-01-05 12:06] LABS: HEMATOCRIT 25.5 % (42.0-52.0); HEMOGLOBIN 8.4 gm/dL (14.0-18.0)
[2019-01-05 12:18] LABS: CALCIUM 7.9 mg/dL (8.5-10.1); CREATININE 1.2 mg/dL (0.7-1.3); POTASSIUM 3.8 mmol/L (3.5-5.1)
--- NOTE | 2019-01-05 14:00 | NUR ---
[facility] ORDERS/SUMMARY TO FACILITY SPOKE WITH ELIAS IN ADM SHE RECEIVED ORDERS AND ARRANGED TRANSPORTATION BY [facility] FOR 1500 TODAY. NOTIFIED PT'S (VIDAL) OF DC AND TIME OF TRANSPORT SHE IS ON HER WAY TO [facility]OSP[facility]IAL TO HELP PT GET READY. UNIT NOTIFIED AND CHART COPY PER US. RN TO CALL REPORT TO [phone].
--- NOTE | 2019-01-13 19:29 | D ---
[facility] [place] [address] DISCHARGE SUMMARY Name: CHRISTOPHER OLIVER Room #: 420-P [facility] IN M.R.#: [id number] Admission: 12/20/18 Attend Phys: Emmanuel Carreon MD Discharge: 01/05/19 Date of : 46 Report #: [id number] THIS REPORT FOR: //name// CC: [facility] Surya Carreon DATE OF SERVICE: 01/04/2019 SUMMARY OF HISTORY AND PHYSICAL: Please see the review in the history and physical: The patient underwent a Whipple in 01/2018 at [facility] for stage IIB pancreatic cancer. There were no signs of invasion in the original path specimen and all resected lymph nodes were negative. He completed 4 of 6 planned cycles of adjuvant chemotherapy, but they were stopped because of his poor performance status. On 07/09/2018 he was admitted to [facility] because of progressive weakness from nausea, vomiting, decreased appetite and weight loss. He had fallen and hit his head. He was found to have active bile reflux gastritis because of the Whipple and responded to Carafate treatment. Since then his nausea, vomiting and poor appetite have improved significantly. However, on 07/26/2018, he was admitted because of another fall and found to have a small acute right stephens radiata embolic stroke with minimal weakness, from newly uncovered atrial fibrillation. He improved on therapies and was discharged on both Eliquis and aspirin. However, at home, he slowly lost strength. He developed significant lower extremity edema that got worse after his stroke. Lasix twice daily did not gain control of the therapy. His therapist arranged for a "fusion" compression pump and garment to the mid waist that also was unable to control his edema. He had multiple ER visits for weakness or falls or severe constipation. At home, his weakness progressed and a direct admission was made. SUMMARY OF HOSPITAL COURSE: He was seen in Nephrology consultation and found to have progressive anasarca. His albumin level was very low at 0.8. He was given intravenous furosemide together with a bottle of albumin IV 3 times a day for the next week. He was able to mobilize fluid and his edema improved. He continued on IV Lasix 3 times a day until he reached "dry weight" and was switched to oral torsemide. On 01-01-19 his blood pressure was a little low, and responded to iv fluid bolus. The torsemide was decreased from 40mg to 20mg/day. A CT scan of the chest, abdomen and pelvis again showed no evidence of return of the pancreatic cancer or metastatic disease. A CA 19-9 was also in the [facility] [address] [place] [address] DISCHARGE SUMMARY Name: CHRISTOPHER OLIVER Room #: 420-P [facility] IN M.R.#: [id number] Admission: 12/20/18 Attend Phys: Emmanuel Carreon MD Discharge: 01/05/19 Date of : 46 Report #: [id number] normal range and negative for active disease. With this news, he became more encouraged and started to eat better. According to his nutrition, the problem was found when his family would bring snacks. They brought the package of a [employer] Cupcakes where one cupcake had 200 mg of sodium (10% of his daily allowed) and only 1 gram of protein and he would typically not eat even a full cupcake, showing what he was actually eating was very low in nutritional value and explained his low albumin and also relatively very high in sodium which together with his low serum albumin made his edema impossible to control. He complained of his feet burning. Lyrica 75mg at 7 am and 100mg at bedtime gave good control of his neuropathy pain. He also took oxycodone 10mg at bedtime. As his edema improved, he became more encouraged and was able to walk 150 feet at times. As edema in his feet improved, he pointed out a painful left fourth toe, which was found to have several ulcers on it. This led to a vascular study, which showed significant peripheral arterial disease. On 01/03/2019, he underwent atherectomy and stent of subtotal occlusion of the mid left SFA. Moderate left popliteal and left posterior tibial artery stenoses were not critically flow limiting. The proximal right subtotal occlusion is scheduled to be treated on 01/17/2019 as detailed below. During this time, there were times when he would refuse to be repositioned at night. He did have a small gluteal fold decubitus on admission that was new and was found to have progressed slightly despite treatment in the hospital. He was anemic on admission with hemoglobin of 7.7, which dropped to 6.6 and he received 1 unit of blood in transfusion. Over the next several days, his hemoglobin mohit to 9.5. His iron levels were low and his stool was Hemoccult positive. Early in the spring, he had undergone an EGD, which did not show infection, which showed gastritis, but no evidence of ulcers or bleeding. It showed "wide open" bile gastric reflux. Surgical anastomosis was patent and intact with normal efferent and afferent limbs of the jejunum. Therefore, he underwent a colonoscopy on this admission, which was normal with the exception of small internal hemorrhoids, most likely the source for the Hemoccult positive stool. As his nutrition improved, he did not require another transfusion. He and his were instructed on a low sodium high nutritional diet by the dietitian. I reinforced this teaching by reviewing the food content labels of the snacks and treats that his family brought in to him, such as the [employer] Cupcakes mentioned above. He began eating more meat and seemed to enjoy it. [facility] [address] [place] [address] DISCHARGE SUMMARY Name: CHRISTOPHER OLIVER Room #: 420-P [facility] IN Diana.Lawrence.#: [id number] Admission: 12/20/18 Attend Phys: Emmanuel Carreon MD Discharge: 01/05/19 Date of : 46 Report #: [id number] His diabetes was managed with a custom sliding scale, brought from [facility] cotton broker and was effective. IMPORTANT LABORATORY DATA: Creatinine on admission was 1.5, and with diuresis improved to 1.1. At times his potassium had to be replaced and spironolactone was added. He required several doses of intravenous magnesium sulfate. On admission, his albumin was 0.8, and prior to discharge was 1.1. His EGFR was 56 on admission and 80 at discharge. His iron was low at 45. His white count remained in the normal range. Hemoglobin was 7.7 on admission, 6.6 several days later at which time 1 unit was transfused. It peaked at 9.5 and was stable at 8.0 prior to discharge. MCV was low, remained between 70 and 75. NOTE: He was given a total of 1000 mg of IV iron sucrose during his hospital stay. Ferritin was normal at 169. Folate normal at 14.3. Vitamin B12 was 1336. Hemoglobin A1c was 6.3, showing reasonable diabetic control. Random microalbumin of the urine was normal. CA 19-9 was 2 (0-35). Hemoglobin electrophoresis/solubility 07/29/2018 was normal. Urinalysis on admission was normal. Stool was Hemoccult positive. MRI of the head without contrast showed his old right stephens radiata infarct but no new abnormalities. CT scan of the chest, abdomen and pelvis with oral contrast showed coronary artery calcifications and his right chest port and was otherwise unremarkable except for widespread edema and ascitic fluid and anasarca. No evidence of metastatic disease was seen. Arteriogram showed significant disease on the right and on the left leg arterial tree. Superficial femoral artery atherectomy and stent placement was performed on the left. A thrombectomy was performed from the left superficial femoral artery as well. Renal arteriogram showed 2 right renal arteries and 1 left renal artery with mild plaque without stenosis. DISCHARGE DIAGNOSES: 1. Anasarca. 2. Very poor nutritional state from not eating, (after significant edema developed, there is edema in the gut as well, which made nutrition absorption and eating even more difficult). 3. Diet intake was found to be high in sodium and very low in protein and calories. 4. Edema was well controlled on oral medication prior to discharge. 5. Controlled severe bile reflux gastritis. 6. Anemia: iron deficient, likely nutritional, and from chronic disease. Iron was replaced with 1000mg venofer . Next step in evaluation would be of pill [address] [address] DISCHARGE SUMMARY Name: OLIVERCHRISTOPHER Room #: 420-P [facility] M.R.#: [id number] Admission: 12/20/18 Attend Phys: Emmanuel Carreon MD Discharge: 01/05/19 Date of : 46 Report #: [id number] capsule endoscopy. 7. Significant peripheral arterial disease of both the left and the right legs, adding to a nonhealing ulcer on the left toe and generalized leg muscle weakness. Atherectomy and stent performed on the left. The right is to be done on 01/17/2019. 8. No evidence of pancreatic cancer was found, CT scan was negative and CA 19-9 was also negative. 9. Type 2 diabetes managed with insulin. 10. Sacral decubitus developed and extended in the hospital. 11. At times, the patient's performance seemed erratic with being able to walk 150 feet one morning and then later that same day not being able to walk more than a few feet. He did seem much encouraged and to have a cheerful attitude along with significantly improved appetite at the end of his hospital stay. 12. Peripheral neuropathy from diabetes,burning in feet, controlled on current medications of lyrica 75mg am, lyrica 100mg pm, and oxycodone 10 at bedtime. 13. CAD without symptoms, dx'd from calcified coronary arterys seen on CT scan of chest. 14. A fib, rate control. 15. Recent embolic stroke. Orders and Plans: He is discharged to a senior living facility, [facility], for ongoing therapy and strengthening and management of his diuretics and electrolytes. He is to stop taking Eliquis with the last dose being on 01/13/2019 and he is to come to the [place] registration desk before 9:00 a.m. on 01/17/2019 to check in for arteriogram and treatment of the subtotal occlusions of the right leg arterial system. He is not to have anything to eat or drink from midnight the night before. He is not to have his diuretics or insulin the morning of the procedure. He is to have a strictly 2 g sodium limited diet, but to have high nutritional value and high protein. He can have Glucerna pudding and supplements between meals. He is to have a paper wound care instructions for his left fourth toe and his sacral decubitus ulcer and to continue to keep his heels elevated using PRAFO boots will allow to relieve the pressure on his heels. He is to continue with occupational therapy and physical therapy. He is to be turned every 2 hours while in bed and while sitting in a chair. MEDICATIONS: He is on a custom sliding scale insulin before meals and bedtime: 0-200, no insulin; 201-250, 1 unit of humalog/novalog; 251-300, 2 units; 301-350, 3 units; 351-400, 4 units; 401-450, 5 units; over 450, 6 units. [facility] [address] [place] [address] DISCHARGE SUMMARY Name: CHRISTOPHER OLIVER Room #: 420-P [facility] IN .R.#: [id number] Admission: 12/20/18 Attend Phys: Emmanuel Carreon MD Discharge: 01/05/19 Date of : 46 Report #: [id number] Eliquis 5 mg twice daily, Plavix 75mg/d, aspirin 81 mg daily, carvedilol 3.125 mg twice daily, silver sulfadiazine/ silvadine with morphine sulfate compounded applied to the sacral ulcer twice daily, torsemide 20 mg daily, spironolactone 25 mg daily, Colace 100 mg at bedtime, oxycodone 10 mg every 8 hours as needed for pain, MiraLax 34 g daily in the morning (double dose) with an extra 17 g at bedtime as needed for constipation. Lyrica 75 mg at 7 in the morning and 100 mg at bedtime. Sucralfate suspension 2 grams before meals and at bedtime. Tylenol prn. Lab: Complete metabolic profile, cbc, magnesium on 01-07-19 and followed. <ELECTRONICALLY SIGNED> By: Emmanuel Carreon MD 01/13/19 1929 0140 [id number] Emmanuel Carreon MD /nt
--- NOTE | 2019-01-13 19:29 | H ---
[facility] [place] [address] HISTORY AND PHYSICAL Name: BENITOCHRISTOPHER Room #: 420-P [facility] IN M.R.#: [id number] Admission: 12/20/18 Attend Phys: Emmanuel Carreon MD Discharge: 01/05/19 Date of : 46 Report #: [id number] THIS REPORT FOR: //name// CC: Emmanuel Carreon DATE OF SERVICE: 12/20/2018 CHIEF COMPLAINT: Progressive weakness, progressive anasarca and leg swelling. HISTORY OF PRESENT ILLNESS: The patient is 68 years old and underwent a Whipple for stage 2B pancreatic cancer in 01/2018 at [facility]. There were no signs of invasion on the original path specimen and all resected lymph nodes were also negative. He completed 4 or 6 subsequent cycles of chemotherapy, but they were stopped several cycles before their planned completion because of poor performance status. He was admitted to [facility] on July 09, 2018 because of progressive weakness from nausea, vomiting, decreased appetite and weight loss. He fell and hit his head. At that time, he was found to have active bile reflux gastritis because of his Whipple, and he started treatment with Carafate. Since then, his nausea, vomiting and decreased appetite have responded well, although it has taken some time to do so. July 26, 2018, he was admitted because of another fall, and this time was found to have an acute small right stephens radiata stroke with minimal weakness. The stroke was felt to be emboli from newly occurring atrial fibrillation. He did well with therapies and was discharged home on both Eliquis and aspirin. He had significant lower extremity edema at that time, and since then, his lower extremity edema has steadily progressed. He has been getting Lasix twice daily as a diuretic and home physical therapy. His therapist arranged for him to get a "fusion" compression pump and garment up to mid waist level to help with his lymphedema and edema. Using this garment an hour a day every day, has not significantly helped his edema, which in fact has steadily increased. He has had 4 Emergency Room visits since 07/2018 due to either weakness or falls or severe constipation. He was in the Emergency Room yesterday for weakness and discharged. However, at home, his weakness has progressed and a direct admission was made for today. PAST MEDICAL HISTORY: Acute 1.4 x 1.3 cm stroke in the right stephens radiata July 26, 2018 felt to be emboli from a newly presenting atrial fibrillation. Persistent severe bile reflux gastritis has improved with time and increase in his sucralfate medication. Severe malnutrition with an albumin of 1.4, 1.8. Chronic hypoproliferative anemia with low serum iron and low erythropoietin level. Orthostatic hypotension was active on July 26, 2018. Coronary artery disease has been manifested on the CT scan of his chest. History of colonoscopy [facility] [address] [place] [address] HISTORY AND PHYSICAL Name: CHRISTOPHER OLIVER Room #: 420-P [facility] IN .R.#: [id number] Admission: 12/20/18 Attend Phys: Emmanuel Carreon MD Discharge: 01/05/19 Date of : 46 Report #: [id number] 3 years ago where several polyps were removed. Sick euthyroidism. CURRENT MEDICATIONS: Furosemide 40 mg twice daily, gabapentin 300 mg in the morning and 600 mg at night, carvedilol 3.125 mg twice daily with meals, 81 mg aspirin once daily, Eliquis 5 mg twice daily, sucralfate 2 grams of the liquid before meals and at bedtime, insulin aspart by sliding scale, oxycodone IR 10 mg twice daily as needed for pancreatic cancer, propylene glycol, MiraLax for his constipation, Lactulose 60 mL every 2 hours until a bowel movement is produced also as needed for constipation, and Eliquis 5 mg twice daily. SOCIAL HISTORY: He does not drink nor smoke and he lives at home with his . He is retired. ALLERGIES: ____. REVIEW OF SYSTEMS: Constipation bothers him the most. PHYSICAL EXAMINATION: HEENT: Unremarkable. The oropharynx is normal and the oral mucosa is mildly dry. LUNGS: Clear. CARDIOVASCULAR: Heart tones are normal. ABDOMEN: Soft, nontender, without hepatosplenomegaly or masses. He is morbidly obese. SKIN: The skin of both heels is mildly soft. The rest of the skin is within normal limits. EXTREMITIES: Edema is marked beginning at the ankles and going up to about the umbilicus being approximately 4+ the entire length. LABORATORY DATA: The creatinine has gone up and his hemoglobin has gone down since his most recent admission. ASSESSMENT AND PLAN: 1. Increase in chronic edema that appears to be intractable. 2. Recurrent anemia with hemoglobin 7.7 today compared with 9.2 in the Emergency Room 46 hours ago. 3. Recent stroke 4. Failure to thrive since his Whipple; see Dr. Hernandez detailed review of his cancer and treatment in his consult of last admission. He is put at bed rest. Prafo boots are protecting early stage 1 breakdown on his heels. [facility] [address] [place] [address] HISTORY AND PHYSICAL Name: CHRISTOPHER OLIVER Room #: 420-P [facility] IN M.R.#: [id number] Admission: 12/20/18 Attend Phys: Emmanuel Carreon MD Discharge: 01/05/19 Date of : 46 Report #: [id number] Nephrology consultation is being requested for assistance in diuresis. <ELECTRONICALLY SIGNED> By: Emmanuel Carreon MD 01/13/19 1929 0013 0040 Emmanuel Carreon MD /nt
== END 2019-01-05 17:28 | DRG 270 ==
LOC: 4E 10:21
PROVIDERS: Internal Medicine; Internal Medicine Gastroenterology; Internal Medicine Nephrology; Nuclear Medicine Nuclear Cardiology; ADMIT Internal Medicine
DX: E11.51 Type 2 diabetes mellitus with diabetic peripheral angiopathy without gangrene (principal); E43 Unspecified severe protein-calorie malnutrition; L89.153 Pressure ulcer of sacral region, stage 3; K92.1 Melena; N04.9 Nephrotic syndrome with unspecified morphologic changes; C25.9 Malignant neoplasm of pancreas, unspecified; E11.621 Type 2 diabetes mellitus with foot ulcer; G47.33 Obstructive sleep apnea (adult) (pediatric); R62.7 Adult failure to thrive; D50.9 Iron deficiency anemia, unspecified; I25.10 Atherosclerotic heart disease of native coronary artery without angina pectoris; K21.9 Gastro-esophageal reflux disease without esophagitis; N18.9 Chronic kidney disease, unspecified; L89.301 Pressure ulcer of unspecified buttock, stage 1; E11.22 Type 2 diabetes mellitus with diabetic chronic kidney disease; L97.529 Non-pressure chronic ulcer of other part of left foot with unspecified severity; I95.9 Hypotension, unspecified; I77.1 Stricture of artery; K64.8 Other hemorrhoids; K59.00 Constipation, unspecified; E11.42 Type 2 diabetes mellitus with diabetic polyneuropathy; I48.91 Unspecified atrial fibrillation; Z68.27 Body mass index [BMI] 27.0-27.9, adult; Z79.82 Long term (current) use of aspirin; Z79.899 Other long term (current) drug therapy; Z86.73 Personal history of transient ischemic attack (TIA), and cerebral infarction without residual deficits; Z85.07 Personal history of malignant neoplasm of pancreas; Z86.718 Personal history of other venous thrombosis and embolism; I74.3 Embolism and thrombosis of arteries of the lower extremities; L89.151 Pressure ulcer of sacral region, stage 1
CPT/HCPCS: 10783; 62110; 62900; 70005

== ENCOUNTER → 2019-01-17 | Outpatient (CLI) | payer OTHER ==
[~2019-01-17] VITALS: Ht 180.3 cm; Wt 84.8 kg
[~2019-01-17] MED LIST changes: +CARVEDILOL3.125 MG PO; +LYRICA 50 MG50 MG PO; +LYRICA 75 MG CA75 MG PO; +SPIRONOLACTONE25 M1 PO; +TORSEMIDE20 MG PO
[2019-01-17 09:27] VITALS: BP 111/87
[2019-01-17 09:40] LABS: HEMATOCRIT 28.3 % (42.0-52.0); HEMOGLOBIN 9.2 gm/dL (14.0-18.0); MCH 24.5 pg (26.0-34.0); MCHC 32.4 g/dL (28.0-37.0); MCV 75.6 fL (80.0-100.0); RBC 3.74 mil/uL (4.50-6.00); RDW 17.3 % (10.5-14.5)
[2019-01-17 09:47] LABS: CALCIUM 8.1 mg/dL (8.5-10.1); CREATININE 1.2 mg/dL (0.7-1.3)
[2019-01-17 14:01] VITALS: BP 115/62
[2019-01-17 14:15] VITALS: BP 118/65
[2019-01-17 14:30] VITALS: BP 117/64
[2019-01-17 14:45] VITALS: BP 124/67
[2019-01-17 15:00] VITALS: BP 156/83
== END | disposition home or self-care (01) ==
LOC: CATH 08:53
PROVIDERS: Nuclear Medicine Nuclear Cardiology
DX: I70.211 Atherosclerosis of native arteries of extremities with intermittent claudication, right leg (principal); E11.40 Type 2 diabetes mellitus with diabetic neuropathy, unspecified; I12.9 Hypertensive chronic kidney disease with stage 1 through stage 4 chronic kidney disease, or unspecified chronic kidney disease; E11.22 Type 2 diabetes mellitus with diabetic chronic kidney disease; N18.9 Chronic kidney disease, unspecified; I48.91 Unspecified atrial fibrillation; E78.00 Pure hypercholesterolemia, unspecified; Z79.899 Other long term (current) drug therapy; Z85.07 Personal history of malignant neoplasm of pancreas; Z87.891 Personal history of nicotine dependence; Z79.01 Long term (current) use of anticoagulants; Z86.718 Personal history of other venous thrombosis and embolism

== ENCOUNTER 2019-06-16 15:10 | Inpatient (IN) | payer OTHER ==
[~2019-06-16] VITALS: Ht 180.3 cm; Wt 98.7 kg
[2019-06-16 19:20] VITALS: BP 119/64
[2019-06-16 22:35] VITALS: BP 120/66
[2019-06-17 06:19] LABS: ABSOLUTE NEUTROPHILS 4.6 thou/uL (1.4-8.2); BASOPHILS 0.2 % (0.0-2.0); EOSINOPHILS 0.3 % (0.0-3.0); HEMATOCRIT 25.5 % (42.0-52.0); MCH 22.5 pg (26.0-34.0); MCHC 31.5 g/dL (28.0-37.0); MCV 71.3 fL (80.0-100.0); MONOCYTES 11.4 % (1.0-8.0); PLATELET COUNT 179 thou/uL (150-400); POLYS 79.1 % (36.0-66.0); RBC 3.57 mil/uL (4.50-6.00); RDW 14.9 % (10.5-14.5); WBC 5.8 thou/uL (4.0-11.0)
[2019-06-17 06:57] LABS: ALBUMIN 0.9 g/dL (3.4-5.0); CALCIUM 6.9 mg/dL (8.5-10.1); CREATININE 1.8 mg/dL (0.7-1.3); POTASSIUM 3.1 mmol/L (3.5-5.1); TOTAL BILIRUBIN 0.4 mg/dL (<0.1-1.0); TOTAL PROTEIN 4.5 g/dL (6.4-8.2)
[2019-06-17 07:49] VITALS: BP 104/61
[2019-06-17 08:13] VITALS: BP 116/66
[2019-06-17 16:04] VITALS: BP 118/67
[2019-06-17 17:15] LABS: MAGNESIUM 1.2 mg/dL (1.8-2.4)
[2019-06-17 19:56] VITALS: BP 122/67
[2019-06-18 06:13] LABS: HEMATOCRIT 23.5 % (42.0-52.0); HEMOGLOBIN 7.5 gm/dL (14.0-18.0); MCH 22.6 pg (26.0-34.0); MCHC 31.7 g/dL (28.0-37.0); MCV 71.2 fL (80.0-100.0); RBC 3.31 mil/uL (4.50-6.00); RDW 15.2 % (10.5-14.5)
[2019-06-18 06:27] LABS: ALBUMIN 0.8 g/dL (3.4-5.0); CALCIUM 6.8 mg/dL (8.5-10.1); CREATININE 1.6 mg/dL (0.7-1.3); POTASSIUM 3.2 mmol/L (3.5-5.1); TOTAL BILIRUBIN 0.2 mg/dL (<0.1-1.0); TOTAL PROTEIN 4.2 g/dL (6.4-8.2)
[2019-06-18 06:30] LABS: % SATURATION 93 % (20-39); IRON 54 ug/dL (65-175); TIBC 58 ug/dL (250-450)
[2019-06-18 08:00] VITALS: BP 103/55
[2019-06-18 16:04] VITALS: BP 115/66
[2019-06-18 20:05] VITALS: BP 128/72
[2019-06-19 00:13] LABS: HEMATOCRIT 26.6 % (42.0-52.0); HEMOGLOBIN 8.4 gm/dL (14.0-18.0); MCH 22.5 pg (26.0-34.0); MCHC 31.4 g/dL (28.0-37.0); MCV 71.7 fL (80.0-100.0); RBC 3.71 mil/uL (4.50-6.00); RDW 15.2 % (10.5-14.5); WBC 6.2 thou/uL (4.0-11.0)
[2019-06-19 00:17] LABS: CALCIUM 7.1 mg/dL (8.5-10.1); CREATININE 1.7 mg/dL (0.7-1.3); POTASSIUM 3.9 mmol/L (3.5-5.1)
[2019-06-19 07:36] VITALS: BP 108/65
[2019-06-19 17:06] VITALS: BP 116/66
[2019-06-19 20:03] VITALS: BP 101/58
[2019-06-20 05:03] LABS: ALBUMIN 0.8 g/dL (3.4-5.0); CALCIUM 6.6 mg/dL (8.5-10.1); CREATININE 1.4 mg/dL (0.7-1.3); PHOSPHORUS 2.7 mg/dL (2.5-4.9); POTASSIUM 3.1 mmol/L (3.5-5.1)
[2019-06-20 06:36] LABS: URINE BILIRUBIN NEGATIVE (Negative); URINE BLOOD NEGATIVE (Negative); URINE CLARITY CLEAR; URINE COLOR YELLOW; URINE GLUCOSE-RANDOM* TRACE (Negative); URINE KETONES TRACE (Negative); URINE LEUKOCYTES-REFLEX NEGATIVE (Negative); URINE NITRITE-REFLEX NEGATIVE (Negative); URINE PROTEIN (DIPSTICK) NEGATIVE (Negative); URINE UROBILINOGEN 0.2 E.U./dl (0.2-1.0)
[2019-06-20 08:00] VITALS: BP 106/67
[2019-06-20 20:16] VITALS: BP 115/70
[2019-06-21 05:54] LABS: ALBUMIN 0.8 g/dL (3.4-5.0); CALCIUM 6.8 mg/dL (8.5-10.1); CREATININE 1.1 mg/dL (0.7-1.3); PHOSPHORUS 2.2 mg/dL (2.5-4.9); POTASSIUM 3.4 mmol/L (3.5-5.1)
[2019-06-21 09:07] VITALS: BP 119/68
[2019-06-21 20:25] VITALS: BP 105/58
--- NOTE | 2019-06-21 22:28 | HC ---
[facility] [place] [address] CONSULTATION Name: CHRISTOPHER OLIVER Room #: 461-P ADM IN M.R.#: [id number] Admission: 06/16/19 Attend Phys: Emmanuel Carreon MD Discharge: Date of : 46 Report #: [id number] THIS REPORT FOR: cc: Emmanuel Carreon MD, Stanley P. MD Geha, Daniel J. MD ~ CC: Emmanuel Carreon DATE OF SERVICE: 06/20/2019 INFECTIOUS DISEASE CONSULTATION REASON FOR CONSULTATION: I was asked to evaluate concerning fever. HISTORY OF PRESENT ILLNESS: A 68-year-old with a history of pancreatic cancer, status post Whipple procedure with malnutrition, congestive heart failure history has had significant peripheral edema. He has developed cellulitis to his right foot. Also had ulceration developed to the pretibial left lower leg. Also, has underlying diabetes. Presents on 06/16/2019 for better control of his edema and treat infection. He has been seen in consultation by GI service, cardiovascular medicine, wound care and Nephrology. He has had low-grade fever up to 100.8 degrees. Hemodynamically, he has been stable. His cellulitis by report has improved involving the right lower extremity. I discussed the case with wound care service today who felt that the wound to his left pretibial skin was clean with no evidence of infection. He has had no cough or sputum production. Denies any nausea, vomiting or diarrhea. No dysuria. He has had good urine output. Denies any chest pain. No other skin lesions. Denies any adenopathy or bleeding. REVIEW OF SYSTEMS: A 10-point review of system was negative other than what has been described above. ALLERGIES: None known. MEDICATIONS: Prior to his admission included insulin, torsemide, aspirin, carvedilol, Eliquis, now on vancomycin and ceftriaxone. PAST MEDICAL HISTORY: Pancreatic cancer, status post Whipple procedure, diabetes, peripheral vascular disease, peripheral edema, obstructive sleep apnea, hyperlipidemia, anemia, stroke and atrial fibrillation. FAMILY HISTORY: Noncontributory. SOCIAL HISTORY: Nonsmoker, with no significant alcohol intake. REVIEW OF SYSTEMS: Ten-point review was negative other than what has been [facility] [address] [place] [address] CONSULTATION Name: CHRISTOPHER OLIVER Room #: 461-P [facility] IN M.R.#: [id number] Admission: 06/16/19 Attend Phys: Emmanuel Carreon MD Discharge: Date of : 46 Report #: [id number] described above. PHYSICAL EXAMINATION: VITAL SIGNS: He is currently afebrile and hemodynamically stable. He was weak, but comfortable lying in bed. He is obese. -Maltese. SKIN: With dermatitis involving the right foot intertriginous regions predominantly second, third and fourth toes with some small eschar region along with erythema. Minimal drainage. Left lower extremity with pretibial wounds. These were clean with no surrounding cellulitis. He had 1+ venous stasis changes in both lower extremities. No palpable adenopathy. EYES: Without scleral icterus. MOUTH: Without mucositis. NECK: Supple. LUNGS: Clear. HEART: Regular, without murmur, gallop or rub. ABDOMEN: Obese, soft, nontender, no hepatosplenomegaly or mass appreciated. GENITOURINARY: External genitalia without lesion or mass. NEUROLOGIC: Cranial nerves intact. Strength in the upper and lower extremities was symmetric, although overall weak. Sensation in his toes was normal and symmetric. Pulses in his extremities palpable in the feet. LABORATORY STUDIES: Reviewed. MICROBIOLOGY: Reviewed. CT scan of his abdomen and pelvis reviewed. IMPRESSION: 1. History of pancreatic cancer, status post Whipple procedure with malnutrition and significant peripheral edema associated with a component of congestive heart failure and acute kidney injury. 2. Venous stasis ulcer involving the left pretibial leg. 3. Cellulitis complicating tinea pedis involving the right foot. 4. Low-grade fever, most likely related to his right foot cellulitis. So far no evidence of other intraabdominal infection, pneumonia or urinary tract infection. CT scan showed no evidence of recurrent malignancy. Drug fever seems less likely. We have culture from the right foot showing MRSA and Klebsiella. RECOMMENDATIONS: Agree with current antibiotic program. We will obtain blood cultures today. Continue with topical antifungal agent as well. Continue wound [address] [address] CONSULTATION Name: CHRISTOPHER OLIVER Room #: 461-P ADM IN M.R.#: [id number] Admission: 06/16/19 Attend Phys: Emmanuel Carreon MD Discharge: Date of : 46 Report #: [id number] care to the left leg. Follow up CBC and chemistry. Continue with pulmonary toilet. GI service is to assist with his malnutrition. <ELECTRONICALLY SIGNED> By: Xavi Colón MD 06/21/19 2228 [id number] [id number] Xavi Colón MD /nt
[2019-06-22 06:21] LABS: HEMATOCRIT 21.8 % (42.0-52.0); MCH 22.9 pg (26.0-34.0); MCV 71.5 fL (80.0-100.0); RBC 3.05 mil/uL (4.50-6.00); WBC 4.9 thou/uL (4.0-11.0)
[2019-06-22 06:58] LABS: ALBUMIN 0.7 g/dL (3.4-5.0); CALCIUM 6.7 mg/dL (8.5-10.1); CREATININE 1.1 mg/dL (0.7-1.3); MAGNESIUM 1.4 mg/dL (1.8-2.4); PHOSPHORUS 2.6 mg/dL (2.5-4.9); POTASSIUM 3.4 mmol/L (3.5-5.1)
[2019-06-22 07:59] VITALS: BP 114/60
[2019-06-22 14:09] VITALS: BP 120/65
[2019-06-22 14:43] LABS: HEMOGLOBIN 9.3 gm/dL (14.0-18.0)
[2019-06-22 20:31] VITALS: BP 98/58
[2019-06-22 23:55] VITALS: BP 82/43
[2019-06-23 01:39] VITALS: BP 104/68
[2019-06-23 06:43] LABS: ALBUMIN 0.7 g/dL (3.4-5.0); CALCIUM 6.9 mg/dL (8.5-10.1); CREATININE 1.2 mg/dL (0.7-1.3); PHOSPHORUS 2.5 mg/dL (2.5-4.9); POTASSIUM 3.9 mmol/L (3.5-5.1)
[2019-06-23 08:21] VITALS: BP 115/67
[2019-06-23 11:48] VITALS: BP 98/57
[2019-06-23 19:57] VITALS: BP 99/61
[2019-06-24 07:46] VITALS: BP 120/62
--- NOTE | 2019-06-24 08:13 | HC ---
[facility] [place] [address] CONSULTATION Name: CHRISTOPHER OLIVER Room #: 461-P ADM IN M.R.#: [id number] Admission: 06/16/19 Attend Phys: Emmanuel Carreon MD Discharge: Date of : 48 Report #: [id number] THIS REPORT FOR: cc: Emmanuel Carreon MD, Stanley P. MD Al-Absi, Ahmed I. MD ~ CC: Emmanuel Carreon REASON FOR CONSULTATION: Acute kidney injury. REASON FOR PRESENTATION: Bilateral lower extremity wounds. HISTORY OF PRESENT ILLNESS: This 68-year-old with a history of pancreatic cancer, status post Whipple procedure, received appropriate chemotherapy after his Whipple procedure. He is also known to have diabetes mellitus. He has had issues with edema in the past for which, we were consulted back in 12/2018. He presented for those lower extremity edema and was found to have an elevated creatinine. The patient's creatinine on presentation was 1.8. He is currently being evaluated by the wound care team. We were consulted to manage his edema. His creatinine has been trending down appropriately. PAST MEDICAL HISTORY: 1. AFib. 2. Cerebrovascular accident. 3. Anemia. 4. Hyperlipidemia. 5. Obstructive sleep apnea. 6. Pancreatic cancer. 7. Peripheral vascular disease. 8. Diabetes mellitus. MEDICATIONS: 1. Eliquis. 2. Carvedilol. 3. Aspirin. 4. Torsemide. 5. NovoLog. ALLERGIES: None. REVIEW OF SYSTEMS: GENERAL: No fever or chills. CARDIOVASCULAR: No chest pain or palpitation. PULMONARY: No cough or hemoptysis. GASTROINTESTINAL: No nausea or vomiting. GENITOURINARY: No frequency, no urgency. MUSCULOSKELETAL: As per the history of present illness. [facility] [address] [place] [address] CONSULTATION Name: CHRISTOPHER OLIVER Room #: 461-P [facility] IN M.R.#: [id number] Admission: 06/16/19 Attend Phys: Emmanuel Carreon MD Discharge: Date of : 46 Report #: [id number] FAMILY HISTORY: Significant for diabetes mellitus and hypertension. ALLERGIES: None. SOCIAL HISTORY: No drug or alcohol abuse. Resides in his own house. PHYSICAL EXAMINATION: GENERAL: He is alert, oriented, in no apparent distress. VITAL SIGNS: Blood pressure is 101/58. He is afebrile. HEAD AND NECK: No jugular venous distention. CHEST: No crackles. CARDIOVASCULAR: Regular with no rub. ABDOMEN: Soft, nontender. LOWER EXTREMITIES: +2 edema with extensive peripheral vascular changes. LABORATORY DATA: Reviewed. Hemoglobin is 8.4. Sodium is 137, potassium is 3.1, BUN is 20, and creatinine is 1.4. IMPRESSION AND PLAN: 1. Acute kidney injury. 2. Lower extremity edema. 3. Atrial fibrillation. 4. Peripheral vascular disease. 5. Anemia. 6. Diabetes mellitus. 7. Hypertension with low blood pressure reading. 8. Pancreatic cancer. 9. The patient's creatinine seems to be improving. Replace potassium. 10. His acute kidney injury is likely related to hypertension. His edema is multifactorial and unfortunately, this will not resolve completely with diuresis. He needs extensive nutritional counseling given his hypoalbuminemia. Continue with the current diuresis. Watch electrolytes. Limit salt intake. 11. His current wounds are being addressed by the wound care team and I see there is a plan for an aortogram with distal runoff for which we will have to monitor the patient's kidney function. <ELECTRONICALLY SIGNED> By: King Domingo MD 06/24/19 0813 0737 King Domingo MD /nt
[2019-06-24 11:10] VITALS: BP 107/63
[2019-06-24] MEDS ORDERED: LYRICA 75 MG CA75 MG PO (17:22)
[2019-06-24] MEDS ORDERED: DOXYCYCLINE 10100 M2 PO (17:22)
[2019-06-24] MEDS ORDERED: OXYCODONE HCL10 MG PO ×2 (17:22→17:43)
[2019-06-24] MEDS ORDERED: LANTUS SUBQ (17:22)
[2019-06-24] MEDS ORDERED: TORSEMIDE20 MG PO (17:22)
[2019-06-24] MEDS ORDERED: LYRICA 50 MG50 MG PO (17:22)
[2019-06-24 17:35] VITALS: BP 107/63
[2019-06-24 20:21] VITALS: BP 110/62
[2019-06-25 08:51] VITALS: BP 110/62
[2019-06-25 15:35] VITALS: BP 116/69
[2019-06-25 20:38] VITALS: BP 119/71
[2019-06-26 08:00] VITALS: BP 104/64
[2019-06-26 15:51] VITALS: BP 114/63
[2019-06-26 19:44] VITALS: BP 111/60
[2019-06-27 05:25] LABS: HEMATOCRIT 22.1 % (42.0-52.0); HEMOGLOBIN 6.9 gm/dL (14.0-18.0); MCH 23.1 pg (26.0-34.0)
[2019-06-27 05:32] LABS: MCHC 31.4 g/dL (28.0-37.0); MCV 73.5 fL (80.0-100.0); RBC 3.01 mil/uL (4.50-6.00); RDW 15.7 % (10.5-14.5); WBC 7.2 thou/uL (4.0-11.0)
[2019-06-27 06:07] LABS: ALBUMIN 0.7 g/dL (3.4-5.0); CALCIUM 7.1 mg/dL (8.5-10.1); CREATININE 1.3 mg/dL (0.7-1.3); POTASSIUM 3.4 mmol/L (3.5-5.1); TOTAL BILIRUBIN 0.2 mg/dL (<0.1-1.0); TOTAL PROTEIN 4.5 g/dL (6.4-8.2)
[2019-06-27 07:19] VITALS: BP 132/69
[2019-06-27 07:39] LABS: HEMATOCRIT 25.1 % (42.0-52.0); HEMOGLOBIN 7.8 gm/dL (14.0-18.0); MCH 22.9 pg (26.0-34.0); MCHC 30.9 g/dL (28.0-37.0); MCV 74.2 fL (80.0-100.0); RBC 3.39 mil/uL (4.50-6.00); RDW 15.6 % (10.5-14.5); WBC 7.2 thou/uL (4.0-11.0)
[2019-06-27 21:31] LABS: BE(vivo) 7.3 mmol/L (-2 to +3); HCO3 30.9 mmol/L (22.0-26.0); PCO2 39.1 mmHg (35.0-45.0); pH 7.515 (7.360-7.450); sO2 95.8 % (92.0-98.0)
[2019-06-28 08:02] VITALS: BP 127/65
[2019-06-28 16:42] VITALS: BP 139/81
[2019-06-28 21:12] VITALS: BP 126/63
[2019-06-29 07:14] VITALS: BP 100/56
[2019-06-29] MEDS ORDERED: OXYCODONE HCL10 MG PO (15:53)
[2019-06-29] MEDS ORDERED: HUMALOG100 UNIT/1 SUBQ (15:53)
[2019-06-29] MEDS ORDERED: ASPIR 8181 MG PO (15:53)
[2019-06-29] MEDS ORDERED: K-DUR 20 MEQ T20 MEQ PO (15:53)
[2019-06-29] MEDS ORDERED: CARVEDILOL3.125 MG PO (15:53)
[2019-06-29] MEDS ORDERED: DOXYCYCLINE HYC50 MG PO (15:53)
[2019-06-29] MEDS ORDERED: LYRICA 75 MG CA75 MG PO (15:53)
[2019-06-29] MEDS ORDERED: CARAFATE 11 GM/10 M1 PO (15:53)
[2019-06-29] MEDS ORDERED: COLACE 100 MG100 MG PO (15:53)
[2019-06-29] MEDS ORDERED: TORSEMIDE20 MG PO (15:53)
[2019-06-29] MEDS ORDERED: LYRICA 50 MG50 MG PO (15:53)
[2019-06-29] MEDS ORDERED: ELIQUIS5 MG PO (15:53)
[2019-06-29] MEDS ORDERED: MIRALAX17 GM PO (15:53)
[2019-06-29 19:15] VITALS: BP 120/75
[2019-06-30 07:27] VITALS: BP 112/63
[2019-06-30 11:46] LABS: HEMOGLOBIN 7.4 gm/dL (14.0-18.0)
[2019-06-30 11:49] LABS: ABSOLUTE RETIC COUNT 0.1005 10^6/uL; HEMATOCRIT 23.7 % (42.0-52.0); MCH 23.2 pg (26.0-34.0); MCHC 31.1 g/dL (28.0-37.0); MCV 74.6 fL (80.0-100.0); OBSERVED RETIC COUNT 3.17 % (0.6-2.6); RBC 3.17 mil/uL (4.50-6.00); RDW 17.1 % (10.5-14.5); WBC 7.4 thou/uL (4.0-11.0)
[2019-06-30 11:57] LABS: % SATURATION 55 % (20-39); IRON 30 ug/dL (65-175); TIBC 55 ug/dL (250-450)
[2019-06-30 11:59] LABS: ALBUMIN 0.8 g/dL (3.4-5.0); CALCIUM 6.7 mg/dL (8.5-10.1); CREATININE 1.3 mg/dL (0.7-1.3); POTASSIUM 4.2 mmol/L (3.5-5.1); TOTAL BILIRUBIN 0.3 mg/dL (<0.1-1.0); TOTAL PROTEIN 4.9 g/dL (6.4-8.2)
[2019-06-30 12:32] LABS: FOLIC ACID 18.2 ng/mL (8.6-58.9)
[2019-06-30 15:22] VITALS: BP 105/55
--- NOTE | 2019-07-01 07:37 | HC ---
[facility] [place] [address] CONSULTATION Name: CHRISTOPHER OLIVER Room #: 461-P ADM IN M.R.#: [id number] Admission: 06/16/19 Attend Phys: Emmanuel Carreon MD Discharge: Date of : 46 Report #: [id number] THIS REPORT FOR: cc: Emmanuel Carreon MD, Stanley P. MD McKittrick, Richard James MD ~ CC: Surya Tamez MD REASON FOR CONSULTATION: Anemia. HISTORY OF PRESENT ILLNESS: The patient is a 68-year-old gentleman who I had seen before with past history of pancreatic cancer with Whipple a little over a year ago. He also had a colonoscopy in 12/2018 that showed some small internal hemorrhoids, had an EGD in 07/2018 that showed some gastritis. Recently, he has had hemoglobin of 7.8 with an MCV of 74.2. Note that back in 07/04/2017, his hemoglobin was 12.7, platelets 331. MCV at that time was 71.7. Recent iron panel on 06/18/2019 showed an iron of 54, total TIBC 58, percent sat 93%. Coags were normal. Note that in the past, several years ago, he had an EPO level that was 10.8 when his hemoglobin was 8.1. PAST MEDICAL HISTORY: Notable for the history of the stage 1B pancreatic cancer; also history of hypertension; type 2 diabetes; history of DVT with PE, on Eliquis in the past; also history of gastritis. 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 MEDICATIONS: At this time currently include potassium chloride, doxycycline, lactulose, oxycodone immediate release, torsemide 40 daily, docusate 100 mg at bedtime, pregabalin 100 mg at bedtime, aspirin 81 daily, electrolytes, apixaban 5 mg b.i.d., carvedilol 3.125 b.i.d., insulin at various doses, sucralfate suspension AC and bedtime, pregabalin 75 mg daily. I think he is still on clopidogrel, also p.r.n. Tylenol and p.r.n. Zofran. PHYSICAL EXAMINATION: GENERAL: The patient appears his stated age. He is alert, lying in bed, family members present. Alert and oriented. VITAL SIGNS: Height is 5 feet 11 inches, 180 cm. Weight is reported as 202 pounds or 91 kilograms. Blood pressure 112/63, O2 sat 97, respirations 20 and temperature 97.7, pulse 77. LUNGS: Clear mostly, there may be some very soft rhonchi that clear on deep inspiration. [facility] [address] [place] [address] CONSULTATION Name: CHRISTOPHER OLIVER Room #: 461-P ADM IN M.R.#: [id number] Admission: 06/16/19 Attend Phys: Emmanuel Carreon MD Discharge: Date of : 46 Report #: [id number] HEART: Appears regular rate. ABDOMEN: Not specifically tender. EXTREMITIES: Does have a rapid for edema. ASSESSMENT AND PLAN: 1. Anemia, multifactorial, suspect that the patient did receive IV iron about 3 weeks ago and he has also had fairly normal B12 and folate, those are drawn that this will likely be related to his kidney function. We will await erythropoietin level. Note that his liver functions are normal, so I do not believe he is hemolyzing. Await multiple lab tests drawn including TSH, EPO level, folate, iron, EPO retic count, CMP, repeat CBC, will be available once he is returned. 2. History of Whipple procedure that may impair absorption. 3. Wound history. 4. Severe protein-calorie malnutrition; mild chronic kidney disease; electrolyte abnormalities; diabetes type 2; history of deep vein thrombosis, on Eliquis; history of atrial fibrillation; peripheral arterial disease. 5. Pancreatic cancer, stage 1B, no definite sign of recurrence. <ELECTRONICALLY SIGNED> By: Marques Addison MD 07/01/19 0737 0924 [id number] Marques Addison MD /nt
[2019-07-01 08:44] VITALS: BP 122/62
[2019-07-01] MEDS ORDERED: PANCREAZE DR 11 EAC2 PO (12:31)
[2019-07-01] MEDS ORDERED: KLOR-CON M2020 MEQ PO (12:31)
[2019-07-01] MEDS ORDERED: TORSEMIDE20 MG PO (12:31)
[2019-07-01] MEDS ORDERED: LACTULOSE20 GM/30 M PO (12:31)
[2019-07-01] MEDS ORDERED: LAMISIL AT 1% C12 G1 TOP (12:31)
--- NOTE | 2019-07-01 16:55 | HC ---
[place] [address] CONSULTATION Name: CHRISTOPHER OLIVER Room #: 461-P [facility] IN M.R.#: [id number] Admission: 06/16/19 Attend Phys: Emmanuel Carreon MD Discharge: Date of : 48 Report #: [id number] THIS REPORT FOR: cc: Emmanuel Carreon MD, Stanley P. MD Stephens, Thad A. MD ~ CC: Emmanuel Carreon DATE OF SERVICE: 06/17/2019 WOUND CARE CONSULTATION PERSONAL PHYSICIAN: Emmanuel Carreon MD CHIEF COMPLAINT: Lower extremity edema with ulcerations. HISTORY OF PRESENT ILLNESS: This is a 68-year-old black male who Dr. Carreon was asked to see for evaluation of chronic progressive lower extremity edema and ulcerations, which are weeping. The patient states this started several weeks ago and has been getting progressively worse with the swelling; however, the blisters just started within the past week. The patient supposedly has a sequential compression pumps at home for the edema, but has not been using them. The patient's family also states that the patient has been eating, has not been adhering to a low salt diet. The patient states he has never had ulcerations in the past. The patient denies any other associated wounds. PAST MEDICAL HISTORY: Significant for atrial fibrillation, chronic anemia, DVT, pancreatic cancer, status post Whipple procedure, small-bowel obstruction, previous CVA, protein-calorie malnutrition. CURRENT MEDICATIONS: Multiple, I reviewed the patient's medication list. DRUG ALLERGIES: None. SOCIAL HISTORY: The patient has a remote history of smoking. FAMILY HISTORY: Not pertinent to current medical condition. REVIEW OF SYSTEMS: CONSTITUTIONAL: The patient denies fevers or chills. NEUROLOGIC: The patient denies numbness, tingling, weakness in arms or legs, but does complain of mild generalized weakness. EYES: No complaints. ENT: No complaints. CARDIAC: The patient has chronic lower extremity edema, worse in the past several weeks, but denies chest pain or palpitations. [address] [place] [address] CONSULTATION Name: CHRISTOPHER OLIVER Room #: 461-[facility] IN M.R.#: [id number] Admission: 06/16/19 Attend Phys: Emmanuel Carreon MD Discharge: Date of : 48 Report #: [id number] RESPIRATORY: The patient denies actual shortness of breath, cough or wheezes. GASTROINTESTINAL: The patient denies nausea, vomiting or abdominal pain. GENITOURINARY: The patient denies urgency or frequency. MUSCULOSKELETAL: No complaints. SKIN: The patient has venous leg ulcerations bilaterally. PHYSICAL EXAMINATION: VITAL SIGNS: Temperature 37.4, pulse 110, respiratory rate 19, and BP 116/66. GENERAL: This is an alert and oriented x 3, pleasant black male who is in no obvious distress. HEENT: Normocephalic, atraumatic. Mucous membranes are dry. Pupils are round. Sclerae white. NECK: Supple, nontender. LUNGS: Slight diminished breath sounds heard throughout. HEART: Irregularly irregular. ABDOMEN: Soft, nontender. EXTREMITIES: The patient has 3+ edema bilateral lower extremities. There are multiple superficial ulcerations on bilateral lower extremities, left greater than right. There are no signs of __ cellulitis. Drainage is serosanguineous without odor. There is no tunneling or undermining. Periwound is edematous and lora-ulcerations edematous. Distal pulses are 1+. Bilateral heels, foot and toes are all without open ulcerations. NEUROLOGIC: Cranial nerves 2-12 grossly intact. Motor and sensory grossly intact. LABORATORY DATA: White count 5.8, hemoglobin 8.0, BUN 19, creatinine 1.8, and albumin 0.9. IMPRESSION: 1. Bilateral lower extremity edema, most likely multifactorial in nature. 2. Chronic multiple superficial ulcerations, bilateral lower extremities, left greater than right, without overt cellulitis. 3. Protein-calorie malnutrition severe with albumin 0.9. 4. History of pancreatic cancer, status post Whipple procedure. 5. Generalized debility. 6. Diabetes mellitus. PLAN: At this time, arterial Doppler will be checked to evaluate of how much compression, we can place on this patient. The patient does have a history of peripheral arterial disease with stent placement approximately 6 months ago. If the arterial Dopplers appeared to be within normal limits, we will go ahead and use Kerlix and Ramón from toes to knee on bilateral lower extremities. We will use Xeroform over the open ulcerations, cover with ABD. We will maximize patient's oral protein supplementation. [place] [address] CONSULTATION Name: CHRISTOPHER OLIVER Room #: 461-P ADM IN M.R.#: [id number] Admission: 06/16/19 Attend Phys: Emmanuel Carreon MD Discharge: Date of : 48 Report #: [id number] occupational therapy as able. We will continue all other current medications and continue to follow the patient. I appreciate the ability consult. <ELECTRONICALLY SIGNED> By: Dany Tamez MD 07/01/19 1655 1722 2240 Dany Tamez MD /nt
[2019-07-01 19:28] VITALS: BP 98/65
[2019-07-02 07:33] VITALS: BP 103/56
[2019-07-02 08:19] LABS: CALCIUM 7.6 mg/dL (8.5-10.1); CREATININE 1.3 mg/dL (0.7-1.3); MAGNESIUM 1.8 mg/dL (1.8-2.4); POTASSIUM 3.3 mmol/L (3.5-5.1)
[2019-07-02] MEDS ORDERED: GLUTOSE GEL 1515 G1 PO (14:21)
[2019-07-02] MEDS ORDERED: DEXTROSE 500.5 GM/M1 IV PUSH (14:21)
[2019-07-02] MEDS ORDERED: GLUCAGEN1 MG/1 ML IM (14:21)
[2019-07-02] MEDS ORDERED: TYLENOL EXTRA500 MG PO (14:21)
[2019-07-02] MEDS ORDERED: GENTAMICIN SULF15 GM TOP (14:21)
[2019-07-02] MEDS ORDERED: GLUCOSE4 GM PO (14:21)
[2019-07-02] MEDS ORDERED: OXYCODONE HCL10 MG PO (14:38)
[2019-07-02 19:55] VITALS: BP 158/92
[2019-07-03 08:25] VITALS: BP 121/66
[2019-07-03 14:20] VITALS: BP 112/65
[2019-07-03 14:49] LABS: PCO2 39.3 mmHg (35.0-45.0); PO2 72.3 mmHg (80.0-100.0)
[2019-07-03 14:50] LABS: BE(vivo) 7.6 mmol/L (-2 to +3); HCO3 31.2 mmol/L (22.0-26.0)
[2019-07-03 19:26] LABS: ALBUMIN 0.9 g/dL (3.4-5.0); ANION GAP < 0 mmol/L (7-16); BUN 39 mg/dL (7-18); CALCIUM 7.5 mg/dL (8.5-10.1); CHLORIDE 102 mmol/L (98-107); CO2 36 mmol/L (21-32); CREATININE 1.4 mg/dL (0.7-1.3); GLUCOSE 376 mg/dL (74-106); MAGNESIUM 1.7 mg/dL (1.8-2.4); PHOSPHORUS 2.2 mg/dL (2.5-4.9); SGOT 22 U/L (15-37); SGPT 27 U/L (30-65); SODIUM 137 mmol/L (136-145); TOTAL BILIRUBIN 0.1 mg/dL (<0.1-1.0); TOTAL PROTEIN 4.8 g/dL (6.4-8.2)
[2019-07-03 19:55] VITALS: BP 105/62
[2019-07-04 06:13] LABS: ALBUMIN 2.3 g/dL (3.4-5.0); CALCIUM 7.6 mg/dL (8.5-10.1); MAGNESIUM 1.4 mg/dL (1.8-2.4); PHOSPHORUS 2.6 mg/dL (2.5-4.9); TOTAL BILIRUBIN 1.1 mg/dL (<0.1-1.0); TOTAL PROTEIN 5.2 g/dL (6.4-8.2)
[2019-07-04 06:33] LABS: POTASSIUM 2.7 mmol/L (3.5-5.1)
[2019-07-04 08:00] VITALS: BP 109/58
[2019-07-04 17:00] VITALS: BP 141/76
[2019-07-04 19:38] VITALS: BP 100/54
[2019-07-05 06:25] LABS: CALCIUM 7.6 mg/dL (8.5-10.1); CREATININE 0.9 mg/dL (0.7-1.3); MAGNESIUM 1.3 mg/dL (1.8-2.4); PHOSPHORUS 2.5 mg/dL (2.5-4.9)
[2019-07-05 06:27] LABS: POTASSIUM 2.2 mmol/L (3.5-5.1)
[2019-07-05 07:20] VITALS: BP 105/61
[2019-07-05 15:00] VITALS: BP 101/50
[2019-07-05 19:53] VITALS: BP 128/66
[2019-07-06 00:06] VITALS: BP 114/69
[2019-07-06 03:45] VITALS: BP 110/56
[2019-07-06 04:47] LABS: RBC 2.68 mil/uL (4.50-6.00); WBC 6.9 thou/uL (4.0-11.0)
[2019-07-06 04:49] LABS: MCHC 32.1 g/dL (28.0-37.0); MCV 74.9 fL (80.0-100.0)
[2019-07-06 04:58] LABS: ALBUMIN 0.9 g/dL (3.4-5.0); CALCIUM 7.9 mg/dL (8.5-10.1); CREATININE 1.1 mg/dL (0.7-1.3); MAGNESIUM 2.6 mg/dL (1.8-2.4); PHOSPHORUS 2.4 mg/dL (2.5-4.9); POTASSIUM 4.4 mmol/L (3.5-5.1); TOTAL BILIRUBIN 0.2 mg/dL (<0.1-1.0)
[2019-07-06 05:28] LABS: HEMOGLOBIN 6.4 gm/dL (14.0-18.0)
[2019-07-06 07:48] VITALS: BP 122/67
[2019-07-06 13:16] VITALS: BP 121/67
[2019-07-06 19:21] VITALS: BP 98/50
[2019-07-06 20:08] LABS: HEMATOCRIT 23.7 % (42.0-52.0); HEMOGLOBIN 7.7 gm/dL (14.0-18.0)
[2019-07-07 07:44] LABS: HEMATOCRIT 22.9 % (42.0-52.0); HEMOGLOBIN 7.3 gm/dL (14.0-18.0)
[2019-07-07 07:45] VITALS: BP 124/76
[2019-07-07 07:57] LABS: CALCIUM 8.3 mg/dL (8.5-10.1); MAGNESIUM 2.6 mg/dL (1.8-2.4)
[2019-07-07 16:26] VITALS: BP 103/63
[2019-07-07 19:59] VITALS: BP 103/58
[2019-07-08 04:13] VITALS: BP 103/64
[2019-07-08 07:36] LABS: CREATININE 1.2 mg/dL (0.7-1.3); POTASSIUM 5.2 mmol/L (3.5-5.1)
[2019-07-08 08:11] VITALS: BP 133/72
[2019-07-08 12:15] LABS: HEMATOCRIT 23.6 % (42.0-52.0); HEMOGLOBIN 7.3 gm/dL (14.0-18.0); MCH 24.2 pg (26.0-34.0); MCV 78.3 fL (80.0-100.0); RBC 3.02 mil/uL (4.50-6.00); RDW 19.1 % (10.5-14.5); WBC 6.9 thou/uL (4.0-11.0)
[2019-07-08 12:28] LABS: ALBUMIN 0.9 g/dL (3.4-5.0); SGOT 23 U/L (15-37); SGPT 22 U/L (30-65); TOTAL BILIRUBIN < 0.1 mg/dL (<0.1-1.0); TOTAL PROTEIN 4.5 g/dL (6.4-8.2)
[2019-07-08 15:56] VITALS: BP 116/63
[2019-07-08 19:51] VITALS: BP 112/70
[2019-07-09 05:09] VITALS: BP 105/61
[2019-07-09 05:20] LABS: HEMATOCRIT 22.4 % (42.0-52.0); HEMOGLOBIN 7.2 gm/dL (14.0-18.0)
[2019-07-09 05:23] LABS: CALCIUM 8.2 mg/dL (8.5-10.1); CREATININE 1.2 mg/dL (0.7-1.3); MAGNESIUM 2.2 mg/dL (1.8-2.4); POTASSIUM 4.9 mmol/L (3.5-5.1)
[2019-07-09 07:58] VITALS: BP 110/66
[2019-07-09 16:43] VITALS: BP 91/52
[2019-07-09 18:53] VITALS: BP 104/60; BP 110/56
[2019-07-09 19:55] VITALS: BP 114/69
[2019-07-09 23:08] LABS: HEMATOCRIT 25.4 % (42.0-52.0); HEMOGLOBIN 8.1 gm/dL (14.0-18.0)
[2019-07-10 04:10] VITALS: BP 110/63
[2019-07-10 08:06] VITALS: BP 107/62
[2019-07-10 08:11] LABS: HEMATOCRIT 26.2 % (42.0-52.0); HEMOGLOBIN 8.4 gm/dL (14.0-18.0); MCHC 31.9 g/dL (28.0-37.0); MCV 78.4 fL (80.0-100.0); RBC 3.34 mil/uL (4.50-6.00); RDW 18.4 % (10.5-14.5); WBC 4.9 thou/uL (4.0-11.0)
[2019-07-10 08:18] LABS: CALCIUM 8.4 mg/dL (8.5-10.1); CREATININE 1.3 mg/dL (0.7-1.3); POTASSIUM 4.5 mmol/L (3.5-5.1)
[2019-07-10 17:36] VITALS: BP 126/70
[2019-07-10 19:43] VITALS: BP 95/51
[2019-07-11 03:32] VITALS: BP 111/65
[2019-07-11 08:00] VITALS: BP 118/67
[2019-07-11] MEDS ORDERED: BACTRIM DS TAB1 EACH PO (12:56)
[2019-07-11] MEDS ORDERED: ROXICODONE5 M2 PO (13:13)
[2019-07-11] MEDS ORDERED: HUMALOG100 UNIT/1 SUBQ (13:13)
[2019-07-11] MEDS ORDERED: MORPHINE 11 MG/2 ML TOP (13:13)
[2019-07-11] MEDS ORDERED: TORSEMIDE20 MG PO (13:15)
[2019-07-11 16:56] VITALS: BP 118/63
[2019-07-11 19:24] VITALS: BP 114/58
[2019-07-12 04:07] VITALS: BP 120/65
[2019-07-12 07:59] VITALS: BP 127/69
[2019-07-12 10:38] LABS: ALBUMIN 1.3 g/dL (3.4-5.0); CALCIUM 8.5 mg/dL (8.5-10.1); CREATININE 1.2 mg/dL (0.7-1.3); MAGNESIUM 2.4 mg/dL (1.8-2.4); PHOSPHORUS 5.1 mg/dL (2.5-4.9); POTASSIUM 5.1 mmol/L (3.5-5.1); TOTAL BILIRUBIN 0.4 mg/dL (<0.1-1.0); TOTAL PROTEIN 5.9 g/dL (6.4-8.2)
[2019-07-12 16:31] VITALS: BP 104/57
[2019-07-12 19:42] VITALS: BP 110/58
[2019-07-13 04:40] VITALS: BP 111/64
[2019-07-13 06:47] LABS: HEMOGLOBIN 7.8 gm/dL (14.0-18.0); MCH 24.8 pg (26.0-34.0); MCHC 31.3 g/dL (28.0-37.0); MCV 79.1 fL (80.0-100.0); RBC 3.16 mil/uL (4.50-6.00); RDW 18.8 % (10.5-14.5)
[2019-07-13 06:55] LABS: CALCIUM 8.3 mg/dL (8.5-10.1); CREATININE 1.2 mg/dL (0.7-1.3); MAGNESIUM 2.2 mg/dL (1.8-2.4); PHOSPHORUS 5.4 mg/dL (2.5-4.9); POTASSIUM 5.1 mmol/L (3.5-5.1)
[2019-07-13 07:46] VITALS: BP 100/60
[2019-07-13 16:16] VITALS: BP 122/72
[2019-07-13 21:22] VITALS: BP 110/63
[2019-07-14 04:15] VITALS: BP 114/65
[2019-07-14 04:48] LABS: CALCIUM 8.2 mg/dL (8.5-10.1); CREATININE 1.2 mg/dL (0.7-1.3); MAGNESIUM 2.1 mg/dL (1.8-2.4); POTASSIUM 4.9 mmol/L (3.5-5.1)
[2019-07-14 15:25] VITALS: BP 97/54
[2019-07-14 19:39] VITALS: BP 128/63
[2019-07-15 04:02] VITALS: BP 104/56
[2019-07-15 06:18] LABS: ABSOLUTE NEUTROPHILS 10.4 thou/uL (1.4-8.2); BASOPHILS 0.4 % (0.0-2.0); EOSINOPHILS 0.2 % (0.0-3.0); HEMATOCRIT 22.5 % (42.0-52.0); HEMOGLOBIN 7.1 gm/dL (14.0-18.0); LYMPHOCYTES 6.8 % (24.0-44.0); MCH 24.7 pg (26.0-34.0); MCHC 31.5 g/dL (28.0-37.0); MCV 78.2 fL (80.0-100.0); MONOCYTES 7.2 % (1.0-8.0); PLATELET COUNT 205 thou/uL (150-400); POLYS 85.4 % (36.0-66.0); RBC 2.88 mil/uL (4.50-6.00); RDW 17.7 % (10.5-14.5); WBC 12.2 thou/uL (4.0-11.0)
[2019-07-15 06:47] LABS: ALBUMIN 1.1 g/dL (3.4-5.0); CALCIUM 7.6 mg/dL (8.5-10.1); CREATININE 1.4 mg/dL (0.7-1.3); MAGNESIUM 2.1 mg/dL (1.8-2.4); PHOSPHORUS 5.3 mg/dL (2.5-4.9); POTASSIUM 4.8 mmol/L (3.5-5.1); TOTAL BILIRUBIN 0.3 mg/dL (<0.1-1.0); TOTAL PROTEIN 4.9 g/dL (6.4-8.2)
[2019-07-15 09:10] VITALS: BP 123/67
--- NOTE | 2019-07-15 11:00 | P ---
[facility] [place] [address] PROCEDURE REPORT Name: CHRISTOPHER OLIVER Room #: 354-P [facility] IN M.R.#: [id number] Admission: 06/16/19 Attend Phys: Emmanuel Carreon MD Discharge: Date of : 46 Report #: [id number] THIS REPORT FOR: cc: Emmanuel Carreon MD, Stanley P. MD Stephens, Thad A. MD ~ CC: Emmanuel Carreon DATE OF SERVICE: 07/01/2019 WOUND CARE PROCEDURE NOTE PERSONAL PHYSICIAN: Emmanuel Carreon M.D. CHIEF COMPLAINT: Necrotic left lower extremity ulcer. HISTORY OF PRESENT ILLNESS: This is a 68-year-old black male who is currently hospitalized for cellulitis of left lower extremity with necrotic eschar on the left lower extremity. We have been following the patient and it is now felt that the left lower extremity eschar would benefit from surgical debridement. PREPROCEDURE DIAGNOSES: 1. Necrotic left lower extremity ulcer. 2. Venous insufficiency with edema. 3. Peripheral arterial disease, status post bilateral leg interventions. POSTPROCEDURE DIAGNOSES: 1. Necrotic left lower extremity ulcer. 2. Venous insufficiency with edema. 3. Peripheral arterial disease, status post bilateral leg interventions. DESCRIPTION OF PROCEDURE: After timeout was taken, verbal consent was obtained. The patient had excisional debridement down to and including subcutaneous tissue of 100% of the ulcer. Predebridement measurements were 8.0 x 4.0 x 0.1 cm. Post-debridement measurements ____ 1% lidocaine with epinephrine was used prior to the ____ debridement. Bleeding was minimal, easily controlled with pressure. The patient tolerated the procedure quite well. Post-debridement, the patient had a Dakin's moist gauze placed over the ulceration. The patient once again tolerated procedure well. This is a 32 square cm excisional debridement of the subcutaneous tissue. <ELECTRONICALLY SIGNED> By: Dany Tamez MD 07/15/19 1100 1456 1902 Dany Tamez MD /nt
--- NOTE | 2019-07-15 15:21 | EKG ---
[facility] [place] [address] ELECTROCARDIOGRAM REPORT Name: CHRISTOPHER OLIVER Room #: 354-P ADM IN M.R.#: [id number] Admission: 06/16/19 Attend Phys: Emmanuel Carreon MD Discharge: Date of : 48 Report #: [id number] THIS REPORT FOR: cc: Emmanuel Carreon MD, Stanley P. MD Lundgren,Freddy Isaac MD [facility] ~ THIS REPORT FOR: //name// [facility] Test Date: 2019-06-17 Test Time: 16:28:27 Pat Name: CHRISTOPHER OLIVER Department: Room: 461 P Gender: Draw Hand: LASHELL : 1950 Requested By: Hoa Cevallos Order Number: [id number] MD: Freddy Virk Measurements Intervals [place] Rate: 93 P: 11 [place]: 158 QRS: 5 QRSD: 87 T: 62 QT: 374 QTc: 466 Interpretive Statements Sinus rhythm Atrial premature complex Low voltage, extremity leads Nonspecific T abnormalities Compared to ECG 12/12/2018 21:49:41 Atrial premature complex(es) now present Electronically Signed On 06-20-2019 7:19:37 C [employer] by Freddy Virk [email or web address] <ELECTRONICALLY SIGNED> By: Freddy Virk MD, [facility] 06/20/19 0719 1628 1628 Freddy Virk MD, [facility] /EPI
[2019-07-15 16:12] VITALS: BP 108/51
[2019-07-15 17:16] LABS: URINE BILIRUBIN NEGATIVE (Negative); URINE BLOOD NEGATIVE (Negative); URINE CLARITY CLEAR; URINE COLOR YELLOW; URINE GLUCOSE-RANDOM* 1+ (Negative); URINE KETONES NEGATIVE (Negative); URINE LEUKOCYTES-REFLEX NEGATIVE (Negative); URINE NITRITE-REFLEX NEGATIVE (Negative); URINE PROTEIN (DIPSTICK) NEGATIVE (Negative); URINE SPECIFIC GRAVITY 1.015 (1.005-1.035); URINE UROBILINOGEN 0.2 E.U./dl (0.2-1.0)
[2019-07-15 20:02] VITALS: BP 106/54
[2019-07-16] VITALS (7 sets, daily range): BP systolic 106–147; BP diastolic 53–81
[2019-07-16 08:35] LABS: CALCIUM 8.1 mg/dL (8.5-10.1); CREATININE 1.3 mg/dL (0.7-1.3); MAGNESIUM 1.9 mg/dL (1.8-2.4); PHOSPHORUS 4.2 mg/dL (2.5-4.9); POTASSIUM 4.5 mmol/L (3.5-5.1)
[2019-07-16 16:14] LABS: HEMATOCRIT 23.4 % (42.0-52.0); HEMOGLOBIN 7.3 gm/dL (14.0-18.0); MCH 24.9 pg (26.0-34.0); MCV 80.2 fL (80.0-100.0); PLATELET COUNT 201 thou/uL (150-400); RBC 2.92 mil/uL (4.50-6.00); RDW 18.9 % (10.5-14.5); WBC 6.2 thou/uL (4.0-11.0)
[2019-07-16 16:48] LABS: ANISOCYTOSIS 2+
[2019-07-16 16:49] LABS: HYPOCHROMASIA 1+
[2019-07-16 16:50] LABS: ABSOLUTE NEUTROPHILS 4.2 thou/uL (1.4-8.2)
[2019-07-17 05:30] LABS: BE(vivo) -2.4 mmol/L (-2 to +3); HCO3 21.7 mmol/L (22.0-26.0); PCO2 34.3 mmHg (35.0-45.0); PO2 84.3 mmHg (80.0-100.0); sO2 96.6 % (92.0-98.0)
[2019-07-17 05:46] LABS: ABSOLUTE NEUTROPHILS 10.4 thou/uL (1.4-8.2); BASOPHILS 0.6 % (0.0-2.0); EOSINOPHILS 0.6 % (0.0-3.0); HEMATOCRIT 24.5 % (42.0-52.0); HEMOGLOBIN 7.6 gm/dL (14.0-18.0); LYMPHOCYTES 7.6 % (24.0-44.0); MCH 24.6 pg (26.0-34.0); MCHC 31.3 g/dL (28.0-37.0); MCV 78.8 fL (80.0-100.0); MONOCYTES 9.6 % (1.0-8.0); PLATELET COUNT 195 thou/uL (150-400); POLYS 81.6 % (36.0-66.0); WBC 12.8 thou/uL (4.0-11.0)
[2019-07-17 06:03] LABS: ALBUMIN 1.1 g/dL (3.4-5.0); CALCIUM 8.1 mg/dL (8.5-10.1); CREATININE 1.2 mg/dL (0.7-1.3); MAGNESIUM 1.9 mg/dL (1.8-2.4); POTASSIUM 4.1 mmol/L (3.5-5.1); TOTAL BILIRUBIN 0.3 mg/dL (<0.1-1.0); TOTAL PROTEIN 5.2 g/dL (6.4-8.2)
[2019-07-17 06:19] VITALS: BP 106/64
[2019-07-17 07:32] VITALS: BP 151/70
[2019-07-17 15:44] VITALS: BP 95/58
[2019-07-17 20:28] VITALS: BP 110/61
[2019-07-18] VITALS (20 sets, daily range): BP systolic 88–179; BP diastolic 57–121
[2019-07-18 05:45] LABS: CALCIUM 7.9 mg/dL (8.5-10.1); CREATININE 1.1 mg/dL (0.7-1.3); MAGNESIUM 2.2 mg/dL (1.8-2.4); PHOSPHORUS 3.2 mg/dL (2.5-4.9); POTASSIUM 4.2 mmol/L (3.5-5.1)
[2019-07-18 08:42] LABS: ABSOLUTE NEUTROPHILS 4.4 thou/uL (1.4-8.2); BASOPHILS 0.4 % (0.0-2.0); EOSINOPHILS 1.1 % (0.0-3.0); HEMATOCRIT 32.4 % (42.0-52.0); LYMPHOCYTES 5.9 % (24.0-44.0); MCH 24.2 pg (26.0-34.0); MCHC 30.9 g/dL (28.0-37.0); MCV 78.2 fL (80.0-100.0); MONOCYTES 2.2 % (1.0-8.0); POLYS 90.4 % (36.0-66.0); RBC 4.15 mil/uL (4.50-6.00); RDW 18.1 % (10.5-14.5); WBC 4.8 thou/uL (4.0-11.0)
[2019-07-18 09:02] LABS: ANISOCYTOSIS 2+; PLATELET COUNT 198 thou/uL (150-400); PLATELET ESTIMATE NORMAL
[2019-07-18 15:38] LABS: URINE BILIRUBIN NEGATIVE (Negative); URINE BLOOD 1+ (Negative); URINE CLARITY SL CLOUDY; URINE COLOR YELLOW; URINE GLUCOSE-RANDOM* NEGATIVE (Negative); URINE KETONES NEGATIVE (Negative); URINE LEUKOCYTES-REFLEX NEGATIVE (Negative); URINE NITRITE-REFLEX NEGATIVE (Negative); URINE PROTEIN (DIPSTICK) NEGATIVE (Negative); URINE UROBILINOGEN 0.2 E.U./dl (0.2-1.0)
[2019-07-18 15:48] LABS: BACTERIA-REFLEX 1-9 Few /HPF (None Seen); CASTS None Seen /LPF (None Seen); SQUAMOUS 0-3 Few /LPF (0-3); URINE RBC 0-2 Rare /HPF (0-2); URINE WBC-REFLEX 0-5 Rare /HPF (0-5)
[2019-07-18 15:49] LABS: AMORPHOUS URATES Moderate /LPF (None Seen)
[2019-07-19] VITALS (64 sets, daily range): BP systolic 81–135; BP diastolic 47–75
[2019-07-19 06:39] LABS: CALCIUM 7.7 mg/dL (8.5-10.1); CREATININE 1.1 mg/dL (0.7-1.3); MAGNESIUM 1.9 mg/dL (1.8-2.4); PHOSPHORUS 2.7 mg/dL (2.5-4.9); POTASSIUM 3.8 mmol/L (3.5-5.1)
--- NOTE | 2019-07-19 09:54 | 2DMMODE ---
[facility] [place] [address] 2 D/M-MODE ECHOCARDIOGRAM Name: CHRISTOPHER OLIVER Room #: 240-P ADM IN M.R.#: [id number] Admission: 06/16/19 Attend Phys: Emmanuel Carreon MD Discharge: Date of : 48 Report #: [id number] THIS REPORT FOR: cc: Emmanuel Carreon MD, Stanley P. MD Lundgren, Craig H. MD [facility] ~ APPROVED REPORT Study performed: 07/19/2019 08:16:57 EXAM: Comprehensive 2D, Doppler, and color-flow Echocardiogram Patient Location: ICU Room #: 240 Status: routine BSA: 2.22 HR: 82 bpm BP: 83/50 mmHg Rhythm: NSR Other Information Study Quality: Good Indications Afib, VT, Bacteremia. 2D Dimensions RVDd: 32.41 mm IVSd: 13.86 (7-11mm) LVOT Diam: 21.82 (18-24mm) LVDd: 46.30 mm PWd: 10.91 (7-11mm) Ascending Ao: 31.45 (22-36mm) LVDs: 32.94 (25-40mm) Aortic Root: 36.51 mm Volumes Left Atrial Volume (Systole) Single Plane 4CH: 78.51 mL Single Plane 2CH: 61.70 mL LA ESV Index: 34.00 mL/m2 Aortic Valve AoV Peak Gabriele.: 2.79 m/s AO Peak Gr.: 31.16 mmHg LVOT Max P.99 mmHg AO Mean Gr.: 17.81 mmHg AO V2 Mean: 2.00 m/s LVOT Max V: 1.00 m/s AO V2 VTI: 55.25 cm [facility] [address] [address] 2 D/M-MODE ECHOCARDIOGRAM Name: CHRISTOPHER OLIVER Room #: 240-P [facility] IN [facility].#: [id number] Admission: 06/16/19 Attend Phys: Emmanuel Carreon, Discharge: Date of : 48 Report #: [id number] DANGELO Vmax: 1.34 cm2 Mitral Valve E/A Ratio: 0.9 MV Decel. Time: 137.73 ms MV E Max Gabriele.: 0.89 m/s MV A Gabriele.: 0.95 m/s MV PHT: 39.94 ms IVRT: 59.98 ms Pulmonary Valve PV Peak Gabriele.: 0.92 m/s PV Peak Gr.: 3.36 mmHg Pulmonary Vein P Vein S: 0.43 m/s P Vein A: 0.27 m/s P Vein D: 0.27 m/s P Vein A Dur.: 60.0 msec P Vein S/D Ratio: 1.59 Tricuspid Valve TR Peak Gabriele.: 2.86 m/s RAP Estimate: 10.00 mmHg TR Peak Gr.: 33.00 mmHg PA Pressure: 43.00 mmHg Left Ventricle The left ventricle is normal size. Mild basal septal hypertrophy is present. Left ventricular systolic function is mildly decreased. Hypokinesis of septum and anterior morrison LVEF is 45%. Mild diastolic dysfunction is present (impaired relaxation pattern). Right Ventricle The right ventricle is normal size. The right ventricular systolic function is normal. Atria Left atrium is mildly dilated. The right atrium size is normal. Aortic Valve The aortic valve is moderately calcified. Mild aortic regurgitation. There is mild to moderate valvular aortic stenosis. Calculated aortic valve area is 1.3 cm2 with maximum pressure gradient of 31 mmHg and mean pressure gradient of 18mmHg. Mitral Valve Moderate mitral annular calcification. Trace mitral regurgitation. No evidence of mitral valve stenosis. [facility] [address] [place] [address] 2 D/M-MODE ECHOCARDIOGRAM Name: CHRISTOPHER OLIVER Room #: 240-P [facility] IN M.R.#: [id number] Admission: 06/16/19 Attend Phys: Emmanuel Carreon, Discharge: Date of : 46 Report #: [id number] Tricuspid Valve The tricuspid valve is normal in structure. Mild to moderate tricuspid regurgitation. Estimated PAP is 40-45mmHg. Pulmonic Valve The pulmonary valve is normal in structure. Trace pulmonic regurgitation. Great Vessels The aortic root is normal in size. The ascending aorta is normal in size. IVC is dilated and collapses <50% with inspiration. Pericardium There is no pericardial effusion. <Conclusion> Left ventricular systolic function is mildly decreased. Hypokinesis of septum and anterior morrison LVEF is 45%. Mild diastolic dysfunction Left atrium is mildly dilated. The aortic valve is moderately calcified. Mild to moderate valvular aortic stenosis. Calculated aortic valve area is 1.3 cm2 with maximum pressure gradient of 31 mmHg and mean pressure gradient of 18mmHg. Moderate mitral annular calcification. Trace mitral regurgitation. Mild to moderate tricuspid regurgitation. Estimated pulmonary artery pressure of 40-45mmHg. There is no pericardial effusion. <ELECTRONICALLY SIGNED> By: Freddy Virk MD, FACC 07/19/1955 Freddy Virk MD, FACC /INF
[2019-07-20] VITALS (24 sets, daily range): BP systolic 84–141; BP diastolic 45–85
[2019-07-20 08:07] LABS: HEMATOCRIT 30.3 % (42.0-52.0); HEMOGLOBIN 9.3 gm/dL (14.0-18.0); MCH 23.9 pg (26.0-34.0); MCHC 30.6 g/dL (28.0-37.0); MCV 77.9 fL (80.0-100.0); RBC 3.88 mil/uL (4.50-6.00); RDW 18.3 % (10.5-14.5); WBC 12.1 thou/uL (4.0-11.0)
[2019-07-20 08:10] LABS: CALCIUM 8.5 mg/dL (8.5-10.1); CREATININE 1.3 mg/dL (0.7-1.3); POTASSIUM 3.8 mmol/L (3.5-5.1)
[2019-07-21] VITALS (24 sets, daily range): BP systolic 114–134; BP diastolic 59–76
[2019-07-21 09:42] LABS: ALBUMIN 1.1 g/dL (3.4-5.0); CALCIUM 8.6 mg/dL (8.5-10.1); CREATININE 1.3 mg/dL (0.7-1.3); PHOSPHORUS 3.5 mg/dL (2.5-4.9); POTASSIUM 3.8 mmol/L (3.5-5.1)
[2019-07-22] VITALS (24 sets, daily range): BP systolic 100–146; BP diastolic 49–78
[2019-07-22 04:39] LABS: CALCIUM 7.9 mg/dL (8.5-10.1); CREATININE 1.2 mg/dL (0.7-1.3); POTASSIUM 4.3 mmol/L (3.5-5.1)
[2019-07-22 12:33] LABS: BE(vivo) -2.8 mmol/L (-2 to +3); HCO3 20.6 mmol/L (22.0-26.0); PCO2 30.4 mmHg (35.0-45.0); PO2 63.6 mmHg (80.0-100.0)
[2019-07-22 12:34] LABS: sO2 93.5 % (92.0-98.0)
[2019-07-23] VITALS (24 sets, daily range): BP systolic 105–134; BP diastolic 51–71
[2019-07-23 04:52] LABS: ALBUMIN 0.9 g/dL (3.4-5.0); CALCIUM 8.4 mg/dL (8.5-10.1); CREATININE 1.1 mg/dL (0.7-1.3); PHOSPHORUS 3.9 mg/dL (2.5-4.9); POTASSIUM 3.4 mmol/L (3.5-5.1)
[2019-07-24] VITALS (23 sets, daily range): BP systolic 108–143; BP diastolic 51–79
[2019-07-24 06:18] LABS: CALCIUM 8.6 mg/dL (8.5-10.1); CREATININE 1.2 mg/dL (0.7-1.3); PHOSPHORUS 3.6 mg/dL (2.5-4.9); POTASSIUM 3.4 mmol/L (3.5-5.1)
[2019-07-25] VITALS (12 sets, daily range): BP systolic 111–123; BP diastolic 57–69
[2019-07-25 04:43] LABS: ABSOLUTE NEUTROPHILS 5.5 thou/uL (1.4-8.2); BASOPHILS 0.8 % (0.0-2.0); EOSINOPHILS 4.6 % (0.0-3.0); HEMATOCRIT 22.3 % (42.0-52.0); HEMOGLOBIN 7.1 gm/dL (14.0-18.0); MCH 24.7 pg (26.0-34.0); MCHC 31.9 g/dL (28.0-37.0); MCV 77.5 fL (80.0-100.0); MONOCYTES 6.3 % (1.0-8.0); PLATELET COUNT 260 thou/uL (150-400); POLYS 70.3 % (36.0-66.0); RBC 2.88 mil/uL (4.50-6.00); RDW 18.2 % (10.5-14.5); WBC 7.7 thou/uL (4.0-11.0)
[2019-07-25 04:54] LABS: CALCIUM 7.7 mg/dL (8.5-10.1); POTASSIUM 3.5 mmol/L (3.5-5.1); TOTAL BILIRUBIN 0.5 mg/dL (<0.1-1.0); TOTAL PROTEIN 4.8 g/dL (6.4-8.2)
[2019-07-25 05:23] LABS: BE(vivo) 0.9 mmol/L (-2 to +3); HCO3 25.4 mmol/L (22.0-26.0); PCO2 39.8 mmHg (35.0-45.0); pH 7.423 (7.360-7.450); sO2 97.2 % (92.0-98.0)
[2019-07-26] VITALS (16 sets, daily range): BP systolic 98–142; BP diastolic 44–76
[2019-07-26 04:38] LABS: POTASSIUM 3.4 mmol/L (3.5-5.1); TOTAL BILIRUBIN 0.5 mg/dL (<0.1-1.0); TOTAL PROTEIN 5.6 g/dL (6.4-8.2)
[2019-07-26 08:36] LABS: HEMATOCRIT 25.8 % (42.0-52.0); HEMOGLOBIN 8.1 gm/dL (14.0-18.0); MCH 24.3 pg (26.0-34.0); MCHC 31.5 g/dL (28.0-37.0); MCV 77.4 fL (80.0-100.0); RBC 3.34 mil/uL (4.50-6.00); RDW 18.3 % (10.5-14.5); WBC 7.1 thou/uL (4.0-11.0)
[2019-07-27] VITALS (7 sets, daily range): BP systolic 117–134; BP diastolic 63–69
[2019-07-27 06:25] LABS: CALCIUM 8.3 mg/dL (8.5-10.1); CREATININE 1.1 mg/dL (0.7-1.3); POTASSIUM 3.3 mmol/L (3.5-5.1); TOTAL BILIRUBIN 0.2 mg/dL (<0.1-1.0); TOTAL PROTEIN 5.6 g/dL (6.4-8.2)
[2019-07-27 06:48] LABS: HEMATOCRIT 25.5 % (42.0-52.0)
[2019-07-28] VITALS (7 sets, daily range): BP systolic 106–159; BP diastolic 55–75
[2019-07-28 05:44] LABS: CALCIUM 8.1 mg/dL (8.5-10.1); CREATININE 1.1 mg/dL (0.7-1.3); POTASSIUM 3.6 mmol/L (3.5-5.1)
--- NOTE | 2019-07-28 09:36 | TEE ---
[facility] [place] [address] TRANSESOPHAGEAL ECHOCARDIOGRAM Name: CHRISTOPHER OLIVER Room #: 206-P [facility] IN M.R.#: [id number] Admission: 06/16/19 Attend Phys: Emmanuel Carreon MD Discharge: Date of : 46 Report #: [id number] THIS REPORT FOR: cc: Emmanuel Carreon MD, Stanley P. MD Lundgren, Craig H. MD [facility] ~ APPROVED REPORT Study performed: 07/28/2019 08:02:22 EXAM: Transesophageal Echocardiogram Patient Location: [facility] Room #: 206 Status: routine BSA: 2.18 HR: 89 bpm BP: 124/68 mmHg Rhythm: NSR Other Information Study Quality: Good Indications Rule out vegetation. Hx: MRSA, bacteremia, Afib, CHF, CM. Echo Enhancing Agent Indication: Rule out Shunt Agent(s) / Amount(s) Used: Agitated Saline 6 cc Procedure After obtaining informed consent, patient underwent transesophageal echo in the [employer]. Type of Sedation : Conscious Sedation Sedation was achieved intravenously with: Versed (3) Fentanyl (50) Transesophageal probe was inserted and advanced into esophagus without difficulty by Freddy Virk MD. The NEY was performed without complications. Throughout the procedure, the blood pressure, pulse oximetry, cardiac rhythm, and rate were monitored. The patient tolerated the procedure without adverse effects. Recovery from conscious sedation was uneventful and vital signs were stable. [facility] [address] [place] [place] [address] TRANSESOPHAGEAL ECHOCARDIOGRAM Name: CHRISTOPHER OLIVER Room #: 206-P ADM IN M.R.#: [id number] Admission: 06/16/19 Attend Phys: Emmanuel Carreon, Discharge: Date of : 46 Report #: [id number] Left Ventricle The left ventricle is normal size. There is normal left ventricular wall thickness. Left ventricular systolic function is normal. LVEF is 50-55%. Right Ventricle The right ventricle is normal size. The right ventricular systolic function is normal. Atria Left atrium is mildly dilated. No thrombus is visualized in the left atrium or appendage. No shunting by contrast bubble injection. The right atrium size is normal. Aortic Valve The aortic valve is trileaflet, mildly calcified. Mild aortic regurgitation. Mild aortic stenosis. Mitral Valve Mild mitral annular calcification. Mild mitral regurgitation. No evidence of mitral valve stenosis. Tricuspid Valve The tricuspid valve is normal in structure. Mild tricuspid regurgitation. Pulmonic Valve The pulmonary valve is normal in structure. Trace pulmonic regurgitation. Great Vessels The aortic root is normal in size. Mild atherosclerotic plaque is present in the descending aorta. IVC is normal in size and collapses >50% with inspiration. Pericardium There is no pericardial effusion. Critical Notification Physician Notified <Conclusion> Left ventricular systolic function is normal. LVEF is 50-55%. Left atrium is mildly dilated. No thrombus is visualized in the left [facility] [place] [address] TRANSESOPHAGEAL ECHOCARDIOGRAM Name: CHRISTOPHER OLIVER Room #: 206-P ADM IN M.R.#: [id number] Admission: 06/16/19 Attend Phys: Emmanuel Carreon, Discharge: Date of : 46 Report #: [id number] atrium or appendage. No shunting by contrast bubble injection. The aortic valve is trileaflet, mildly calcified. Mild aortic regurgitation, mild stenosis (See transthoracic Doppler). Mild mitral annular calcification. Mild mitral regurgitation. There is no pericardial effusion. Pleural effusions present No vegetative lesions seen. <ELECTRONICALLY SIGNED> By: Freddy Virk MD, FACC 07/28/1937 4 4 Freddy Virk MD, FACC /INF
[2019-07-29 06:04] VITALS: BP 131/73
[2019-07-29 06:25] LABS: CREATININE 1.1 mg/dL (0.7-1.3); MAGNESIUM 1.6 mg/dL (1.8-2.4); PHOSPHORUS 3.2 mg/dL (2.5-4.9); POTASSIUM 4.1 mmol/L (3.5-5.1)
[2019-07-29 07:27] VITALS: BP 140/70
[2019-07-29 12:25] VITALS: BP 123/67
[2019-07-29 17:21] VITALS: BP 134/63
[2019-07-29 19:45] VITALS: BP 135/75
--- NOTE | 2019-07-30 01:39 | H ---
[facility] [place] [address] HISTORY AND PHYSICAL Name: CHRISTOPHER OLIVER Room #: 206-P ADM IN M.R.#: [id number] Admission: 06/16/19 Attend Phys: Emmanuel Carreon MD Discharge: Date of : 46 Report #: [id number] THIS REPORT FOR: //name// CC: Emmanuel Carreon CHIEF COMPLAINT: Progressive blisters in between the toes of the right foot and fluid oozing from the left calf with progressive swelling. HISTORY OF PRESENT ILLNESS: The patient has a history of multifactorial edema in his lower extremities related to sodium ingestion and lack of adequate protein and noticed several weeks ago that he had been having sweating a lot in his head and his legs were swelling with his heart rate being low when he came to the office on 06/09/2019. Swelling had returned approximately a month earlier, but was progressive instead of responding to increased doses of his torsemide. Exam of his left leg showed nonspecific fluid oozing from the calf and exam of his right foot showed areas of maceration in all the web spaces with exudate in the same web spaces. A culture returned MRSA and he came back again to reevaluate his therapy, this time on 06/16/2019. There was worse maceration between the toes of his right foot and more exudate and beginning signs of redness in the skin of the distal forefoot. There was fluid oozing from his left calf. The decision was made for in-hospital admission to gain control of the swelling in his feet. MEDICATIONS: His current medication list is aspirin 81 mg daily, Carafate suspension 20 mL 4 times a day and at bedtime, carvedilol 3.125 mg twice daily, lactulose 15 mL daily, docusate sodium 100 mg twice daily, Eliquis 5 mg twice daily, NovoLog FlexPen as needed and Levemir 5 units at bedtime. Oxycodone 10 mg 4 times daily as needed, polyethylene glycol 17 grams daily as needed, pregabalin 50 mg in the morning and 75 mg at bedtime, spironolactone 25 mg once daily, torsemide 20 mg once or twice daily, Tylenol Extra Strength with Basaglar 5 units at bedtime. SOCIAL HISTORY: He does not drink nor smoke, he lives in his own home with his and occasionally a son comes for a while. REVIEW OF SYSTEMS: Often times, he just sits, watching TV where he falls asleep in front of the television set. He does not move, but for hardly anything. PHYSICAL EXAMINATION: ____: Clear. HEART: Heart tones are normal. The heart rhythm is irregularly irregular. LUNGS: Clear. ABDOMEN: Soft, nontender, without hepatosplenomegaly or masses. EXTREMITIES: The lower extremities show marked peripheral edema. The feet have [id number] edema present. There is clear maceration tissue with small amount of blood oozing in the interdigital web spaces on the right foot. There is only a trace of ____ right foot has macerated areas of skin and debris in [address] [address] HISTORY AND PHYSICAL Name: CHRISTOPHER OLIVER Room #: 206-P [facility] IN M.R.#: [id number] Admission: 06/16/19 Attend Phys: Emmanuel Carreon MD Discharge: Date of : 46 Report #: [id number] between the toes. ASSESSMENT: 1. Edema, which has escaped control with edematous skin breakdown in between the toes of the right foot and fluid oozing from the left calf. 2. Multifactorial edema of venous insufficiency and previous hospital stay was felt to be due to noncompliance with salt restriction and not eating adequate protein. 3. Type 2 diabetes. 4. Whipple surgery for pancreatic cancer in the fall at [facility]. 5. Atrial fibrillation. 6. 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 7. Other medical problems as in the body of the report above. PLAN: He is being admitted for intravenous diuretics and careful clinical monitoring as diuretics are administered. <ELECTRONICALLY SIGNED> By: Emmanuel Carreon MD 07/30/19 0139 [id number] [id number] Emmanuel Carreon MD /nt
[2019-07-30 04:45] VITALS: BP 125/68
[2019-07-30 06:31] LABS: CALCIUM 7.8 mg/dL (8.5-10.1); CREATININE 1.1 mg/dL (0.7-1.3); MAGNESIUM 1.6 mg/dL (1.8-2.4); PHOSPHORUS 2.6 mg/dL (2.5-4.9); POTASSIUM 3.5 mmol/L (3.5-5.1)
[2019-07-30 08:05] VITALS: BP 127/64
[2019-07-30 11:35] VITALS: BP 122/66
[2019-07-30 17:36] VITALS: BP 118/61
[2019-07-30 22:16] VITALS: BP 128/69
[2019-07-31 04:45] VITALS: BP 137/75
[2019-07-31 05:33] LABS: HEMATOCRIT 25.7 % (42.0-52.0); HEMOGLOBIN 8.4 gm/dL (14.0-18.0); MCH 24.7 pg (26.0-34.0); MCHC 32.6 g/dL (28.0-37.0); MCV 75.7 fL (80.0-100.0); RBC 3.39 mil/uL (4.50-6.00); WBC 6.7 thou/uL (4.0-11.0)
[2019-07-31 07:40] VITALS: BP 129/66
[2019-07-31 08:44] LABS: CALCIUM 8.5 mg/dL (8.5-10.1); CREATININE 1.2 mg/dL (0.7-1.3); MAGNESIUM 1.6 mg/dL (1.8-2.4); PHOSPHORUS 2.7 mg/dL (2.5-4.9); POTASSIUM 3.8 mmol/L (3.5-5.1)
[2019-07-31 11:30] VITALS: BP 119/61
[2019-07-31 17:00] VITALS: BP 132/70
[2019-07-31 19:59] VITALS: BP 122/59
[2019-08-01 05:11] VITALS: BP 150/81
[2019-08-01 11:45] VITALS: BP 144/71
[2019-08-01 17:00] VITALS: BP 110/55
[2019-08-01 20:05] VITALS: BP 139/64
[2019-08-01 23:07] LABS: GLYCOHEMOGLOBIN (HGB A1C) 7.1 % (4.8-5.6)
[2019-08-02 04:00] VITALS: BP 139/74
[2019-08-02 05:34] LABS: HEMATOCRIT 24.8 % (42.0-52.0); HEMOGLOBIN 8.1 gm/dL (14.0-18.0); MCH 24.7 pg (26.0-34.0); MCHC 32.6 g/dL (28.0-37.0); MCV 75.8 fL (80.0-100.0); RBC 3.26 mil/uL (4.50-6.00); RDW 17.8 % (10.5-14.5); WBC 6.4 thou/uL (4.0-11.0)
[2019-08-02 05:45] LABS: ALBUMIN 1.2 g/dL (3.4-5.0); CALCIUM 8.6 mg/dL (8.5-10.1); CREATININE 1.2 mg/dL (0.7-1.3); MAGNESIUM 1.6 mg/dL (1.8-2.4); PHOSPHORUS 3.8 mg/dL (2.5-4.9); POTASSIUM 3.8 mmol/L (3.5-5.1)
[2019-08-02 08:30] VITALS: BP 154/92
[2019-08-02] MEDS ORDERED: LYRICA 75 MG CA75 MG PO ×2 (09:50)
[2019-08-02] MEDS ORDERED: OXYCODONE HCL 55 MG PO (09:50)
--- NOTE | 2019-08-02 11:06 | HC ---
[facility] [place] [address] CONSULTATION Name: CHRISTOPHER OLIVER Room #: 206-P ADM IN M.R.#: [id number] Admission: 06/16/19 Attend Phys: Emmanuel Carreon MD Discharge: Date of : 46 Report #: [id number] THIS REPORT FOR: cc: Emmanuel Carreon MD, Stanley P. MD Al-Mubaslat, Ahmad MD ~ CC: Emmanuel Carreon DATE OF SERVICE: 08/01/2019 ENDOCRINE CONSULTATION NOTE CONSULTING PHYSICIAN: Dr. Carreon. REASON FOR CONSULTATION: Uncontrolled type 2 diabetes mellitus, severe hyperglycemia. HISTORY OF PRESENT ILLNESS: This is a 68-year-old male patient whose medical background is significant for multiple significant medical issues including a history of pancreatic cancer, status post Whipple procedure in February 2019 with ensuing pancreatic insufficiency, malabsorption and intractable diarrhea. The patient is also known to have type 2 diabetes mellitus, chronic kidney disease, acute on chronic congestive heart failure, severe malnutrition, significant issues with sacral decubitus ulcers, bile acid reflux gastritis and anemia. The patient has also had issues with peripheral arterial disease requiring bilateral lytic interventions. The patient had a lengthy hospital stay and is currently being monitored for the issues of aspiration pneumonia and is under treatment with vancomycin and Unasyn, as well as paroxysmal atrial fibrillation and is being maintained on beta blockers and Eliquis, which was held recently. He has wide complex tachycardia and acute on chronic congestive heart failure issues that are being monitored by the Cardiology team. The patient has been maintained on TPN for nutrition as his p.o. intake has been rather poor and given the suspicion that he was not absorbing properly through his intestinal tract, which led to significant issues with malnutrition. This was associated with severe hyperglycemia issues despite include the inclusion of 20 units of regular insulin and TPN added yesterday as well as maintaining him on high dose insulin sliding scale. The patient's blood glucose values have persistently been above 300 mg/dL and occasionally over 400 mg/dL. When questioned about his diabetes history, the patient explained that this has been longstanding but was unable to provide details on his home based regimen. It appears that he is on a combination of insulin and oral antidiabetic agents; however. The patient is not known to have diabetic retinopathy, but has glaucoma. He reported significant peripheral neuropathy that is painful in disruptive. He is not aware of matters pertaining to coronary artery disease. [address] [address] CONSULTATION Name: CHRISTOPHER OLIVER Room #: 206-P [facility] IN M.R.#: [id number] Admission: 06/16/19 Attend Phys: Emmanuel Carreon MD Discharge: Date of : 46 Report #: [id number] REVIEW OF SYSTEMS: CONSTITUTIONAL: Fatigue, tiredness, intermittent issues with fever, no chills. HEENT: Negative for sore throat, sinus pain, ear drainage. PULMONARY: Occasional shortness of breath, dyspnea on exertion. No cough or hemoptysis. CARDIAC: Chronic congestive heart failure, lower extremity edema. MUSCULOSKELETAL: No chest pain, palpitations or syncope. GASTROINTESTINAL: Abdominal distention, abdominal discomfort, chronic diarrhea, occasional nausea and vomiting. NEUROLOGY: Severe peripheral diabetic neuropathy at baseline, mostly affecting lower extremities. No loss of consciousness or seizure activity. No frequent severe headaches. Otherwise, his review of systems noncontributory other than those mentioned in HPI. PAST MEDICAL HISTORY: 1. Type 2 diabetes mellitus. 2. Peripheral diabetic neuropathy. 3. Chronic kidney disease. 4. Pancreatic cancer, status post Whipple surgery. 5. Pancreatic insufficiency, chronic malabsorption and chronic diarrhea. 6. Acute on chronic heart failure. 7. Paroxysmal atrial fibrillation. 8. Sepsis. 9. Peripheral arterial disease. CURRENT MEDICATIONS: Include albuterol p.r.n.; Colace 100 mg at bedtime; losartan 25 mg daily; pregabalin 150 mg at bedtime; Unasyn; lipase, protease and amylase supplements; apixaban 5 mg b.i.d.; famotidine 20 mg b.i.d.; Humalog supplemental scale; high intensity lidocaine; metolazone; carvedilol 3.125 mg b.i.d. meals and pregabalin 75 mg q.a.m. ALLERGIES: No known drug allergies. FAMILY HISTORY: Noncontributory. SOCIAL HISTORY: The patient denies use of tobacco, alcohol or illicit drugs. PHYSICAL EXAMINATION: GENERAL: Pleasant male patient who is not in apparent pain or distress. VITAL SIGNS: Blood pressure is 144/71 mmHg, heart rate is 92 beats per minute, respirations 16 per minute, temperature 36.7 degrees. PSYCH: The patient is sitting upright in bed, appears lethargic, ill, but not in acute pain or distress. HEENT: Anicteric sclerae. Intact extraocular motions. NECK: Supple, no carotid bruits, no thyromegaly. [facility] [address] [place] [address] CONSULTATION Name: CHRISTOPHER OLIVER Room #: 206-P ADM IN M.R.#: [id number] Admission: 06/16/19 Attend Phys: Emmanuel Carreon MD Discharge: Date of : 46 Report #: [id number] CHEST: Noted for moderate entry bilaterally with scattered rales and rhonchi. HEART: Regular rate and rhythm without murmurs or gallops. ABDOMEN: Distended, but soft. No guarding. Active bowel sounds. EXTREMITIES: Lower extremity exam both lower extremities are in Aircast. Significant ankle edema noted. Stasis dermatitis. No open skin wounds. NEUROLOGIC: Awake, alert and oriented to time, place and person. The remainder of his examination is nonfocal other than for sensory deficits over both lower extremities. PSYCHIATRIC: Interactive, appropriate. Flat mood and affect. LABORATORY DATA: Blood glucose over the past 48 hours has been consistently over 250 mg/dL got as high as 422 mg/dL yesterday morning. There was no documented hypoglycemia. Prior to 07/29/2019 blood glucose values were consistently below 180 mg/dL for the most part. Sodium 135, potassium 3.8, chloride 100, CO2 of 33, anion gap 2, BUN 28, creatinine 1.2, glucose mentioned. AST 16, amylase 35, lipase 20, direct bilirubin 0.3, total bilirubin 0.2, calcium 8.5, phosphorus 2.7, magnesium 1.6, alkaline phosphatase 81, ALT 12, total protein 5.6, albumin 1.0. EGFR 73. Lactic acid 1.9. Ammonia 21. Total CPK 69. Total cholesterol 84, triglycerides 82, HDL 34, LDL 43. BNP 11,088. Free T4 1.2. INR 1.1. White blood count 6.7, hemoglobin 8.4, hematocrit 25.7, platelets 279. TSH is 0.127. Hemoglobin A1c in December 2018 was 6.3%. ASSESSMENT AND PLAN: 1. Type 2 diabetes mellitus. As noted in HPI, the patient has had a longstanding history of type 2 diabetes mellitus with end-organ complications including neuropathy and chronic kidney disease. The patient seems to have had an acute worsening of his glycemic control during his hospital stay in conjunction with the initiation of TPN support, which is to be expected given the down regulation of insulin receptors associated with the utilization of TPN. I agree with the addition of 20 units of human regular insulin to his TPN bag as of yesterday. This might need to be revised to a higher dose; however, since this is his first 24 hours on this approach, I would like to keep this in the same for the time being. I would like to tone down his Humalog supplemental scale support to moderate intensity to avoid hypoglycemia in association with high rapid acting insulin dosage. Also, I will add Lantus insulin at a dose of 20 units b.i.d. starting tonight. Additionally, I would like to continue to monitor his blood glucose values a.c. and at bedtime or q. 6 hours to continue to adjust his therapy as needed. Moreover, I would like to obtain a current hemoglobin A1c to get a better feel for his overall level of control recently. 2. Diabetic neuropathy. This is a longstanding issue with significant symptomatology. The patient is currently on pregabalin therapy and seems to be tolerating it well, he is to continue with the same. 3. Hypertension. The patient's level of blood pressure control is adequate on the current losartan regimen, he is to continue with the same. 4. Hyperthyroidism. The patient had a suppressed TSH with normal free T4, collectively consistent with a sick euthyroid syndrome. I do not propose [address] [address] CONSULTATION Name: CHRISTOPHER OLIVER Room #: 206-P [facility] IN M.R.#: [id number] Admission: 06/16/19 Attend Phys: Emmanuel Carreon MD Discharge: Date of : 46 Report #: [id number] further workup or active therapy for this issue at the time being. However, this might need to be reevaluated when the patient is more clinically stable. I have reviewed the patient's clinical care notes, laboratory data and other pertinent clinical information for over 35 minutes. I appreciate this consultation by Dr. Carreon. <ELECTRONICALLY SIGNED> By: Sobeida Panchal MD 08/02/19 1106 [id number] Sobeida Panchal MD /nt
[2019-08-02] MEDS ORDERED: LIDOPATCH1 EACH TRANSDERM (12:30)
[2019-08-02] MEDS ORDERED: BAYER CHEWABLE81 MG PO (12:30)
[2019-08-02] MEDS ORDERED: HUMALOG100 UNIT/1 SUBQ (12:30)
[2019-08-02] MEDS ORDERED: CARAFATE 11 GM/10 M1 PO (12:30)
[2019-08-02] MEDS ORDERED: ELIQUIS5 MG PO (12:30)
[2019-08-02] MEDS ORDERED: METOLAZONE 5 MG5 MG PO (12:30)
[2019-08-02] MEDS ORDERED: IPRAT-ALBUT 0.5-3 ML INH (12:30)
[2019-08-02] MEDS ORDERED: CARVEDILOL3.125 MG PO (12:30)
[2019-08-02] MEDS ORDERED: TYLENOL EXTRA500 MG PO (12:30)
[2019-08-02] MEDS ORDERED: LANTUS SUBQ (12:30)
[2019-08-02] MEDS ORDERED: UNASYN 3 GM VIAL3 G1 IV (12:30)
[2019-08-02] MEDS ORDERED: MIRALAX17 GM PO (12:30)
[2019-08-02] MEDS ORDERED: FAMOTIDINE20 MG/2 M2 IV PUSH (12:30)
[2019-08-02] MEDS ORDERED: PANCREAZE DR 11 EAC2 PO ×2 (12:30)
[2019-08-02] MEDS ORDERED: COZAAR 50 MG TA50 M1 PO (12:30)
[2019-08-02] MEDS ORDERED: FUROSEMIDE20 MG/2 ML IV PUSH (12:30)
--- NOTE | 2019-08-03 12:13 | D ---
[facility] [place] [address] DISCHARGE SUMMARY Name: CHRISTOPHER OLIVER Room #: 206-P [facility] IN M.R.#: [id number] Admission: 06/16/19 Attend Phys: Emmanuel Carreon MD Discharge: 08/02/19 Date of : 46 Report #: [id number] THIS REPORT FOR: cc: Emmanuel Carreon MD, Stanley P. MD Sharp, Stanley P. MD ~ THIS REPORT FOR: //name// CC: MARINA Carreon MD [facility] fax [phone] phone [phone] Seamus Tamez MD SUMMARY OF HISTORY AND PHYSICAL: The patient presented to my office with progressive blisters in between the toes of his right foot and with fluid oozing from several locations from his left calf all because of progressive edema in his lower extremities. He had been seen a month earlier and his diuretics were increased when he returned to the office on 06/16/2019. His swelling was actually worse despite the increase in diuretics. He developed areas of maceration and infection in between the toes of his right foot and also some broken down areas with increased swelling and fluid oozing in his left leg. MRSA was cultured from between his toes of the right foot. He required admission to the hospital for intravenous diuresis and careful attention to the infected fluid and ulcers of his leg and in between his right toes. SUMMARY OF HOSPITAL COURSE: He was admitted and placed on intravenous diuretics and his edema began to respond. However, at the same time, his home medications were resumed, one of which was sucralfate liquid 2 grams before each meal and bedtime. In the past, he had insisted that he needed this medication in the liquid form because of severe abdominal pain and bile reflux gastritis. For this reason, it was resumed. However, at the time of admission neither he nor his told us that at home, he had become accustomed to taking just 1 dose, perhaps every 2 or 3 days. Early in his hospital stay, he responded well to twice daily IV furosemide with his edema improving. His creatinine improved as well. He had a Cardiology evaluation, which showed mild diastolic heart failure and perhaps mild systolic [address] [address] DISCHARGE SUMMARY Name: CHRISTOPHER OLIVER Room #: 206-P [facility] IN ..#: [id number] Admission: 06/16/19 Attend Phys: Emmanuel Carreon MD Discharge: 08/02/19 Date of : 46 Report #: [id number] heart failure, but it was not severe, and was "OK". He had cellulitis in his right toes as well as his left leg and developed a fever up to 38 degrees centigrade. Infectious Disease consultation was obtained with Dr. Xavi Colón, and his antibiotics were adjusted. He was seen by Dr. Dany Tamez of the wound care service. His wounds began to improve, the bacteria in the wounds changed, and Dr. Colón readjusted the antibiotic coverage. Arterial Dopplers of his legs showed that his previous leg stents were open and the circulation was intact. His serum iron levels were low and hemoglobin seemed initially to respond to iron administration. His edema improved and cellulitis between the toes of his right foot and the ulcers of his left leg also improved, but he lost strength and stamina. His albumin dropped to 0.8. He was actually getting weaker. He was unable to lift his head off of the pillow without marked effort. 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 He was started on pancreatic enzyme replacement capsules. He did not improve, and therefore was started on TPN. After 3 days of TPN, he eventually began to increase in strength and mood and smile and became more talkative. DISCUSSION: At that time further information was obtained from the patient and most notably his family. It has been long known that he did not like meat in his diet that he preferred was high in carbohydrates and high in sodium and low in protein. His said in an exasperated moment that she would not allow him to eat the things were not good for him anymore. Also, they said that frequently he would have loose stools with undigested food in his stools, not previously reported, consistent with pancreatic insufficiency. Thirdly, they reported that he took a dose of sucralfate, perhaps only once every 3 days. We were under the impression from previous admissions that he has bile reflux gastritis was so severe that he required 2 grams of sucralfate with every meal and again at bedtime to control his symptoms. Therefore, when he was admitted to the hospital, he actually started receiving that high amount of sucralfate, which added to his malabsorption. He had peripheral edema and anasarca from his a result of his severely low albumin; therefore he had similar amount of edema throughout his intestinal tract that also impaired intestinal wall function and absorption. Therefore, he was actually in a progressive spiral of malnutrition from: [facility] [address] [place] [address] DISCHARGE SUMMARY Name: CHRISTOPHER OLIVER Room #: 206-P [facility] IN [facility]#: [id number] Admission: 06/16/19 Attend Phys: Emmanuel Carreon MD Discharge: 08/02/19 Date of : 46 Report #: [id number] 1. Previously unrecognized pancreatic insufficiency. 2. Excessive administration of sucralfate, which binds up nutrients and inhibited absorption. 3. Gut edema, extensive enough that it also impaired absorption. 4. His hemoglobin dropped to 6.5, impairing circulation to the Gut. With all these factors combined it was determined he had very severe malnutrition. His dramatic response to just 3 days of TPN confirmed this impression. Therefore, the decision was made to persist with TPN until adequately nutritionally repleted that he was making his own serum proteins and albumin, and there would be no anasarca or gut edema, and he absorb oral nutrition adequately. FURTHER HOSPITAL COURSE: Unfortunately, he then developed a high-grade bacteremia with lactobacillus rhamnosus. This was positive in multiple blood cultures, and his port was felt to be the source. His port was removed and the port tip was cultured positive. His port was removed on 07/19/2019. Two blood cultures on 07/20/2019 were still positive, one blood culture on 07/22/2019 was still positive, but the blood cultures of 07/25/2019 remained negative at 5 days and on 07/31/2019, the final results were reported as being negative. A NEY was negative. An internal jugular catheter was placed on 07/30/2019 and TPN was started. Since then he has slowly regained in strength. With resumption of TPN his blood sugars have been quite high, the pharmacy has slowly added insulin to his TPN. He was seen in consultation on 08/01/[address] Panchal who very nicely summarized his clinical condition, decreased his sliding scale insulin from high to moderate dose and added Lantus 20 units twice daily to provide steady background of insulin. During the time that he was actively bacteremic, he was transferred to the Intensive Care Unit and placed on vasopressors and fluid. He developed pulmonary infiltrates and his peripheral edema returned to some degree from the fluid resuscitation. He was felt to have hospital-acquired pneumonia, breifly required BiPAP and supplemental oxygen. At the time of discharge, he no longer required oxygen, although his pulmonary infiltrates persist to some degree. He still eats minimally to moderately well some days and other days, continues to eat poorly. He continues to have difficulty with actually eating meat and prefers his mashed potatoes. He also has been drinking Ensure and Glucerna and Guy protein powder supplement. Note is made that each box of Glucerna or Ensure contains 250 mg of sodium and although he may consume up to 4 of these boxes a day that provides him an undesirable 1000 mg of sodium. When in the Intensive Care Unit, immediately after his port was removed, a [address] [address] DISCHARGE SUMMARY Name: CHRISTOPHER OLIVER Room #: 206-P [facility] IN ..#: [id number] Admission: 06/16/19 Attend Phys: Emmanuel Carreon MD Discharge: 08/02/19 Date of : 46 Report #: [id number] Dobbhoff was placed with the recommendation of the chassis wirer that 20 mL of the tube feeding be infused continually and then that would help stimulate development of his intestinal cellular structure and absorption. However, the day after the Dobhoff was placed, he gagged on the Dobbhoff and partially pulled it out, and so it had to be removed. IMPORTANT LABORATORY DATA TO THIS POINT OF HIS HOSPITAL STAY: His creatinine was 1.8 on admission and with diuresis, it is currently stable at 1.1. His BUN was 19 on recent reflecting a poor nutritional state, and currently is 28. His albumin was 0.9 on admission and dropped to a low of 0.7. Currently, his albumin is 1.0. His prealbumin was 9.2 on admission and mohit to 17.7 after TPN was started and then dropped to 7.7 when the TPN was halted because of his bacteremia. His hemoglobin A1c measured today was 7.1. CA 19-9 was drawn today and is pending. RADIOLOGY SUMMARY: Chest x-ray from 08/01/2019 shows persistent bilateral scattered mixed interstitial and alveolar infiltrates, most prominent in the upper lobes without change and a suggestion of possible underlying pulmonary fibrosis. A left upper extremity venous duplex showed normal flow in the deep veins and normal flow in the internal jugular and subclavian veins and deep veins left arm, but there is a thrombus in the left cephalic vein at the level of the elbow and the shoulder, which would be considered a superficial thrombus. CT scan of the abdomen and pelvis showed bilateral pleural effusions with atelectasis in the lower lobes bilaterally. There was a significant colon stool burden with fecaloma seen in the rectal vault with rectal distention 6.5 cm and some abnormal colonic bowel wall thickening and diffuse anasarca of the abdominal wall. No evidence of pancreatic tumor recurrence. NOTE: The day following this CT I performed a rectal exam and no fecal masses were identified within the reach of my finger. He continued to have soft bowel movements. Three views of the right toes of the plain film showed no evidence of fracture and no evidence of osteomyelitis. Arterial Doppler of both lower extremities showed the previous stents to be open, with triphasic flow from both groins down to both distal posterior tibial arteries with monophasic waveforms in the foot suggesting distal small vessel disease, more on the right anterior tibial artery. Video swallow by speech therapy showed mild dysphagia with no aspiration and recommended a mechanical soft diet with thin liquids. Recommended pills to be taken in pudding and to stay upright after eating to chew softly with [facility] [address] [place] [address] DISCHARGE SUMMARY Name: CHRISTOPHER OLIVER Room #: 206-P [facility] IN M.R.#: [id number] Admission: 06/16/19 Attend Phys: Emmanuel Carreon MD Discharge: 08/02/19 Date of : 46 Report #: [id number] effortful swallows and no mixed consistencies. Transesophageal Echocardiogram almost normal with EF of 50-55%, normal LV and RV, mild LA enlargement, mild MR, no MS, mild AI no , trace pulmonary regurgitation. No pericardial effusion. Bilateral pleural effusions present. No vegetations. DISCHARGE DIAGNOSES: 1. Occult malabsorption syndrome resulting in severe malnutrition -- see discussion above. 2. Edema from the malabsorption syndrome led to profound anasarca as shown on CT scans and clinically with swelling in his legs and arms and feet and toes. Also pleural effusions abdominal wall edema and colon wall thickening, scrotal and penile edema. 3. Wounds of the left leg and of the right toes caused by the severe edema. 4. Stage IIB pancreatic cancer in 2018 followed by Perez Crocker MD, [facility]. Prognosis at this point is good, perhaps 50%, survival. April [address] scans and CA 19-9 were free of disease. Next complete evaluation for July 2019. CA 19-9 pending from [facility] 5. Health care acquired pneumonia related to septicemia in the intensive care unit is responding to therapy. 6. Wounds of the toes and the left leg are responding very well to therapy. 7. The patient underwent sharp debridement of the wound in the left lower leg by Dr. Tamez during the hospital stay. 8. Patient factor: Significant resistance from the patient to meat and a high protein, low sodium diet that is necessary to maintain his nutrition and control his edema. 9. Type 2 diabetes with peripheral neuropathy. 10. Sick euthyroid with suppressed TSH and normal free T4. 11. Paroxysmal atrial fibrillation, currently in sinus rhythm. 12. Occipital embolic stroke in the spring resulting in decreased vision. 13. High-grade bacteremia necessitated the removal of his port. 14. Hypoproliferative anemia from poor nutrition. Recieved 3 units during this hospital stay. To be transfused for Hb below or close to 7 per needle molder. 15. Cellulitis right toes and left leg ulcers - much improved. 16. 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 16. Other medical problems as above. PLAN: Please see the specific medication list accompanying this dictation. The patient is to receive TPN until he is nutritionally replete and able to maintain adequate nutrition absorption orally. Pancreatic replacement enzymes are to be given with each meal and with each snack. He is to be engaged by helping choose choices from the menu that are appealing and that he can tolerate that are high in protein and low in sodium and low in carbohydrates. Note that each Glucerna box has 250mg sodium, but he drinks it. Guy protein packs 3 or 4 [facility] [address] [place] [address] DISCHARGE SUMMARY Name: CHRISTOPHER OLIVER Room #: 206-P [facility] IN M.R.#: [id number] Admission: 06/16/19 Attend Phys: Emmanuel Carreon MD Discharge: 08/02/19 Date of : 46 Report #: [id number] daily. He is to be encouraged to have progressively exercises with the ultimate goal of once again being independent at home with his family. Diuresis has been accomplished with IV furosemide 40mg bid and metolazone 5mg daily along with carefull I and O (3000+ cc daily) and negative fluid balance 500-1000 cc most days while getting substantial iv load with multiiple antibiotics. Now IV antibiotics are in less fluid. He can be switched to torsemide 40mg po bid and closely monitored. Continue metolazone 5mg daily. Daily potassuim magnesuim are needed. Serial chest x rays TPN needs insulin added to control blood sugars. Levemir 10units bid helps. Also moderate SSI with meals and lower dose at bedtime. Some meals he just doesn't eat, and gets symptomatic at glucoses in the 80's. Medications: Furosemide 40mg IV bid 700 and 1400 metolazone 5mg q am electrolyte and magnesium and phosphorus replacement Magnesium IV recomended due to malabsorption. pancreatic enzymes 6 capsules with each meal, 3 capsule with each snack, many snacks daily. ipratropium/albuterol nebulizer 3 or 4 times a day for his pneumonia. Tylenol 500mg every 4 hours prn. Oxycodone 5mg po at bedtime prn pain for a good night's sleep. (it causes excess sleepiness during the daytime) pregabalin 75 mg q am and 150 mg q hs for diabetic neuropathy. losartan 50mg q hs carvedilol 3.125 bid aspirin 81mg daily apixaban 5mg bid for paroxsymal a fib, hx DVT, superficial thrombosis left arm. Unasyn 3 grams qid, to be followed by Seamus Colón MD Insulin: insulin added to TPN starting about 20 units/bag and adjusted. Levemir 10units q 12 hours. Moderate dose SSI before meals and bedtime, or q 6 hours. Usual treatments for hypoglycemia. [facility] [address] [place] [address] DISCHARGE SUMMARY Name: CHRISTOPHER OLIVER Room #: 206-P [facility] IN M.R.#: [id number] Admission: 06/16/19 Attend Phys: Emmanuel Carreon MD Discharge: 08/02/19 Date of : 46 Report #: [id number] famotidine 20mg po bid. lidocaine patch on 12 off 12 prn shoulder pain sucralfate 1 gram with meals prn only if gets bile reflux gastritis pain docusate 100mg po bedtime. miralax 34 grams in the morning. remove alvarado when stronger and more mobile careful I & O ID consult Seamus Colón MD, who has followed him at [facility] consult Dany Tamez who has followed him at [facility] NOTE: His oncologist is Dr. Perez Crocker at [facility]. In April, he had a full scans and a CA 19-[address] and was [address] Crocker had planned on repeating the scans in July, and he should return for followup with Dr. Crocker as soon as he is able. Being 18 months out, his prognosis is relatively good. A CA 19-9 was drawn on 07/31/2019 and is pending at the time of dictation. Full Code Blue. <ELECTRONICALLY SIGNED> By: Emmanuel Carreon MD 08/03/19 1213 [id number] Emmanuel Carreon MD /nt
--- NOTE | 2019-08-19 11:54 | EKG ---
[facility] [place] [address] ELECTROCARDIOGRAM REPORT Name: CHRISTOPHER OLIVER Room #: 206-P [facility] IN M.R.#: [id number] Admission: 06/16/19 Attend Phys: Emmanuel Carreon MD Discharge: 08/02/19 Date of : 46 Report #: [id number] THIS REPORT FOR: cc: Emmanuel Carreon MD, Stanley P. MD Lundgren, Craig H. MD [facility] ~ THIS REPORT FOR: //name// [facility] Test Date: 2019-08-02 Test Time: 08:10:07 Pat Name: CHRISTOPHER OLIVER Department: Room: 206 Gender: M Egg Smeller: DENISE : 1950 Requested By: Hoa Cevallos Order Number: [id number] MD: Freddy Virk Measurements Intervals [place] Rate: 88 P: 32 PA: 171 QRS: 17 QRSD: 76 T: 88 QT: 401 QTc: 486 Interpretive Statements Sinus rhythm Nonspecific T abnrm, anterolateral leads Borderline prolonged QT interval Compared to ECG 06/17/2019 16:28:27 Atrial premature complex(es) no longer present T wave abnormality is more prominent Electronically Signed On 08-02-2019 8:29:49 CDT by Freddy Virk [email or web address] <ELECTRONICALLY SIGNED> By: Freddy Virk MD, FAC 08/02/1931 9 9 Freddy Virk MD, FAC /EPI
== END 2019-08-02 12:32 | DRG 853 ==
LOC: 4W 15:10 → 3W 07-06 03:35 → ICU 07-18 20:00 → 2N 07-26 17:17
PROVIDERS: Hospitalist; Internal Medicine; Nurse Practitioner; Nurse Practitioner Adult Health; Pediatrics; Specialist; ADMIT Internal Medicine
PROC: 0JBP0ZZ Excision of Left Lower Leg Subcutaneous Tissue and Fascia, Open Approach (ICD-10-PCS; principal; 2019-07-01)
PROC: 30233N1 Transfusion of Nonautologous Red Blood Cells into Peripheral Vein, Percutaneous Approach (ICD-10-PCS; 2019-07-06)
PROC: 0JPT0WZ Removal of Totally Implantable Vascular Access Device from Trunk Subcutaneous Tissue and Fascia, Open Approach (ICD-10-PCS; 2019-07-19)
PROC: 5A09357 Assistance with Respiratory Ventilation, Less than 24 Consecutive Hours, Continuous Positive Airway Pressure (ICD-10-PCS; 2019-07-22)
PROC: 5A09357 Assistance with Respiratory Ventilation, Less than 24 Consecutive Hours, Continuous Positive Airway Pressure (ICD-10-PCS; 2019-07-23)
PROC: 5A09357 Assistance with Respiratory Ventilation, Less than 24 Consecutive Hours, Continuous Positive Airway Pressure (ICD-10-PCS; 2019-07-25)
PROC: B24BZZ4 Ultrasonography of Heart with Aorta, Transesophageal (ICD-10-PCS; 2019-07-28)
DX: A41.89 Other specified sepsis (principal); J96.20 Acute and chronic respiratory failure, unspecified whether with hypoxia or hypercapnia; J69.0 Pneumonitis due to inhalation of food and vomit; E43 Unspecified severe protein-calorie malnutrition; I50.33 Acute on chronic diastolic (congestive) heart failure; T80.218A Other infection due to central venous catheter, initial encounter; N17.9 Acute kidney failure, unspecified; I13.0 Hypertensive heart and chronic kidney disease with heart failure and stage 1 through stage 4 chronic kidney disease, or unspecified chronic kidney disease; L03.031 Cellulitis of right toe; J44.9 Chronic obstructive pulmonary disease, unspecified; Y95 Nosocomial condition; Y84.8 Other medical procedures as the cause of abnormal reaction of the patient, or of later complication, without mention of misadventure at the time of the procedure; L97.519 Non-pressure chronic ulcer of other part of right foot with unspecified severity; E11.42 Type 2 diabetes mellitus with diabetic polyneuropathy; E07.81 Sick-euthyroid syndrome; I48.0 Paroxysmal atrial fibrillation; E87.6 Hypokalemia; I35.0 Nonrheumatic aortic (valve) stenosis; I35.1 Nonrheumatic aortic (valve) insufficiency; E11.51 Type 2 diabetes mellitus with diabetic peripheral angiopathy without gangrene; E83.42 Hypomagnesemia; D50.9 Iron deficiency anemia, unspecified; L30.9 Dermatitis, unspecified; K29.60 Other gastritis without bleeding; G47.33 Obstructive sleep apnea (adult) (pediatric); K21.9 Gastro-esophageal reflux disease without esophagitis; I87.8 Other specified disorders of veins; E03.9 Hypothyroidism, unspecified; N18.2 Chronic kidney disease, stage 2 (mild); K86.89 Other specified diseases of pancreas; K52.9 Noninfective gastroenteritis and colitis, unspecified; E11.22 Type 2 diabetes mellitus with diabetic chronic kidney disease; E11.622 Type 2 diabetes mellitus with other skin ulcer; E11.649 Type 2 diabetes mellitus with hypoglycemia without coma; Z68.30 Body mass index [BMI] 30.0-30.9, adult; Z86.73 Personal history of transient ischemic attack (TIA), and cerebral infarction without residual deficits; Z79.82 Long term (current) use of aspirin; Z79.899 Other long term (current) drug therapy; Z86.718 Personal history of other venous thrombosis and embolism; Z87.891 Personal history of nicotine dependence; Z85.07 Personal history of malignant neoplasm of pancreas; Y92.89 Other specified places as the place of occurrence of the external cause
CPT/HCPCS: 10045; 10047; 10078; 10081; 10779; 85076

== ENCOUNTER → 2020-04-09 | Outpatient (CLI) | payer OTHER ==
[~2020-04-09] MED LIST changes: +ASA81BEC PO; +AVAPRO300 MG PO; +BACTRIM DS TAB1 EACH PO; +BAYER CHEWABLE81 MG PO; +CINNAMON500 MG PO; +COREG3.125 MG PO; +COZAAR 50 MG TA50 M1 PO; +DEXTROSE 500.5 GM/M1 IV PUSH; +DOXYCYCLINE 10100 M2 PO; +DOXYCYCLINE HYC50 MG PO; +FAMOTIDINE20 MG/2 M2 IV PUSH; +FUROSEMIDE20 MG/2 ML IV PUSH; +GENTAMICIN SULF15 GM TOP; +GLUCAGEN1 MG/1 ML IM; +GLUCOSE4 GM PO; +GLUTOSE GEL 1515 G1 PO; +HUMALOG KW100 UNIT/1 SUBQ; +HUMALOG100 UNIT/1 SUBQ; +IPRAT-ALBUT 0.5-3 ML INH; +K-DUR 20 MEQ T20 MEQ PO; +KLOR-CON M2020 MEQ PO; +LAMISIL AT 1% C12 G1 TOP; +LANTUS SUBQ; +LIDOPATCH1 EACH TRANSDERM; +LYRICA100 MG PO; +METFORMIN HCL1000 MG PO; +METOLAZONE 5 MG5 MG PO; +MORPHINE 11 MG/2 ML TOP; +OXYCODONE HCL E10 MG PO; +PANCREAZE DR 11 EAC2 PO; +ROXICODONE5 M2 PO; +UNASYN 3 GM VIAL3 G1 IV; +ZENPEP DR 25,01 EAC1 PO
== END ==
LOC: LAB 13:49
PROVIDERS: ATTEND Specialist
DX: Z01.812 Encounter for preprocedural laboratory examination (principal); Z20.828 Contact with and (suspected) exposure to other viral communicable diseases

== ENCOUNTER 2020-07-03 01:47 | Inpatient (IN) | payer OTHER ==
[2020-07-03] VITALS (9 sets, daily range): BP systolic 110–153; BP diastolic 54–80
[~2020-07-03] VITALS: Ht 180.3 cm; Wt 102.1 kg
[2020-07-03] MEDS ORDERED: COZAAR 25 MG TA25 M2 PO (02:00)
[2020-07-03] MEDS ORDERED: PREGABALIN75 MG PO (02:01)
[2020-07-03] MEDS ORDERED: LYRICA150 MG PO (02:01)
[2020-07-03] MEDS ORDERED: LASIX 40 MG TAB40 MG PO (02:02)
[2020-07-03] MEDS ORDERED: ZOFRAN ODT4 MG PO (02:02)
[2020-07-03] MEDS ORDERED: CONSTULOSE10 GM/15 M PO (02:04)
[2020-07-03 02:26] LABS: BASOPHILS 0.5 % (0.0-2.0); EOSINOPHILS 1.5 % (0.0-3.0); HEMATOCRIT 28.3 % (42.0-52.0); HEMOGLOBIN 8.7 gm/dL (14.0-18.0); LYMPHOCYTES 9.7 % (24.0-44.0); MCH 21.3 pg (26.0-34.0); MCHC 30.7 g/dL (28.0-37.0); MCV 69.5 fL (80.0-100.0); MONOCYTES 8.6 % (1.0-8.0); PLATELET COUNT 301 thou/uL (150-400); POLYS 79.7 % (36.0-66.0); RBC 4.07 mil/uL (4.50-6.00); RDW 15.6 % (10.5-14.5); WBC 11.3 thou/uL (4.0-11.0)
[2020-07-03 02:30] LABS: ANION GAP 7 mmol/L (7-16); BUN 37 mg/dL (7-18); CALCIUM 8.9 mg/dL (8.5-10.1); CHLORIDE 99 mmol/L (98-107); CO2 28 mmol/L (21-32); CREATININE 1.9 mg/dL (0.7-1.3); GLUCOSE 284 mg/dL (74-106); POTASSIUM 4.3 mmol/L (3.5-5.1); SODIUM 134 mmol/L (136-145)
[2020-07-03 02:40] LABS: ALBUMIN 2.4 g/dL (3.4-5.0); SGOT 61 U/L (15-37); SGPT 63 U/L (30-65); TOTAL BILIRUBIN 0.5 mg/dL (0.2-1.0); TOTAL PROTEIN 7.8 g/dL (6.4-8.2); TROPONIN-I <0.06 ng/mL (<0.06)
[2020-07-03 04:36] LABS: URINE BILIRUBIN NEGATIVE (Negative); URINE BLOOD 1+ (Negative); URINE CLARITY CLEAR; URINE COLOR YELLOW; URINE GLUCOSE-RANDOM* 3+ (Negative); URINE KETONES NEGATIVE (Negative); URINE LEUKOCYTES-REFLEX NEGATIVE (Negative); URINE NITRITE-REFLEX NEGATIVE (Negative); URINE PROTEIN (DIPSTICK) TRACE (Negative); URINE UROBILINOGEN 0.2 E.U./dl (0.2-1.0)
[2020-07-03 05:19] LABS: BACTERIA-REFLEX 1-9 Few /HPF (None Seen); CASTS None Seen /LPF (None Seen); CRYSTALS None Seen /LPF (None Seen); MUCUS 0-3 Light strn/LPF (None Seen); SQUAMOUS 4-10 Moderate /LPF (0-3); URINE RBC 3-10 Few /HPF (0-2); URINE WBC-REFLEX 0-5 Rare /HPF (0-5)
[2020-07-03] MEDS ORDERED: HUMALOG PEN (06:32)
--- NOTE | 2020-07-03 10:44 | NUR ---
INITIAL ASSESSMENT: SW reviewed chart and spoke with nursing and attending physician. Pt was admitted from home due to weakness. Pt placed in Enhanced Isolation to r/o COVID. Pt's test is pending. Pt is afebrile and not requiring O2. SW spoke with pt via phone. Introduced role of SW. Pt appears to be alert/orientatec x 4. Pt reports he lives at home with his . Prior to admission, pt was using a walker. Pt states there are 12 steps to enter their home and 12 steps inside. Pt has been to [facility] and [facility] in the past. Pt states he has used HH, but unsure of HH provider. Pt's PCP is Dr. Emmanuel Carreon. Therapy evals ordered and 5[facility] consult ordered. Awaiting input from 5N. Will need insurance authorization for post-acute placement. SW is following to assist as needed with discharge planning.
[2020-07-03 11:45] LABS: % SATURATION 12 % (20-39); IRON 15 ug/dL (65-175); TIBC 129 ug/dL (250-450)
--- NOTE | 2020-07-03 11:48 | NUR ---
Patient DMITRI Hose applied to bilateral mid-thigh at 1200 pm.
[2020-07-03 11:50] LABS: FOLIC ACID 22.3 ng/mL (8.6-58.9)
--- NOTE | 2020-07-03 12:47 | EKG ---
[place] [address] [facility] [place] [address] ELECTROCARDIOGRAM REPORT Name: CHRISTOPHER OLIVER Room #: 362-P ADM IN M.R.#: [id number] Admission: 07/03/20 Attend Phys: Colby Shaffer Discharge: Date of : 46 Report #: [id number] [facility] ED Test Date: 2020-07-03 Test Time: 01:53:50 Pat Name: CHRISTOPHER OLIVER Department: Room: 362 P Gender: M Farm Specialist: LUPE : 1950 Requested By: Colby Shaffer Order Number: [id number] MD: Kevin Elaine Measurements Intervals [place] Rate: 89 P: 2 TN: 180 QRS: -9 QRSD: 80 T: 74 QT: 343 QTc: 418 Interpretive Statements Sinus rhythm Consider left atrial enlargement Compared to ECG 08/02/2019 08:10:07 No significant changes Electronically Signed On 07-03-2020 12:47:16 MENTAL HEALTH THERAPIST by Kevin Elaine [email or web address] <ELECTRONICALLY SIGNED> By: Kevin Elaine MD, [facility] 07/03/20 1247 [id number] Kevin Elaine MD, FACC /EPI
--- NOTE | 2020-07-03 15:54 | NUR ---
THIS RN INFORMED FAMILY MEMBER, SON, PT IS MOVING TO ROOM 212 REPORT PROVIDED TO NURSE ON CCU UNIT.
--- NOTE | 2020-07-03 16:38 | NUR ---
PT ORIENTED TO ROOM AND UNIT, BED LOW AND LOCKED, SIDE RAILS UPX3, CALL LIGHT IN REACH. TELE APPLIED. WILL CONTINUE TO ASSESS.
[2020-07-04 01:06] LABS: GLYCOHEMOGLOBIN (HGB A1C) 9.8 % (4.8-5.6)
--- NOTE | 2020-07-04 03:34 | NUR ---
assumed pt care at change of shift, pt is alert and oriented, sr on the monitor, denies pain or sob, assessments as charted, denies concerns at this time, will continue to monitor and follow poc
[2020-07-04 03:56] VITALS: BP 152/76
[2020-07-04 05:45] LABS: HEMATOCRIT 27.7 % (42.0-52.0); HEMOGLOBIN 8.5 gm/dL (14.0-18.0); MCH 21.5 pg (26.0-34.0); MCHC 30.5 g/dL (28.0-37.0); MCV 70.3 fL (80.0-100.0); RBC 3.94 mil/uL (4.50-6.00); RDW 15.7 % (10.5-14.5); WBC 11.1 thou/uL (4.0-11.0)
[2020-07-04 06:33] LABS: CALCIUM 8.6 mg/dL (8.5-10.1); CREATININE 1.5 mg/dL (0.7-1.3); MAGNESIUM 1.8 mg/dL (1.8-2.4); POTASSIUM 4.1 mmol/L (3.5-5.1)
--- NOTE | 2020-07-04 08:14 | HC ---
[facility] [place] [address] CONSULTATION Name: CHRISTOPHER OLIVER Elliott Room #: 212-P [facility] IN M.R.#: [id number] Admission: 07/03/20 Attend Phys: Jonas Padilla MD Discharge: Date of : 46 Report #: [id number] THIS REPORT FOR: cc: Emmanuel Carreon MD, Stanley P. MD McKittrick, Richard James MD ~ DATE OF SERVICE: 07/03/2020 REFERRING PHYSICIAN: Dr. Colby Shaffer. REASON FOR CONSULTATION: History of pancreatic cancer. HISTORY OF PRESENT ILLNESS: The patient is a very pleasant 69-year-old male who has a diagnosis of a pancreatic cancer in 04/2018. He received approximately 6 cycles of neoadjuvant FOLFIRINOX chemotherapy. He then underwent a Whipple procedure on 01/26/2018 at . Final pathology was a 3.7 cm residual tumor, negative margins, 0 of 21 lymph nodes involved, this would be a stage T2N0 or stage 1B. He then had several more cycles of adjuvant FOLFIRINOX, completed between 03/09/2018 and 04/19/2018. Note that the cycles XI and XII were omitted due to deconditioning. The patient was most recently seen in early June, and had CAT scans right before that time that did not show any evidence of recurrent disease. Note that we will ask you to be clouded to [place] when compared. The patient was brought in because yesterday while standing to urinate at the toilet, he collapsed. He says he did not lose consciousness. He does sort of felt weak. He has had this happened 2-3 other times using the same situation. He states that yesterday he had not missed the meals, he has not missed any medicines or do anything unusual. He said his family members have been healthy. REVIEW OF SYSTEMS: The patient denies. He does have occasional headaches, not too bad. His vision is okay. Swallowing is okay. He says no breathing difficulties. No nausea, no vomiting. No new arm or leg swelling. Does have peripheral neuropathy that is unchanged. No new urination or defecation difficulties that he describes. He does occasionally have abdominal discomfort, we thinks may be constipation, but not sure. Also, occasionally has some fatigue and postnasal drip. PAST MEDICAL HISTORY: Notable for the pancreatic cancer, thought to be non-recurrent; history of chronic kidney disease; hypertension; diabetes type 2; DVT in his left leg 07/2017, currently on Eliquis; also hyperlipidemia history; hypertension history; obstructive sleep apnea; also has CVA on 07/26/2018. FAMILY HISTORY: He is retired. [facility] [address] [place] [address] CONSULTATION Name: CHRISTOPHER OLIVER Elliott Room #: 212-P [facility] IN M.R.#: [id number] Admission: 07/03/20 Attend Phys: Jonas Padilla MD Discharge: Date of : 46 Report #: [id number] SOCIAL HISTORY: No significant alcohol or tobacco if I understand correctly. PHYSICAL EXAM: GENERAL: The patient appears his stated age. He is in bed. He is conversant. His speech and thought pattern appear to be normal. VITAL SIGNS: Height is 6 feet, 182.88 cm. Weight 203 pounds or 92.2 kilograms. Recent blood pressure 128/62, O2 sat 100%, respirations 16, pulse 92, afebrile at 98.3. NEUROLOGIC: Face is symmetrical. As I mentioned, speech and thought pattern appear to be normal. LYMPHATICS: No enlarged lymph nodes in the supraclavicular, cervical, axillary or inguinal region. ABDOMEN: Slightly protuberant. No obvious masses. No fluid wave. EXTREMITIES: Have perhaps some trace edema. LABORATORY DATA: Here has a creatinine of 1.9, glucose of 284, AST 61, total bilirubin 0.5, albumin 2.4. Lactic acid 1.3. White count 11.3, hemoglobin 8.7, MCV 69.5, platelet count 301. Differential without acute changes. TSH 0.168. Ferritin not done for some time, folate was not done for some time. Imaging done here. Also, note that he had a hemoglobin electrophoresis on 07/29/2018 that was reported as normal. Highest MCV has ever been is 80.2 on one measure, most of the time it is highs as 78 or 79. IMAGING STUDIES: Included a recent CT abdomen and pelvis, they were described an area of spiculation along the lateral wall of the descending duodenum measuring approximately 3.5 x 2.7 cm, may represent residual tumor or scarring or combination of both. Clinical correlation recommended. They also mention adenopathy along the mesentery measuring up to 2.3 x 1.5 cm. Postoperative changes of Whipple procedure noted. MEDICATIONS: At this time in the hospital currently include pregabalin 150 mg at bedtime, enteric-coated aspirin 81 daily, apixaban 5 b.i.d., pregabalin 75 with breakfast, carvedilol 3.125 at the breakfast, immediate release oxycodone 10 mg q.i.d. p.r.n., pantoprazole 40 mg daily, insulin on a sliding scale, and had been on clopidogrel, I am not sure if this is still being given. ASSESSMENT AND PLAN: 1. History of stage IB pancreatic cancer from 09/2017. Recent imaging at 3 weeks ago did not suggest recurrent disease ____ images be clouded over to compared with the ones done yesterday here at [place] for final opinion. 2. Microcytic anemia with a normal hemoglobin electrophoresis in the past, would wonder if this may be a form of thalassemia. We will check iron panel. 3. Syncopal/fall while urinating. This is his third or fourth episode. Workup per others may be related to diabetic neuropathy, but will defer to others. 4. Weakness, we will defer to rehab services. [facility] [address] [place] [address] CONSULTATION Name: CHRISTOPHER OLIVER Room #: 212-P ADM IN M.R.#: [id number] Admission: 07/03/20 Attend Phys: Jonas Padilla MD Discharge: Date of : 46 Report #: [id number] 5. Type 2 diabetes, sliding scale insulin. 6. Hyperlipidemia, management per others. 7. Obesity, management per others. 8. History of hypertension, management per others. 9. History of deep venous thrombosis, should probably continue on Eliquis. 10. History of obstructive sleep apnea, per others. 11. Gastroesophageal reflux disease, pantoprazole. 12. Diabetic peripheral neuropathy on pregabalin. We will follow with you. <ELECTRONICALLY SIGNED> By: Marques Addison MD 07/04/20 0814 0848 1 Marques Addison MD /romel
[2020-07-04 08:50] VITALS: BP 149/69
--- NOTE | 2020-07-04 11:00 | NUR ---
CONSULT FOR ADV. DIR. 07/03/20 COMPLETED BY THIS SHOW DESIGN SUPERVISOR. AND DAUGHTER DESIGNATED.
[2020-07-04 11:47] VITALS: BP 136/56
--- NOTE | 2020-07-04 15:04 | NUR ---
Met with patient and at bedside. Patient admits with generalized weakness. Patient reports his legs buckle. He reports in spring/summer he was walking all over and now weaker. Discussed post acute care with patient/spouse. Patient does not want to go to skilled care he wants to return home. Notified phys. Patient goes to outpatient therapy 3x a week. Prefer to resume outpatient therapy. Patient has walker at home. PCP Dr Carreon
[2020-07-04 15:18] VITALS: BP 134/58
--- NOTE | 2020-07-04 15:54 | NUR ---
DISCHARGED HOME NOW DENIES ANY SOB, ROOM AIR SATURATIONS =94%. FOLLOW UP July DISCUSSED IV'S BILATERALLY, NO HEMATOMA.
[2020-07-04 20:27] VITALS: BP 148/71
[2020-07-05 04:18] VITALS: BP 169/84
[2020-07-05 05:03] LABS: ALBUMIN 2.2 g/dL (3.4-5.0); CREATININE 1.5 mg/dL (0.7-1.3); TOTAL BILIRUBIN 0.7 mg/dL (0.2-1.0); TOTAL PROTEIN 7.4 g/dL (6.4-8.2)
[2020-07-05 07:30] VITALS: BP 167/68
--- NOTE | 2020-07-05 07:30 | NUR ---
assumed care at change of shift, pt is awake, alert and oriented, able to make needs known, sr on the monitor, denied pain, assessments as charted, bp elevated in the am, had a fever and vomited x2, padder notified, orders received and acknowledged, bp better, temp down to 100.4, pt remains lethargic, passed on report to day nurse
--- NOTE | 2020-07-05 07:43 | NUR ---
ASSUMED CARE OF THIS PATIENT FROM THE NIGHT NURSE. DR HYDE NOTIFIED TO FEVER OF 102 AND ADMISSION OF UTI AND NO ANTIBIODICS ORDERED. ORDERS RECEIVED. LAB AND XRAY NOTIFIED OF STAT ORDERS.
[2020-07-05 08:07] LABS: HEMATOCRIT 28.7 % (42.0-52.0); HEMOGLOBIN 8.8 gm/dL (14.0-18.0); MCH 21.2 pg (26.0-34.0); MCHC 30.6 g/dL (28.0-37.0); MCV 69.1 fL (80.0-100.0); RBC 4.15 mil/uL (4.50-6.00); RDW 15.9 % (10.5-14.5); WBC 15.4 thou/uL (4.0-11.0)
[2020-07-05 08:23] LABS: CREATININE 1.4 mg/dL (0.7-1.3); POTASSIUM 3.9 mmol/L (3.5-5.1)
[2020-07-05 09:11] LABS: ABSOLUTE NEUTROPHILS 14.2 thou/uL (1.4-8.2); HYPOCHROMASIA 2+
[2020-07-05 09:12] LABS: ANISOCYTOSIS 2+
[2020-07-05 09:13] LABS: MICROCYTES 1+
[2020-07-05 09:14] LABS: LARGE PLATELETS OCCASIONAL; PLATELET COUNT 309 thou/uL (150-400)
[2020-07-05 11:40] VITALS: BP 122/56
--- NOTE | 2020-07-05 14:54 | NUR ---
1130 BLOOD GLUCOSE LEVEL 61, PATIENT IS ALERT, ORANGE JUICE GIVEN. 1300 BLOOD GLUCOSE REPEATED AND TREATED WITH D10W 1421. BLOOD GLUCOSE WITHIN PARAMATERS. 1440 PIPERCILLIN LOADING DOSE INFUSING. PATIENT SLEEPING, AROUSES AFTER CALLING NAME. AT BEDSIDE AND UPDATED TO STATUS. DR JUAREZ CONSULTED.
[2020-07-05 15:25] VITALS: BP 135/70
[2020-07-05 18:21] LABS: URINE BILIRUBIN NEGATIVE (Negative); URINE BLOOD TRACE (Negative); URINE COLOR YELLOW; URINE GLUCOSE-RANDOM* 3+ (Negative); URINE KETONES TRACE (Negative); URINE NITRITE-REFLEX NEGATIVE (Negative); URINE PROTEIN (DIPSTICK) 2+ (Negative); URINE SPECIFIC GRAVITY 1.025 (1.005-1.035)
[2020-07-05 18:53] LABS: URINE CLARITY HAZY; URINE LEUKOCYTES-REFLEX 1+ (Negative)
[2020-07-05 18:56] LABS: BACTERIA-REFLEX >30 Many /HPF (None Seen); CASTS None Seen /LPF (None Seen); CRYSTALS None Seen /LPF (None Seen); SQUAMOUS 0-3 Few /LPF (0-3); URINE RBC 0-2 Rare /HPF (0-2); YEAST-REFLEX Present (None Seen)
--- NOTE | 2020-07-05 19:00 | NUR ---
PATIENT IS PROGRESSING TOWARDS OUTCOME GOALS TEMPERATURE IS LESS THAN 100. ASSISTED UP TO THE COMMODE X 2 FOR VERY LARGE BM'S. ABD IS SOFT TO PALPATION. STATES THAT HIS NAUSEA IS RELIEVED. NO EMESIS. URINE FOR UA OBTAINED AND SENT TO THE LAB. AT BEDSIDE AND ASSISTED WITH MRI SCREENING SHEET.
[2020-07-05 20:22] VITALS: BP 143/54
[2020-07-05 23:52] VITALS: BP 137/57
--- NOTE | 2020-07-06 03:40 | NUR ---
assumed pt care at around 1900, pt is sleeping, up during asessment. alert and oriented, able to make needs known, assessments as charted, meds given as per mar, critical results called registered client associate for gram - rods, on iv abx, bs stable, vss, no fever, denies pain or sob, large bowel movement x1 this shift, no nausea, no needs at this time, will continue to monitor and follow poc
[2020-07-06 04:01] LABS: CALCIUM 8.9 mg/dL (8.5-10.1); CREATININE 1.6 mg/dL (0.7-1.3); POTASSIUM 3.8 mmol/L (3.5-5.1)
[2020-07-06 04:16] LABS: ABSOLUTE NEUTROPHILS 16.2 thou/uL (1.4-8.2); BASOPHILS 0.3 % (0.0-2.0); EOSINOPHILS 0.8 % (0.0-3.0); HEMATOCRIT 28.5 % (42.0-52.0); HEMOGLOBIN 8.7 gm/dL (14.0-18.0); LYMPHOCYTES 7.7 % (24.0-44.0); MCH 21.4 pg (26.0-34.0); MCHC 30.4 g/dL (28.0-37.0); MCV 70.2 fL (80.0-100.0); MONOCYTES 3.8 % (1.0-8.0); PLATELET COUNT 291 thou/uL (150-400); POLYS 87.4 % (36.0-66.0); RBC 4.06 mil/uL (4.50-6.00); RDW 16.1 % (10.5-14.5); WBC 18.6 thou/uL (4.0-11.0)
[2020-07-06 04:51] VITALS: BP 145/64
[2020-07-06 07:40] VITALS: BP 133/63
[2020-07-06 11:15] VITALS: BP 139/68
[2020-07-06 16:00] VITALS: BP 164/74
--- NOTE | 2020-07-06 17:00 | NUR ---
Case discussed with the care team. Pt now with fever, elev wbc's starting on IV ATB for positive blood cultures. No weekend dc anticipated. Will reassess early next week for dc planning needs. Pt had been evaluated by 5N but was doing well and wanting to resume his outpt therapy at dc.
--- NOTE | 2020-07-06 17:53 | HC ---
[facility] [place] [address] CONSULTATION Name: CHRISTOPHER OLIVER Room #: 212-P [facility] IN ..#: [id number] Admission: 07/03/20 Attend Phys: Jonas Padilla MD Discharge: Date of : 46 Report #: [id number] THIS REPORT FOR: cc: Emmanuel Carreon MD, Stanley P. MD Geha, Daniel J. MD ~ DATE OF SERVICE: 07/05/2020 INFECTIOUS DISEASE CONSULTATION REASON FOR CONSULTATION: I was asked to evaluate concerning Gram-negative sepsis. HISTORY OF PRESENT ILLNESS: The patient is a 69-year-old with history of pancreatic cancer, status post Whipple procedure, presents with generalized debility and falls at home. This has progressed over the last several weeks. The patient was admitted and blood cultures were drawn revealing gram-negative bacilli. He has been without fever, chills or sweats. He has had no nausea, vomiting or diarrhea. He denies any cough or sputum production. No dysuria. He has had no shortness of breath. REVIEW OF SYSTEMS: A 14-point review of system was negative other than what is described above. ALLERGIES: None known. MEDICATIONS: As noted on his MAR including Zosyn. PAST MEDICAL HISTORY: Pancreatic cancer, status post Whipple's procedure in 2018, diabetes, peripheral neuropathy, hypertension, hyperlipidemia, DVT, PE, bilateral lower extremity stents, colonoscopy, bilateral cataract surgery, right rotator cuff repair, basal cell cancer of the skin, gastroesophageal reflux, stroke, atrial fibrillation, small-bowel obstruction, congestive heart failure, chronic kidney disease, PEG tube placement, dysphagia. FAMILY HISTORY: No report of tuberculosis. SOCIAL HISTORY: Nonsmoker, no significant alcohol intake. PHYSICAL EXAMINATION: VITAL SIGNS: Maximum temperature was 100.4 degrees, currently afebrile, hemodynamically stable. GENERAL: The patient was alert and cooperative. He was in no acute distress. SKIN: Without rash or decubitus. No palpable adenopathy. EYES: Without scleral icterus. [address] [address] CONSULTATION Name: CHRISTOPHER OLIVER Elliott Room #: [facility] IN ..#: [id number] Admission: 07/03/20 Attend Phys: Jonas Padilla MD Discharge: Date of : 46 Report #: [id number] MOUTH: Without mucositis. NECK: Supple. LUNGS: Clear to auscultation anteriorly. Few crackles in the bases bilaterally. HEART: Regular, without appreciable murmur, gallop or rub. ABDOMEN: Soft with fullness in the epigastric region without appreciable mass or hepatosplenomegaly. No abdominal distention. GENITOURINARY: External genitalia with yeast balanitis. Uncircumcised penis. RECTAL: Not performed. EXTREMITIES: Without clubbing, cyanosis or edema. NEUROLOGIC: Cranial nerves intact. Strength in the upper and lower extremities was symmetric and within normal limits. BACK: Nontender with no CVA tenderness. LABORATORY STUDIES: Reviewed. MICROBIOLOGY: Reviewed. IMAGING: CT scan of abdomen and pelvis reviewed. IMPRESSION: Gram-negative bacteremia with sepsis with altered mental status, now improved. Source most likely biliary tract with evidence of a mass in the small bowel could also be related to this. Urinary tract infection considered, but less likely, in that there is minimal pyuria on his urinalysis. He has bilateral pulmonary infiltrates, possible acute aspiration versus edema. History of pancreatic cancer. RECOMMENDATIONS: We will continue gram-negative antibiotic coverage. Await MRCP to further delineate the upper abdominal mass. Await culture results. <ELECTRONICALLY SIGNED> By: Xavi Colón MD 07/06/20 1753 0144 0158 Xavi Colón MD /nt
--- NOTE | 2020-07-06 18:00 | NUR ---
VAT CONSULTED FOR ML PLACEMENT. RIGHT UPPER 4FR BASILIC ML PLACED. PT TOLERATED WELL. 14CM WITH 0CM EXTERNAL. RELEASED FOR USE.
[2020-07-06 20:20] VITALS: BP 115/48
[2020-07-07 04:35] LABS: HEMATOCRIT 22.1 % (42.0-52.0); MCH 22.2 pg (26.0-34.0); MCHC 31.7 g/dL (28.0-37.0); MCV 70.2 fL (80.0-100.0); RBC 3.14 mil/uL (4.50-6.00); RDW 16.2 % (10.5-14.5); WBC 9.5 thou/uL (4.0-11.0)
[2020-07-07 04:41] VITALS: BP 135/59
[2020-07-07 05:20] LABS: ALBUMIN 1.8 g/dL (3.4-5.0); CALCIUM 8.2 mg/dL (8.5-10.1); CREATININE 1.6 mg/dL (0.7-1.3); MAGNESIUM 1.8 mg/dL (1.8-2.4); POTASSIUM 3.8 mmol/L (3.5-5.1); TOTAL BILIRUBIN 0.3 mg/dL (0.2-1.0); TOTAL PROTEIN 6.2 g/dL (6.4-8.2)
[2020-07-07 07:45] VITALS: BP 152/60
[2020-07-07 12:10] VITALS: BP 130/57
[2020-07-07 15:45] VITALS: BP 146/58
--- NOTE | 2020-07-07 16:07 | NUR ---
NO COMPLAINTS THIS SHIFT, SHOWERED, SITTING IN CHAIR. AT BEDSIDE. DIFLUCAN STARTED TODAY. WBC DOWN TO 9.5. AFEBRILE.
[2020-07-07 19:42] VITALS: BP 154/62
[2020-07-08] VITALS (7 sets, daily range): BP systolic 110–150; BP diastolic 50–63
[2020-07-08 03:30] LABS: HEMATOCRIT 24.7 % (42.0-52.0); HEMOGLOBIN 7.6 gm/dL (14.0-18.0); MCH 21.8 pg (26.0-34.0); MCHC 30.8 g/dL (28.0-37.0); MCV 70.7 fL (80.0-100.0); RBC 3.5 mil/uL (4.50-6.00); WBC 8.3 thou/uL (4.0-11.0)
[2020-07-08 03:48] LABS: ALBUMIN 1.8 g/dL (3.4-5.0); CALCIUM 8.3 mg/dL (8.5-10.1); CREATININE 1.5 mg/dL (0.7-1.3); MAGNESIUM 1.7 mg/dL (1.8-2.4); POTASSIUM 3.9 mmol/L (3.5-5.1); TOTAL BILIRUBIN 0.2 mg/dL (0.2-1.0); TOTAL PROTEIN 6.5 g/dL (6.4-8.2)
--- NOTE | 2020-07-08 04:51 | NUR ---
ASSESSMENT DOCUMENTED.PT BEEN RESTING IN NO ACUTE DISTRESS.A/OX4.VSS.DENIES ANY ABDOMINAL PAIN.NO N/V.VOIDING VIA URINAL.ON ANTIBIOTICS INFUSION.HAD X I BM.NO CONCERNS VOICED AT THIS TIME.
[2020-07-09 03:20] LABS: HEMOGLOBIN 6.9 gm/dL (14.0-18.0); MCH 21.9 pg (26.0-34.0); RDW 16.3 % (10.5-14.5); WBC 7.1 thou/uL (4.0-11.0)
[2020-07-09 03:21] LABS: HEMATOCRIT 22.3 % (42.0-52.0); MCHC 31.1 g/dL (28.0-37.0); MCV 70.4 fL (80.0-100.0); RBC 3.17 mil/uL (4.50-6.00)
[2020-07-09 03:38] LABS: ALBUMIN 1.6 g/dL (3.4-5.0); CALCIUM 8.1 mg/dL (8.5-10.1); CREATININE 1.4 mg/dL (0.7-1.3); MAGNESIUM 1.6 mg/dL (1.8-2.4); POTASSIUM 3.5 mmol/L (3.5-5.1); TOTAL BILIRUBIN 0.3 mg/dL (0.2-1.0); TOTAL PROTEIN 5.9 g/dL (6.4-8.2)
[2020-07-09 04:21] VITALS: BP 142/57
--- NOTE | 2020-07-09 07:24 | NUR ---
ASSESSMENTS CHARTED, MEDS CHARTED GIVEN. C/O WEAKNESS AND LETHERGY AND ABDOMENAL PAIN. PAIN WITH TYLENOL GIVEN. FALL PRECAUTIONS IN PLACE DURING SHIFT.
[2020-07-09 07:40] VITALS: BP 152/61
[2020-07-09 10:45] VITALS: BP 152/62
[2020-07-09 11:00] VITALS: BP 149/63; BP 178/73
--- NOTE | 2020-07-09 13:20 | 2DMMODE ---
[facility] [place] [address] 2 D/M-MODE ECHOCARDIOGRAM Name: CHRISTOPHER OLIVER Room #: 212-P ADM IN M.R.#: [id number] Admission: 07/03/20 Attend Phys: Jonas Padilla MD Discharge: Date of : 46 Report #: [id number] THIS REPORT FOR: cc: Emmanuel Carreon MD, Stanley P. MD Lundgren, Craig H. MD [facility] ~ APPROVED REPORT Study performed: 07/09/2020 11:38:20 EXAM: Comprehensive 2D, Doppler, and color-flow Echocardiogram Patient Location: Bedside Room #: 212 Status: routine BSA: 2.17 HR: 55 bpm BP: 142/57 mmHg Rhythm: Bradycardia Other Information Study Quality: Good Indications Aortic Valve Disease Diabetes 2D Dimensions RVDd: 41.96 mm IVSd: 11.44 (7-11mm) LVOT Diam: 22.70 (18-24mm) LVDd: 59.41 mm PWd: 10.10 (7-11mm) LVDs: 36.55 (25-40mm) Left Atrium: 51.73 (27-40mm) Aortic Root: 37.79 mm IVC: 25.00 mm Volumes Left Atrial Volume (Systole) Single Plane 4CH: 100.21 mL Single Plane 2CH: 103.96 mL LA ESV Index: 54.00 mL/m2 Aortic Valve AoV Peak Gabriele.: 2.98 m/s AO Peak Gr.: 35.48 mmHg LVOT Max P.15 mmHg AO Mean Gr.: 20.25 mmHg LVOT Mean P.30 mmHg [facility] [address] [place] [address] 2 D/M-MODE ECHOCARDIOGRAM Name: CHRISTOPHER OLIVER Room #: 212-P [facility]#: [id number] Admission: 07/03/20 Attend Phys: Jonas Padilla, Discharge: Date of : 46 Report #: [id number] AO V2 Mean: 2.14 m/s LVOT Max V: 1.29 m/s AO V2 VTI: 70.93 cm LVOT Mean V: 1.00 m/s DANGELO (VTI): 1.89 cm2 LVOT V1 VTI: 33.15 cm DANGELO Vmax: 1.75 cm2 SV (LVOT): 134.13 mL Mitral Valve E/A Ratio: 0.9 MV Decel. Time: 233.19 ms MV E Max Gabriele.: 1.12 m/s MV A Gabriele.: 1.23 m/s MV PHT: 67.63 ms Pulmonary Valve PV Peak Gabriele.: 0.84 m/s PV Peak Gr.: 2.84 mmHg Tricuspid Valve TR Peak Gabriele.: 2.83 m/s TR Peak Gr.: 32.00 mmHg PA Pressure: 42.00 mmHg Left Ventricle Left ventricle is at the upper limits of normal. There is normal LV segmental wall motion. There is normal left ventricular wall thickness. The left ventricular systolic function is normal. The left ventricular ejection fraction is within the normal range. LVEF is 55-60%. Mild diastolic dysfunction Right Ventricle The right ventricle is normal size. The right ventricular systolic function is normal. Atria Left atrium is dilated. Right atrium is dilated. Aortic Valve Aortic valve is moderately calcified. Mild aortic regurgitation. Moderate aortic stenosis. Calculated aortic valve area is 1.5 cm2 (Peak gradient of 36 mmHg, mean pressure gradient of 20 mmHg). Mitral Valve Moderate mitral annular calcification Mild mitral regurgitation. No evidence of mitral valve stenosis. Tricuspid Valve [facility] [address] [place] [address] 2 D/M-MODE ECHOCARDIOGRAM Name: CHRISTOPHER OLIVER Elliott Room #: 212-P [facility] IN ..#: [id number] Admission: 07/03/20 Attend Phys: Jonas Padilla, Discharge: Date of : 46 Report #: [id number] The tricuspid valve is normal in structure. There is trace tricuspid regurgitation. Estimated PAP 35 mmHg. There is moderate pulmonary hypertension. Pulmonic Valve The pulmonary valve is normal in structure. There is no pulmonic valvular regurgitation. Great Vessels The aortic root is normal in size. IVC is dilated and collapses <50% with inspiration. Pericardium There is no pericardial effusion. <Conclusion> The left ventricular systolic function is normal. There is normal LV segmental wall motion. LVEF is 55-60%. Mild diastolic dysfunction Both atria are dilated. Aortic valve is moderately calcified. Moderate aortic stenosis, mildly insufficient. Calculated aortic valve area is 1.5 cm2 (Peak gradient of 36 mmHg, mean pressure gradient of 20 mmHg). Moderate mitral annular calcification. Mild mitral regurgitation. There is trace tricuspid regurgitation. Estimated pulmonary artery pressure of 35 mmHg. There is no pericardial effusion. <ELECTRONICALLY SIGNED> By: Freddy Virk MD, FACC 07/09/201318 18 18 Freddy Virk MD, FACC /INF
[2020-07-09 15:14] VITALS: BP 178/73
[2020-07-09 16:55] LABS: ABSOLUTE NEUTROPHILS 8.6 thou/uL (1.4-8.2); EOSINOPHILS 3.8 % (0.0-3.0); HEMATOCRIT 27.9 % (42.0-52.0); LYMPHOCYTES 9.6 % (24.0-44.0); MCH 23.3 pg (26.0-34.0); MCHC 32.6 g/dL (28.0-37.0); MCV 71.6 fL (80.0-100.0); MONOCYTES 7.2 % (1.0-8.0); PLATELET COUNT 275 thou/uL (150-400); POLYS 78.4 % (36.0-66.0); RDW 17.4 % (10.5-14.5)
[2020-07-09 16:56] LABS: HEMOGLOBIN 9.1 gm/dL (14.0-18.0)
[2020-07-09 17:18] LABS: HYPOCHROMASIA 1+
[2020-07-09 17:19] LABS: ANISOCYTOSIS 1+; MICROCYTES 1+
[2020-07-09 20:05] VITALS: BP 145/608
--- NOTE | 2020-07-09 20:08 | NUR ---
RECEIVED PT'S CARE AROUND 0720; PT. ON BED; SR ON THE MONITOR; NOTICED HGB 6.9; PHYSICIAN PAGED; ORDERS ON PLACED BY DR. DAVIS; PHYSICIAN NOTIFIED; MG 1.6; PHYSICIAN NOTIFIED; ST. WILL ORDER SOME MG; DURING AM ASSESSMENT PT. AOX4; C/O PAIN; REQUESTED ACETAMINOPHEN; MEDICATION GIVEN WITH SCHEDULED MEDICATION; REASSESSMENT PT. ST. DECREASE PAIN; ONE UNIT OF BLOOD GIVEN; TOLERATED WELL; ELEVATED SBP; PHYSICIAN NOTIFIED; ORDERS RECEIVED; EDUCATED ABOUT PAIN MANAGEMENT; ST. UNDERSTANDING; OXYCODONE GIVEN; REASSESSMENT ST. DECREASE PAIN; PT. RESTING WITH EYES CLOSED; DROWSY DURING THE AFTERNOON; REFUSED LUNCH; PT'S REQUESTED TO TALK WITH PHYSICIANS; PASSED ON REPORT; INCONTINENT OF URINE; NOT MG ON EMAR; PHYSICIAN NOTIFIED; ORDERS RECEIVED; NOTIFIED OF FLUIDS; D/C FLUIDS; ASSESSMENT CHARGED; FOLLOWING POC; PASSED ON REPORT;
[2020-07-10] VITALS (8 sets, daily range): BP systolic 113–195; BP diastolic 65–86
[2020-07-10 04:21] LABS: HEMATOCRIT 27.1 % (42.0-52.0); HEMOGLOBIN 8.5 gm/dL (14.0-18.0); MCH 22.7 pg (26.0-34.0); MCHC 31.2 g/dL (28.0-37.0); MCV 72.8 fL (80.0-100.0); RBC 3.72 mil/uL (4.50-6.00); RDW 17.7 % (10.5-14.5); WBC 9.6 thou/uL (4.0-11.0)
[2020-07-10 04:37] LABS: ALBUMIN 1.7 g/dL (3.4-5.0); CALCIUM 7.9 mg/dL (8.5-10.1); CREATININE 1.3 mg/dL (0.7-1.3); MAGNESIUM 1.6 mg/dL (1.8-2.4); POTASSIUM 3.8 mmol/L (3.5-5.1); TOTAL BILIRUBIN 0.4 mg/dL (0.2-1.0); TOTAL PROTEIN 5.7 g/dL (6.4-8.2)
--- NOTE | 2020-07-10 04:55 | NUR ---
ASSESSMENTS CHARTED, MEDS CHARTED NEEDED. PATIENT DENIED PAIN DURING SHIFT. WOKE TO EAT A SNACK THEN FELL BACK TO SLEEP. PATIENT'S WANTS THE DOCTOR TO CALL HER TODAY. FALL PRECAUTIONS IN PLACE DURING SHIFT.
--- NOTE | 2020-07-10 09:26 | NUR ---
ASSUMED PT CARE AT 0700. ASSESSMENT PERFORMED AND CHARTED. PT AMBULATED TO BATHROOM FOR BOWEL MOVEMENT WITH GAITBELT AND WALKER.VSS. WILL CONTINUE TO MONITOR. PTS GOAL IS TO FIGURE OUT WHY HE IS HAVING ABD PAIN.
--- NOTE | 2020-07-10 11:17 | NUR ---
patient has not rec therapy for 2 days. Phys reports weak, need therapy to see to determine if need for skilled. Mohamud with physical therapy worked with patient today. Patient walked 3 laps on unit. Patient wants to return home. PT recommends home with HH. Sp with patient and they have used [facility] in past and would like use again. DC office workforce planner to fax referral and arrange. Plan home today.
[2020-07-10] MEDS ORDERED: MAGOX 400400 MG PO (12:40)
[2020-07-10] MEDS ORDERED: MIRALAX17 GM PO (12:40)
[2020-07-10] MEDS ORDERED: VITAMIN D325 MC1 PO (12:40)
[2020-07-10] MEDS ORDERED: KEFLEX500 M1 PO (12:40)
[2020-07-10] MEDS ORDERED: FOLIC ACID1 MG PO (12:40)
[2020-07-10] MEDS ORDERED: COREG6.25 MG PO (12:40)
[2020-07-10] MEDS ORDERED: PROTONIX 20 MG20 M1 PO (12:40)
[2020-07-10] MEDS ORDERED: LANTUS SUBQ (12:40)
[2020-07-10] MEDS ORDERED: B-12500 MCG PO (12:40)
[2020-07-10] MEDS ORDERED: CARAFATE 11 GM/10 M1 PO (12:40)
--- NOTE | 2020-07-10 13:28 | NUR ---
Assess due to length of stay. admit with lower extr weakness, falls, and septicemia. Pt has significant hx pancreatic cancer s/p whipple in 2018. Noted duodenal mass. Pt demonstrating good appetite for about 2 of 3 meals each day. Drinks either Premier protein drink or Ensure and requesting 2 per day. BMI is 30, wts are stable. On B12 and folic acid supplementation and would also recommend start vitamin D for level of 22.8. Otherwise low nutrition risk with appropriate nutrition interventions in place.
--- NOTE | 2020-07-10 13:32 | NUR ---
Pt vitamin D deficient 22.5, recommend start supplementation
--- NOTE | 2020-07-10 17:42 | NUR ---
FAXED REFERRAL TO [facility] SPOKE WITH [facility] IN INTAKE THEY CAN ACCEPT. FAXED DC ORDERS/SUMMARY [facility] IN INTAKE WILL CALL TO ARRANGE VISITS.
[2020-07-11 05:00] VITALS: BP 139/47
--- NOTE | 2020-07-11 06:01 | NUR ---
ASSESSMENTS CHARTED, MEDS CHARTED GIVEN. PATIENT RESTING IN BED DURING SHIFT. PATIENT VERY LETHARGIC. FEBRILE DURING SHIFT. FALL PRECAUTIONS IN PLACE DURING SHIFT. PLAN IS TO DISCHARGE WITH HOME HEALTH IN THE AM IF SERVICE IS AVAILABLE.
[2020-07-11 08:00] VITALS: BP 173/61
[2020-07-11 11:45] VITALS: BP 179/89
--- NOTE | 2020-07-11 12:09 | NUR ---
PT IS NOT PROGRESSING TOWARDS DISCHARGE, PT WAS SUPPOSED TO DISCHARGE YESTERDAY BUT DUE TO SUDDEN ONSET OF ABDOMINAL PAIN, PT WAS NOT ABLE TO DC, TODAY PT WAS SUPPOSED TO DC BUT DUE TO SUDDEN ONSET OF TIREDNESS PT IS NO LONGER ABLE AND INABILITY TO PARTICIPATE IN THERAPY, IT CANNOT BE DETERMINED WHERE IS THE APPROPERIATE AREA FOR THE PT TO DISCHARGE TO. RN HAD CALLED THE AT 1200 TO EXPLAIN THE CURRENT SITUATION AND PT'S INABILITY TO PARTICIPATE WHICH IS DELAYING DISCHARGE OR CAREPLAN, PT'S VERBALIZES UNDERSTANDING AND STATES THAT SHE WILL COME IN LATER THIS EVENING TO VISIT. RN STATED THAT HE WILL PROVIDE FURTHER UPDATES AT THAT TIME
--- NOTE | 2020-07-11 12:54 | NUR ---
Planned dc yesterday to home with care. Patient ambulated 800 feet with no device yesterday. Late afternoon he complained of pain in abd and change in condition. Discharge cancelled. Patient sleeping this am. He was too tired to work with theapy. Sp with updated that Dr Arevalo office will arrange outpatient Pet Scan. Discussed post acute care and left skilled list at bedside. Requested phys call at her request. Case mgt following.
[2020-07-11 15:22] LABS: HEMATOCRIT 28.9 % (42.0-52.0); HEMOGLOBIN 8.9 gm/dL (14.0-18.0); MCH 21.9 pg (26.0-34.0); MCHC 30.7 g/dL (28.0-37.0); MCV 71.4 fL (80.0-100.0); RBC 4.04 mil/uL (4.50-6.00); RDW 17.7 % (10.5-14.5); WBC 11.7 thou/uL (4.0-11.0)
[2020-07-11 15:34] LABS: ALBUMIN 1.8 g/dL (3.4-5.0); CALCIUM 8.1 mg/dL (8.5-10.1); CREATININE 1.2 mg/dL (0.7-1.3); TOTAL BILIRUBIN 0.4 mg/dL (0.2-1.0); TOTAL PROTEIN 6.7 g/dL (6.4-8.2)
[2020-07-11 16:00] VITALS: BP 176/53
[2020-07-11 20:13] VITALS: BP 152/77
[2020-07-12 00:55] VITALS: BP 234/128
[2020-07-12 01:27] LABS: BE(vivo) -2.9 mmol/L (-2 to +3); HCO3 19.3 mmol/L (22.0-26.0); PCO2 25.3 mmHg (35.0-45.0); PO2 60.3 mmHg (80.0-100.0); sO2 93.6 % (92.0-98.0)
[2020-07-12 02:20] LABS: BASOPHILS 0.4 % (0.0-2.0); EOSINOPHILS 0.4 % (0.0-3.0); HEMATOCRIT 31.4 % (42.0-52.0); HEMOGLOBIN 9.6 gm/dL (14.0-18.0); LYMPHOCYTES 3.8 % (24.0-44.0); MCHC 30.7 g/dL (28.0-37.0); MCV 71.8 fL (80.0-100.0); MONOCYTES 1.8 % (1.0-8.0); PLATELET COUNT 276 thou/uL (150-400); POLYS 93.6 % (36.0-66.0); RBC 4.37 mil/uL (4.50-6.00); RDW 18.3 % (10.5-14.5); WBC 11.8 thou/uL (4.0-11.0)
[2020-07-12 03:00] LABS: ALBUMIN 1.9 g/dL (3.4-5.0); CALCIUM 8.3 mg/dL (8.5-10.1); CREATININE 1.3 mg/dL (0.7-1.3); POTASSIUM 3.8 mmol/L (3.5-5.1); TOTAL BILIRUBIN 0.6 mg/dL (0.2-1.0); TOTAL PROTEIN 7.1 g/dL (6.4-8.2)
--- NOTE | 2020-07-12 03:45 | NUR ---
AT APPROX 0050 PT BECAME TACHYCARDIC WITH HR IN THE 130s. THIS RN ENTERED THE PTS ROOM AND FOUND HIM TO BE UNRESPONSIVE. A SET OF VITALS AND BG LEVEL WERE TAKEN (SEE CHARTING FOR DETAILS). I THEN CALLED THE EXTENSION SERVICE ADVISOR. I TOLD THE EXTENSION SERVICE ADVISOR THAT HE WAS SUDDENLY UNRESPONSIVE, TACHYCARDIC, HYPERTENSIVE, TACHYPNEIC AND FEBRILE. EXTENSION SERVICE ADVISOR CAME TO BESIDE. AN EKG, ABG, MEDS, LABS AND CXR WERE ORDED AND THESE TASKS WERE COMPLETED. PT SLOWLY BECAME MORE ALERT AFTER 2 DOSES OF NARCAN. PT WAS PLACED ON 2L NC BASED ON ABG. SEE EMAR AND CHARTING FOR MORE DETAILS.
[2020-07-12 03:53] VITALS: BP 122/61
[2020-07-12 07:15] VITALS: BP 148/70
--- NOTE | 2020-07-12 07:21 | EKG ---
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 : 1950 Requested By: Clare Carlton Order Number: [id number] MD: Kevin Elaine Measurements Intervals Nogal Rate: 132 P: 84 ND: 152 QRS: 29 QRSD: 85 T: 9 QT: 246 QTc: 365 Interpretive Statements Sinus tachycardia Low voltage, precordial leads Anteroseptal infarct, old Baseline wander in lead(s) V4 Compared to ECG 07/03/2020 01:53:50 Low QRS voltage now present Myocardial infarct finding now present Sinus rhythm no longer present Electronically Signed On 07-12-2020 7:21:01 MILL DRESSER by Kevin Elaine [email or web address] <ELECTRONICALLY SIGNED> By: Kevin Elaine MD, FACC 07/12/20 0721 0108 0108 Kevin Elaine MD, [facility] /EPI
[2020-07-12 12:00] VITALS: BP 124/58
[2020-07-12 14:23] LABS: URINE BILIRUBIN NEGATIVE (Negative); URINE BLOOD TRACE (Negative); URINE CLARITY CLOUDY; URINE COLOR YELLOW; URINE GLUCOSE-RANDOM* TRACE (Negative); URINE KETONES NEGATIVE (Negative); URINE LEUKOCYTES-REFLEX NEGATIVE (Negative); URINE NITRITE-REFLEX NEGATIVE (Negative); URINE PROTEIN (DIPSTICK) 2+ (Negative); URINE SPECIFIC GRAVITY 1.025 (1.005-1.035); URINE UROBILINOGEN 0.2 E.U./dl (0.2-1.0)
[2020-07-12 14:55] LABS: SQUAMOUS 0-3 Few /LPF (0-3)
[2020-07-12 14:56] LABS: FINE GRANULAR CASTS 4-10 Moderate /LPF (None Seen)
[2020-07-12 14:57] LABS: AMORPHOUS URATES Few /LPF (None Seen)
[2020-07-12 14:58] LABS: URINE RBC 0-2 Rare /HPF (0-2); URINE WBC-REFLEX 6-15 Few /HPF (0-5)
--- NOTE | 2020-07-12 15:16 | NUR ---
Patient slept most of day yesterday. Patient sitting up in bed more alert. at bedside. For post acute care she is interested [facility]. Request dc program services planner fax referral.
[2020-07-12 16:10] VITALS: BP 149/57
--- NOTE | 2020-07-12 16:49 | NUR ---
FAXED REFERRAL TO [facility] RECEIVED CONFIRMATION AND LEFT MSG WITH JESSICA IN ADM . DP TO FOLLOW.
--- NOTE | 2020-07-12 17:47 | NUR ---
RECEIVED PT'S CARE AROUND 0715; PT. ON BED; ALERT; SR ON THE MONITOR; DURING AM ASSESSMENT PT. AOX4; NO C/O PAIN; AM MEDICATIONS GIVEN; PHYSICIAN NOTIFIED ABOUT PM EVENTS; D/C CANCEL; CONTINUOS FLUIDS; DURING THE EARLY AFTERNOON PT. DROWSY; HAVING A HARD TIME TO KEEP AWAKE; AT THE BED SIDE; UPDATED ABOUT POC AND PT'S HEALTH STATUS; ST. UNDERSTANDING; PT. AWAKE FOR LUNCH; ABLE TO WORK WITH OT; GOOD APPETITE DURING LUNCH AND DINNER; URINE SAMPLE COLLECTED; MONITORING; ASSESSMENT CHARGED; FOLLOWING POC; WILL PASS ON REPORT;
[2020-07-12 20:30] VITALS: BP 136/64
[2020-07-13] VITALS (7 sets, daily range): BP systolic 131–174; BP diastolic 47–82
--- NOTE | 2020-07-13 03:54 | NUR ---
Assumed pt care at 1900. Pt is alert and oriented. No sign of distress noted in pt. Fall precaution in place. Assessment completed and documented. Scheduled meds administered to pt. Pt tolerated PO intake. No acute events overnight. Pt stable through the night. Continue to monitor. No further needs at this time.
--- NOTE | 2020-07-13 11:47 | NUR ---
[facility] has accepted the pt and would have a bed for him tomorrow pending ins auth. They have submitted for ins auth. Covid test requested per the unit RN for possible snf dc tomorrow. The [employer] liason is reaching out to the pt's spouse to see if they have any additional questions. Care team updated and case discussed at rounds. Awaiting ID imput today to see if the pt will need iv at during his snf stay. Amanuel is the oncall liason for the weekend and can be reached on her cell [phone] to coordinate transport and confirm wkend acceptance. Orders will need to be faxed to [phone] and report called to [phone]. Dc meeting planner to fax covid results, today's therapy and ID note to Laurel and initiate auth with [employer]. Pt is aware of the dc plan and agreeable.
--- NOTE | 2020-07-13 13:24 | NUR ---
NOTIFIED INTAKE AT [facility] THAT PT POSS DC OVER WEEKEND. IF PT DISCHARGES OVER WEEKEND FAX DC ORDERS/SUMMARY [phone] CALL [phone].
--- NOTE | 2020-07-13 18:57 | NUR ---
RECEIVED PT'S CARE AROUND 0720; PT. ON BED; ALERT; SR ON THE MONITOR; DURING AM ASSESSMENT PT. AOX4; NO C/O PAIN; AM MEDICATIONS GIVEN; UP TO CHAIR WITH OT; UP TO THE RESTHROOM WITH ASSISTANCE; EDUCATED ABOUT THE IMPORTANCE OF GETTING UP TO CHAIR; ST. UNDERSTANDING; D/C FLUIDS; GOOD APPETITE DURING BREAKFAST AND LUNCH; FOR LUNCH PT. REQUESTED HAMBURGUER, AMHARIC FRIES, AND CHICKEN NOODLE SOUP; ATE 90%; DURING THE AFTERNOON PT. C/O ABDOMINAL PAIN; 10; GRIMACING; RESTLESS; PRN PAIN MEDICATION GIVEN; NO PAIN RELIEVE; PHYSICIAN NOTIFIED; ORDERS ON PLACED; ORDERS RECEIVED; MEDICATION GIVEN; REASSESSMENT PT. RESTING WITH EYES CLOSED; SPOUSE AT THE BED SIDE UPDATED ABOUT POC AND PT'S HEALTH STATUS; ST. UNDERSTANDING; ELEVATED SBP; PRN MEDICATION GIVEN; MONITORING; ASSESSMENT CHARGED; FOLLOWING POC; WILL PASS ON REPORT;
[2020-07-14] VITALS (7 sets, daily range): BP systolic 135–151; BP diastolic 57–69
--- NOTE | 2020-07-14 03:48 | NUR ---
Assumed pt care at 1900. Pt os drowsy but arousable. No sign of distress noted in pt. Pt is alert and oriented but forgetful. Pt is laying in bed, resting comfortable. Vital signs stable. Increased tem noted but patient had so much blanke on and room temperature was high. Blankets taken off and thermosat turned dowm, temperatur retake was 98.6. Assessment completed and documented. Scheduled meds administered to pt. Tolerated PO intake. Pt is stable through the night. Pramod hose placed before bed. No acute events overnight. Continue to monitor. No further needs at this time.
--- NOTE | 2020-07-14 19:24 | NUR ---
PT CARE ASSUMED AT 0700. ASSESSMENTS CHARTED. MEDICATIONS CHARTED. SHAGUFTA ML. SINUS RHYTHM. ACHS. AX1, WALKER. OCCASIONALLY INCONTINENT OF B&B. WAS TO HAVE DISCHARGE , BUT SNF WOULD NOT TAKE HIM ACCORDING TO TENZIN (ALIE).
[2020-07-15] VITALS (9 sets, daily range): BP systolic 140–161; BP diastolic 54–73
--- NOTE | 2020-07-15 02:27 | NUR ---
SLEEPING WITHOUT PRESENT COMPLAINTS. WORKING ON GOALS AND PLAN OF CARE FOR NOC. PROGRESSING TOWARDS DISCHARGE GOALS. AWAITING CLEARENCE FROM INSURANCE FOR DISCHARGE STATUS. NO PRESENT COMPLAINTS OF PAIN OR SHORTNESS OF AIR. O2 PRN FOR PATIENT COMFORT. CONTINUE TO ASSES CLOSELY.
--- NOTE | 2020-07-15 16:20 | NUR ---
PT CARE ASSUMED AT 0700. ASSESSMENTS CHARTED. MEDICATIONS CHARTED. SHAGUFTA ML. SINUS RHYTHM. INCONTINENT OF BOWEL; SOFT, LT BROWN. ACHS. DR JUNIOR SPOKE WITH TENZIN (ALIE); PT MAY BE DISCHARGED TO SNF OR 07/16/20. PT IS NO LONGER TO TO BE TRANSFERRED TO [facility].
--- NOTE | 2020-07-16 03:25 | NUR ---
SLEPT MOST OF SHIFT. DENIES COMPLAINTS OF CHEST PAIN OR SHORTNESS OF AIR. WORKING ON GOALS AND PLAN OF CARE FOR NOC. PROGRESSING SLWOLY TOWARDS DISCHARGE GOALS. CONTINUE TO ASSES CLOSELY.
[2020-07-16 04:21] VITALS: BP 166/66
[2020-07-16 07:24] VITALS: BP 151/65
--- NOTE | 2020-07-16 07:33 | NUR ---
ASSUMMED CARE OF THIS PATIENT FROM THE NIGHT NURSE, YAYA ALONZO.
[2020-07-16] MEDS ORDERED: OXYCODONE HCL 55 MG PO (09:55)
[2020-07-16] MEDS ORDERED: AMOX TR-K CLV1 EAC4 PO (09:55)
[2020-07-16] MEDS ORDERED: SENNA8.8 MG/5 M PO (09:55)
[2020-07-16] MEDS ORDERED: LASIX 20 MG TAB20 MG PO (09:55)
[2020-07-16] MEDS ORDERED: ADULT LOW DOSE81 MG PO (09:55)
[2020-07-16] MEDS ORDERED: NORVASC5 MG PO (09:55)
[2020-07-16] MEDS ORDERED: HYDRALAZINE 5050 MG PO (09:55)
[2020-07-16 10:05] LABS: ALBUMIN 1.7 g/dL (3.4-5.0); CALCIUM 8.3 mg/dL (8.5-10.1); CREATININE 1.3 mg/dL (0.7-1.3); PHOSPHORUS 1.7 mg/dL (2.5-4.9); POTASSIUM 3.1 mmol/L (3.5-5.1)
[2020-07-16 11:41] VITALS: BP 141/52
[2020-07-16 15:12] VITALS: BP 153/65
--- NOTE | 2020-07-16 16:36 | NUR ---
PT DISCHARGING TODAY TO HOME WITH [facility] FAXED DC ORDERS/SUMMARY RECEIVED CONFIRMATION AND SPOKE WITH CHONG IN INTAKE SHE WILL ARRANGE VISITS WITH PT.
[2020-07-16 16:44] VITALS: BP 174/81
--- NOTE | 2020-07-16 16:49 | NUR ---
Spoke with [facility] SAM who reports after peer to peer insurance cont to deny. Sp with patient who worked with therapy today. Patient reports plan to dc home with HH. He reports plan to f/u with [facility] on outpatient basis. Attempted to call she was sleeping. Left my number for her to call me. Rec dc orders at 1600. Sp with patient alerted his has not returned call. reported orders rec for home health care. Patient reports his aware and she is on her way to hospital. DC life care planner to fax orders to [facility] care. Update Rn is on her way to hospital. No further needs.
[2020-07-16] MEDS ORDERED: K-PHOS ORIGINA500 MG PO (17:12)
[2020-07-16] MEDS ORDERED: LISINOPRIL10 MG PO (17:23)
[2020-07-16 17:44] VITALS: BP 153/65
--- NOTE | 2020-07-16 18:00 | NUR ---
SPOKE WITH DR JUNIOR CONCERNING AM LABS AND THE PATIENT'S DESIRE TO GO HOME. POTASSIUM GIVEN AND SCRIPT FOR HOME POTASSIUM NOTED. PATIENT AND ECUCATED ON THE NEED FOR POTASSIUM WHEN TAKING LASIX. VERBALIZED UNDERSTANDING. PATIENT AMBULATING IN THE ROOM WITH HIS WALKER. UP TO THE BATHROOM. PENIS NOTED TO BE EDEMATOUS, DR JUNIOR AWARE.
--- NOTE | 2020-07-16 20:56 | NUR ---
PATIENT DISCHARGED TO HOME VIA W/C WITH AND BELONGINGS AT 1915. DISCHARGE INSTRUCTIONS REVIEWED WITH PATIENT AND HIS WHO VERBALIZED UNDERSTANDING.
== END 2020-07-16 22:40 | disposition home health service (06) | DRG 871 ==
LOC: ER 01:47 → EROBS 05:36 → 2N 05:36 → 3W 06:10 → 2N 16:33
PROVIDERS: Emergency Medicine; Hospitalist; Internal Medicine Hematology & Oncology; Nurse Practitioner; Nurse Practitioner Family; Specialist; ADMIT Internal Medicine; ATTEND Internal Medicine
DX: A41.50 Gram-negative sepsis, unspecified (principal); E43 Unspecified severe protein-calorie malnutrition; N17.0 Acute kidney failure with tubular necrosis; I13.0 Hypertensive heart and chronic kidney disease with heart failure and stage 1 through stage 4 chronic kidney disease, or unspecified chronic kidney disease; N39.0 Urinary tract infection, site not specified; E11.42 Type 2 diabetes mellitus with diabetic polyneuropathy; E78.5 Hyperlipidemia, unspecified; K21.9 Gastro-esophageal reflux disease without esophagitis; E11.22 Type 2 diabetes mellitus with diabetic chronic kidney disease; G47.33 Obstructive sleep apnea (adult) (pediatric); E66.9 Obesity, unspecified; N18.9 Chronic kidney disease, unspecified; I50.9 Heart failure, unspecified; I48.91 Unspecified atrial fibrillation; I08.0 Rheumatic disorders of both mitral and aortic valves; E11.51 Type 2 diabetes mellitus with diabetic peripheral angiopathy without gangrene; D50.9 Iron deficiency anemia, unspecified; E55.9 Vitamin D deficiency, unspecified; B96.1 Klebsiella pneumoniae [K. pneumoniae] as the cause of diseases classified elsewhere; Z87.891 Personal history of nicotine dependence; Z86.711 Personal history of pulmonary embolism; Z86.73 Personal history of transient ischemic attack (TIA), and cerebral infarction without residual deficits; Z85.07 Personal history of malignant neoplasm of pancreas; Z86.718 Personal history of other venous thrombosis and embolism; Z92.21 Personal history of antineoplastic chemotherapy; Z98.42 Cataract extraction status, left eye; Z98.41 Cataract extraction status, right eye; Z68.31 Body mass index [BMI] 31.0-31.9, adult; Z79.01 Long term (current) use of anticoagulants; Z79.899 Other long term (current) drug therapy; Z79.4 Long term (current) use of insulin
CPT/HCPCS: 10081; 27000

== ENCOUNTER 2020-07-18 18:07 | Emergency (ER) | payer OTHER ==
[~2020-07-18] VITALS: Ht 180.3 cm; Wt 93.0 kg
[2020-07-18 18:07] VITALS: BP 193/82
[~2020-07-18 18:07] MED LIST changes: +ADULT LOW DOSE81 MG PO; +AMOX TR-K CLV1 EAC4 PO; +B-12500 MCG PO; +COZAAR 25 MG TA25 M2 PO; +FOLIC ACID1 MG PO; +HUMALOG PEN; +HYDRALAZINE 5050 MG PO; +K-PHOS ORIGINA500 MG PO; +KEFLEX500 M1 PO; +LASIX 20 MG TAB20 MG PO; +LASIX 40 MG TAB40 MG PO; +LISINOPRIL10 MG PO; +LYRICA150 MG PO; +MAGOX 400400 MG PO; +NORVASC5 MG PO; +PREGABALIN75 MG PO; +PROTONIX 20 MG20 M1 PO; +SENNA8.8 MG/5 M PO; +VITAMIN D325 MC1 PO; +ZOFRAN ODT4 MG PO
[2020-07-18 18:50] LABS: ABSOLUTE NEUTROPHILS 12.5 thou/uL (1.4-8.2); BASOPHILS 0.2 % (0.0-2.0); EOSINOPHILS 0.6 % (0.0-3.0); HEMATOCRIT 27.5 % (42.0-52.0); HEMOGLOBIN 8.6 gm/dL (14.0-18.0); LYMPHOCYTES 1.3 % (24.0-44.0); MCH 22.4 pg (26.0-34.0); MCHC 31.1 g/dL (28.0-37.0); MONOCYTES 4.2 % (1.0-8.0); POLYS 93.7 % (36.0-66.0); RBC 3.82 mil/uL (4.50-6.00); WBC 13.4 thou/uL (4.0-11.0)
[2020-07-18 18:55] LABS: CALCIUM 7.8 mg/dL (8.5-10.1); POTASSIUM 5.4 mmol/L (3.5-5.1)
[2020-07-18 19:01] LABS: DIRECT BILIRUBIN 1.3 mg/dL (<0.1-0.2); TOTAL BILIRUBIN 2.4 mg/dL (0.2-1.0); TOTAL PROTEIN 6.6 g/dL (6.4-8.2)
[2020-07-18 19:56] LABS: LARGE PLATELETS OCCASIONAL; PLATELET COUNT 345 thou/uL (150-400)
[2020-07-19] VITALS: BP 153/69
--- NOTE | 2020-07-20 02:05 | NUR ---
LAB CALLED RE BLOD CULTURES POSITIVE FOR GRAM + COCCI. NOTIFIED CHERI PANDEY AT [facility] WHERE PT WAS TRANSFERED ON 07/19/20
== END 2020-07-19 00:01 | disposition short-term general hospital (02) ==
LOC: ER 18:07 → EROBS 21:18 → ER 21:18
PROVIDERS: Emergency Medicine
DX: R50.9 Fever, unspecified (principal); K86.9 Disease of pancreas, unspecified; R74.8 Abnormal levels of other serum enzymes; E78.5 Hyperlipidemia, unspecified; K21.9 Gastro-esophageal reflux disease without esophagitis; I48.91 Unspecified atrial fibrillation; E11.22 Type 2 diabetes mellitus with diabetic chronic kidney disease; I13.0 Hypertensive heart and chronic kidney disease with heart failure and stage 1 through stage 4 chronic kidney disease, or unspecified chronic kidney disease; N18.9 Chronic kidney disease, unspecified; I50.9 Heart failure, unspecified; Z79.82 Long term (current) use of aspirin; Z79.899 Other long term (current) drug therapy